=== PATIENT | female | born 1935 ===

== ENCOUNTER 2016-07-28 05:42 | Day surgery (SDC) | payer MEDICARE ==
[2016-05-03 18:54] VITALS: PULSE 66
[2016-07-28 06:39] VITALS: BMI 25.8
[2016-07-28] MEDS ORDERED: Lidocaine Hydrochloride 10 ML INJ ONE (07:58)
[2016-07-28] MEDS ORDERED: Propofol 10 mg/ml Inj (20 ML) ONE ×2 (07:58)
--- NOTE | 2016-07-28 08:15 | CP.SDSHP ---
Same Day Surgery H & P - History Proposed Procedure: endoscopy Pre-Op Diagnosis: epig pain, anemia. wt loss - Previous Medical/Surgical History Cardiac: Arrhythmia Misc: Anemia - Allergies Allergies: Allergies meperidine HCl [From Demerol] Allergy (Severe, Verified 04/28/16 21:21) ANAPHYLAXIS Penicillins Allergy (Intermediate, Verified 04/28/16 21:21) SWELLING - Physical Exam Vital Signs: Vital Signs 07/28/16 06:58 Temperature 97.5 F L Pulse Rate 62 Respiratory 19 Rate Blood Pressure 144/54 L O2 Sat by Pulse 97 Oximetry Mental Status: Alert & Oriented x3 Neuro: WNL Heart: WNL Lungs: WNL GI: WNL - {Optional Preform as Required} Abdomen: WNL - Impression Impression: epig pain, anemia Pt. Evaluated Today:Candidate for Anesthesia & Procedure: Yes - Date & Time Date: 07/28/16 Time: 08:15 Short Stay Discharge - Short Stay Discharge Admitting Diagnosis/Reason for Visit: ABDOMINAL PAIN Disposition: HOME/ ROUTINE
[2016-07-28 08:36] VITALS: TEMP 98.1; O2SAT 100
[2016-07-28 09:28] VITALS: BP 140/60; PULSE 55; RESP 14
== END 2016-07-28 09:35 | disposition home or self-care (01) ==
LOC: C.ENDO 05:42
PROVIDERS: ATTEND Internal Medicine Gastroenterology
DX: K31.7 Polyp of stomach and duodenum (principal); D64.9 Anemia, unspecified; K20.9 Esophagitis, unspecified; K44.9 Diaphragmatic hernia without obstruction or gangrene
CPT/HCPCS: 43270; J2704

== ENCOUNTER 2016-09-03 20:34 | Emergency (ER) | payer MEDICARE ==
[2016-09-03 20:35] VITALS: PULSE 66; BMI 25.8
[2016-09-03] MEDS ORDERED: Albuterol-Ipratrop 3 mg / 0.5 (3 ml) UD ONE (21:17)
[2016-09-03 21:22] VITALS: RESP 22
[2016-09-03] MEDS ORDERED: Albuterol-Ipratrop 3 mg / 0.5 (3 ml) UD INH STA (21:26)
[2016-09-03 22:02] LABS: BASO # 0.2 K/uL (0.0-0.2); BASO % 1.1 % (0.0-2.0); EOS # 1.9 K/uL (0.0-0.7); EOS % 9.3 % (0.0-4.0); HEMATOCRIT 35.8 % (34.0-47.0); LYMPH # 0.3 K/uL (1.0-4.3); LYMPH % 1.3 % (20.0-40.0); MEAN CORPUSCULAR HEMOGLOBIN 29.1 pg (27.0-31.0); MEAN CORPUSCULAR HGB CONC 32.1 g/dL (33.0-37.0); MEAN PLATELET VOLUME 9.7 fL (7.2-11.7); MONO # 0.6 K/uL (0.0-0.8); MONO % 3.1 % (0.0-10.0); PLATELET COUNT 160 K/uL (130-400); RED CELL DISTRIBUTION WIDTH 15.2 % (11.5-14.5)
[2016-09-03 22:05] LABS: MEAN CELL VOLUME 90.7 fL (81.0-99.0)
[2016-09-03 22:12] LABS: CHLORIDE 94 mmol/L (98-107)
[2016-09-03 22:13] LABS: POTASSIUM 4.2 mmol/L (3.6-5.2); SODIUM 132 mmol/L (132-148)
[2016-09-03 22:15] LABS: ALB/GLOB RATIO 1.2 (1.0-2.1); ALKALINE PHOSPHATASE 82 U/L (38-126); AST/SGOT 18 U/L (14-36); BILIRUBIN,TOTAL 1.1 mg/dL (0.2-1.3); BLOOD UREA NITROGEN 24 mg/dL (7-17); CARBON DIOXIDE 26 mmol/L (22-30); GFR AFRICAN-AMERICAN > 60; GLUCOSE,RANDOM 136 mg/dL (65-105); TOTAL PROTEIN 7.4 g/dL (6.3-8.3)
[2016-09-03 22:16] LABS: ALT/SGPT 20 U/L (9-52); CALCIUM 8.5 mg/dl (8.6-10.4)
[2016-09-03 22:35] LABS: EOSINOPHIL 12 % (0-4); NEUTROPHIL 84 % (50-75); TOTAL CELLS COUNTED 100
[2016-09-03 22:36] LABS: LARGE PLATELETS PRESENT
[2016-09-03 22:57] LABS: RBC URINE 8 /hpf (0-3); RENAL EPITHELIAL < 1 /hpf (0-3); URINE BACTERIA RARE (<OCC); URINE BILIRUBIN NEGATIVE (NEGATIVE); URINE BLOOD 1+ (NEGATIVE); URINE COLOR Yellow (YELLOW); URINE GLUCOSE (UA) NORMAL (Normal); URINE KETONE NEGATIVE (NEGATIVE); URINE LEUKOCYTE ESTERASE TRACE Leu/uL (Negative); URINE PROTEIN NEGATIVE (NEGATIVE); URINE UROBILINOGEN NORMAL mg/dL (0.2-1.0); WBC URINE 4 /hpf (0-5)
[2016-09-03 23:08] LABS: VENOUS BLOOD GAS BASE EXCESS 4.2 mmol/L (0.0-2.0); VENOUS BLOOD GAS PCO2 40 mmHg (40-60); VENOUS BLOOD PH 7.46 (7.32-7.43)
[2016-09-03 23:24] VITALS: BP 106/56; PULSE 71; TEMP 97.7
--- NOTE | 2016-09-03 23:24 | C.PDOC ---
History Of Present Illness Patient is an 80 year old female who presents to the ER with a complaint of trouble breathing as per son. Patient had trouble breathing yesterday that resolved on its own; however, this afternoon patient had trouble breathing again and was sent by PCP to the ER. Patient is currently on macrobid for a UTI that was diagnosed by PCP. Son had culture results with him that showed E-coli sensitive to macrobid. Patient is complaint with medication and denies any symptoms of cough, chest pain, fever, chills, abdominal pain, nausea or vomiting. Time Seen by Provider: 09/03/16 21:13 Chief Complaint (Nursing): Shortness Of Breath History Per: Patient History/Exam Limitations: no limitations Onset/Duration Of Symptoms: Hrs Current Symptoms Are (Timing): Still Present Initiating Event: Other (Not known) Current Respiratory Medications: See Home Med List Associated Symptoms: denies: Fever, Chills, Chest Pain, Other (Cough, abdominal pain, nausea, vomiting) Reports Recently: Treated By A Physician Recent travel outside of the [place]: No Past Medical History Reviewed: Historical Data, Nursing Documentation, Vital Signs Vital Signs: Last Vital Signs Temp 97.7 F 09/03/16 23:23 Pulse 71 09/03/16 23:23 Resp 22 09/03/16 23:23 BP 106/56 L 09/03/16 23:23 Pulse Ox 98 09/03/16 23:26 - Medical History PMH: Asthma, Atrial Fibrillation, CHF, COPD, HTN, Mitral Valve Prolapse (MITRAL VALVE REPAIR), Sleep Apnea Surgical History: Appendectomy - [facility] Procedures DRAINAGE OF STOMACH WITH DRAINAGE DEVICE, VIA OPENING (04/28/16) RELEASE SMALL INTESTINE, OPEN APPROACH (03/11/15) Family History: States: Unknown Family Hx - Social History Hx Tobacco Use: No Hx Alcohol Use: No - Immunization History Hx Tetanus Toxoid Vaccination: No Hx Influenza Vaccination: Yes Hx Pneumococcal Vaccination: Yes Review Of Systems Constitutional: Negative for: Fever, Chills Cardiovascular: Negative for: Chest Pain Respiratory: Positive for: Shortness of Breath Gastrointestinal: Negative for: Nausea, Vomiting, Abdominal Pain Physical Exam - Physical Exam Appears: Non-toxic, No Acute Distress Skin: Normal Color, Warm, Dry Head: Atraumatic, Normacephalic Oral Mucosa: Moist Chest: Symmetrical, No Tenderness Cardiovascular: Rhythm Regular, No Murmur Respiratory: Decreased Breath Sounds, No Rales, Rhonchi (At bases), No Wheezing Gastrointestinal/Abdominal: Soft, No Tenderness Extremity: Pedal Edema (1+) Neurological/Psych: Oriented x3, Normal Speech, Normal Cognition ED Course And Treatment - Laboratory Results Result Diagrams: 09/03/16 21:57 09/03/16 21:57 O2 Sat by Pulse Oximetry: 98 - Radiology CXR: Interpreted by Me, Viewed By Me CXR Interpretation: Yes: Other (CHF) Medical Decision Making Medical Decision Making: Impression: 80 year old female with SOB. Plan: * EKG * CXR * urine culture * Duoneb * Lasix 1 duoneb was given with minimal improvement. Lasix was administered with moderate improvement. Patient had a white count of 20,000 and a mildly elevated BMP. Discussed with Dr. Cruz, patients PCP, who requested lactate; if results are ok then patient can be discharged home with lasix and instructions to follow up with him at the office on Monday. Disposition Counseled Patient/Family Regarding: Diagnosis, Need For Followup - Disposition Referrals: Bambi Cruz MD [Staff Provider] - Disposition: HOME/ ROUTINE Disposition Time: 23:21 Condition: GOOD Additional Instructions: Increase lasix to twice a day Follow up with dr Cruz 2- 3 days Return to the ED for any new or worsening symptoms Instructions: Heart Failure (ED) Print Language: SAO TOMEAN - Clinical Impression Clinical Impression: Dyspnea, CHF (congestive heart failure) - Scribe Statement The provider has reviewed the documentation as recorded by the Scribe Louis Maldonado All medical record entries made by the Scribe were at my direction and personally dictated by me. I have reviewed the chart and agree that the record accurately reflects my personal performance of the history, physical exam, medical decision making, and the department course for this patient. I have also personally directed, reviewed, and agree with the discharge instructions and disposition.
[2016-09-03 23:25] VITALS: O2SAT 98
--- NOTE | 2016-09-04 08:27 | RAD ---
PROCEDURE: CHEST RADIOGRAPH, 1 VIEW HISTORY: Shortness of breath COMPARISON: 05/31/2016 FINDINGS: LUNGS: Moderate to severe venous congestion. Prominent consolidative changes at the mid to lower lung zones with associated small to moderate bilateral pleural effusions. Scattered nodularity in both lungs. Biapical pleural thickening with upper lobe granulomatous changes. PLEURA: As above. CARDIOVASCULAR: Cardiomegaly. Calcification at the aortic knob. OSSEOUS STRUCTURES: Degenerative changes in the spine and shoulders. VISUALIZED UPPER ABDOMEN: Normal. OTHER FINDINGS: None. IMPRESSION: Moderate to severe venous congestion. Prominent consolidative changes at the mid to lower lung zones with associated small to moderate bilateral pleural effusions. Scattered nodularity in both lungs. Biapical pleural thickening with upper lobe granulomatous changes. Cardiomegaly. Calcification at the aortic knob.
== END 2016-09-03 23:35 | disposition home or self-care (01) ==
LOC: C.ER 20:34
DX: R06.00 Dyspnea, unspecified (principal); I11.0 Hypertensive heart disease with heart failure; I50.9 Heart failure, unspecified; J44.9 Chronic obstructive pulmonary disease, unspecified; J45.909 Unspecified asthma, uncomplicated
CPT/HCPCS: 71010; 80053; 81001; 82803; 83880; 84484; 85025; 87086; 96374; 99284; J1940

== ENCOUNTER 2018-03-13 13:13 | Observation (INO) | payer MEDICARE ==
[2018-03-13 13:14] VITALS: BMI 25.8
--- NOTE | 2018-03-13 14:19 | C.PDOC ---
History Of Present Illness 82 y/o female with a PMHx of HTN, COPD, CHF, presents to the ED complaining of 3 days of shortness of breath, worsening since onset. SOB worsens with exertion. States she has been unable to sleep due to the dyspnea. Otherwise patient denies cough, phlegm, nausea, vomiting, or fever. She reports mild swelling and generalized weakness/fatigue. Reports increased stress in the last 2 months as her has been sick. PMD: Dr. Cruz Cardiology: Dr. Castaneda Time Seen by Provider: 03/13/18 13:26 Chief Complaint (Nursing): Respiratory Distress History Per: Patient History/Exam Limitations: no limitations Onset/Duration Of Symptoms: Days Current Symptoms Are (Timing): Worse Exacerbating Factor(s): Exertion Past Medical History Reviewed: Historical Data, Nursing Documentation, Vital Signs Vital Signs: Last Vital Signs Temp 97.4 F L 03/13/18 13:16 Pulse 69 03/13/18 13:16 Resp 18 03/13/18 13:16 BP 158/75 H 03/13/18 13:16 Pulse Ox 98 03/13/18 13:16 - Medical History PMH: Asthma, Atrial Fibrillation, CHF, COPD, HTN, Mitral Valve Prolapse (MITRAL VALVE REPAIR), Sleep Apnea Denies: Chronic Kidney Disease Surgical History: Appendectomy Other Surgeries: Mitral valve repair - [facility] Procedures DRAINAGE OF STOMACH WITH DRAINAGE DEVICE, VIA OPENING (04/28/16) RELEASE SMALL INTESTINE, OPEN APPROACH (03/11/15) Family History: States: Unknown Family Hx - Social History Hx Tobacco Use: No Hx Alcohol Use: No Hx Substance Use: No - Immunization History Hx Tetanus Toxoid Vaccination: No Hx Influenza Vaccination: Yes Hx Pneumococcal Vaccination: Yes Review Of Systems Except As Marked, All Systems Reviewed And Found Negative. Constitutional: Positive for: Weakness (and fatigue). Negative for: Fever, Chills Eyes: Negative for: Vision Change Cardiovascular: Negative for: Chest Pain Respiratory: Positive for: Shortness of Breath, SOB with Excertion. Negative for: Cough, Sputum Gastrointestinal: Negative for: Nausea, Vomiting, Abdominal Pain Neurological: Negative for: Headache, Dizziness Physical Exam - Physical Exam Appears: Non-toxic, In Acute Distress (Mild respiratory distress) Skin: Normal Color, Warm, Dry Head: Atraumatic, Normacephalic Eye(s): bilateral: Normal Inspection, PERRL, EOMI Nose: No Flaring Oral Mucosa: Moist Lips: Normal Appearing Neck: Normal ROM, Trachea Midline Lymphatic: No Adenopathy Chest: Symmetrical Cardiovascular: Rhythm Regular, No Murmur Respiratory: No Accessory Muscle Use, Rales (at the bilateral bases), No Wheezing Gastrointestinal/Abdominal: Soft, No Tenderness, No Distention Back: No CVA Tenderness, No Vertebral Tenderness Extremity: Normal ROM, No Calf Tenderness, No Deformity, Swelling (Trace bilateral lower extremity edema) Pulses: Left Radial: Normal, Right Radial: Normal Neurological/Psych: Oriented x3, Other (Anxious affect) ED Course And Treatment - Laboratory Results Result Diagrams: 03/13/18 14:33 03/13/18 14:33 O2 Sat by Pulse Oximetry: 98 (NC) Pulse Ox Interpretation: Normal Medical Decision Making Medical Decision Making: Impression: Shortness of breath Differential diagnosis includes but is not limited to: pleural effusion, pneumonia, ACS, COPD, anemia Plan: --EKG --CMP --Troponin I --Pro-BNP --Magnesium --CBC --D dimer --PTT/PT --Chest x-ray --Placed on O2 via nasal cannula Labs demonstrate increase in pro-BNP. Otherwise no significant abnormalities. Discussed w/ PMD Dr. Cruz, trial of Lasix to be given to patient for relief of dyspnea. If improves, patient can be discharged home with follow up. Discussed with patient plan of care. 2200 On reeval pt continues to be dyspneic with exertion. Pt to be hospitalized for further evaluation Disposition - Disposition Disposition: HOSPITALIZED Disposition Time: 20:00 Condition: FAIR - POA Present On Arrival: None - Clinical Impression Clinical Impression: Congestive heart failure, Dyspnea - Scribe Statement The provider has reviewed the documentation as recorded by the Jessie Osborne Provider Attestation: All medical record entries made by the Jessie were at my direction and personally dictated by me. I have reviewed the chart and agree that the record accurately reflects my personal performance of the history, physical exam, medical decision making, and the department course for this patient. I have also personally directed, reviewed, and agree with the discharge instructions and disposition.
[2018-03-13 14:38] LABS: BASO % 0.3 % (0.0-2.0); EOS # 0.7 K/uL (0.0-0.7); EOS % 8.2 % (0.0-4.0); HEMOGLOBIN 11.8 g/dL (11.0-16.0); LYMPH # 0.6 K/uL (1.0-4.3); LYMPH % 6.8 % (20.0-40.0); MEAN CELL VOLUME 90.7 fL (81.0-99.0); MEAN CORPUSCULAR HEMOGLOBIN 30.1 pg (27.0-31.0); MEAN CORPUSCULAR HGB CONC 33.2 g/dL (33.0-37.0); MEAN PLATELET VOLUME 9.9 fL (7.2-11.7); MONO # 0.6 K/uL (0.0-0.8); MONO % 7.1 % (0.0-10.0); NEUT # 6.3 K/uL (1.8-7.0); NEUT % 77.6 % (50.0-75.0); PLATELET COUNT 154 K/uL (130-400); RBC 3.92 Mil/uL (3.80-5.20); RED CELL DISTRIBUTION WIDTH 16.1 % (11.5-14.5); WHITE BLOOD COUNT 8.1 K/uL (4.8-10.8)
[2018-03-13 15:03] LABS: ALB/GLOB RATIO 1.3 (1.0-2.1); ALBUMIN 4.3 g/dL (3.5-5.0)
[2018-03-13 15:13] LABS: INR 1.3; PARTIAL THROMBOPLASTIN TIME 34 SECONDS (21-34); PROTHROMBIN TIME 14.4 SECONDS (9.7-12.2)
[2018-03-13 15:15] LABS: TROPONIN I 0.016 ng/mL (0.00-0.120)
[2018-03-13 15:22] LABS: D DIMER < 200 ng/mlDDU (0-243)
[2018-03-13] MEDS ORDERED: Nitroglycerin 2% Ointment Foilpak UD TOP STA (15:23)
[2018-03-13 15:29] LABS: BASOPHIL 1 % (0-2); EOSINOPHIL 5 % (0-4); LYMPHOCYTE 8 % (20-40); MONOCYTE 8 % (0-10); NEUTROPHIL 78 % (50-75); PLATELET ESTIMATE NORMAL (NORMAL); TOTAL CELLS COUNTED 100
[2018-03-13 15:30] LABS: ANISOCYTOSIS SLIGHT; HYPOCHROMIC SLIGHT; POIKILOCYTOSIS SLIGHT
[2018-03-13] MEDS ORDERED: Nitroglycerin 2% Ointment Foilpak UD TOP ONE (15:40)
--- NOTE | 2018-03-13 16:58 | RAD ---
HISTORY: SOB COMPARISON: Chest x-ray performed 08/30/17 TECHNIQUE: Chest PA and lateral FINDINGS: LUNGS: Small left pleural effusion and/or consolidation. Biapical pleural thickening. No definite pneumothorax. CARDIOVASCULAR: Cardiomegaly. Ectatic aorta. Dense atherosclerotic calcifications. OSSEOUS STRUCTURES: Degenerative changes. VISUALIZED UPPER ABDOMEN: Unremarkable. OTHER FINDINGS: None. IMPRESSION: Cardiomegaly. Small left pleural effusion and/or consolidation. Biapical pleural thickening.
[2018-03-13 18:23] VITALS: RESP 20
[2018-03-13] MEDS ORDERED: Albuterol-Ipratrop 3 mg / 0.5 (3 ml) UD IH PRN ×2 (19:03→19:15)
--- NOTE | 2018-03-13 19:14 | CP.PCM.HP ---
History of Present Illness - History of Present Illness History of Present Illness: Chief complaint: Increasing shortness of breath, fatigue, unable to lie down History present illness: 82-year-old female with history of hypertension, atrial fibrillation, mitral valve repair, status post mitral valve prolapse repair, postoperative pleural effusion and the pulmonary fibrosis, history of sleep apnea using CPAP, history of congestive heart failure, on anticoagulation. Patient came to the office a few weeks ago at that time she started having some weight gain, diuretics was increased. But the patient started having increasing symptoms of shortness of breath. For 4 days she have worsening shortness of breath even at rest. She was not able to do given few steps to go to the bathroom because of increasing shortness of breath. She was not able to lie flat. She is using oxygen as well as BiPAP, after 20 minutes she has to get up from the bed because she is feeling choking sensation with sleeping. Patient denies any fever chills or any other systemic symptoms. No chest pain noted. Patient is also very anxious and sometimes concerned about palpitation, chest tightness. Past medical history: Hypertension, atrial fibrillation, mitral valve repair, congestive heart failure, ablation Surgical history includes small bowel resection surgery, mitral valve repair. Allergies allergic to Demerol and had allergic to Coumadin. Family history noncontributory Social history lifelong nonsmoker, nonalcoholic, she used to work in the chemical factory in the past no history of gas are seen exposure Review of system: Patient is currently complaining of increasing shortness of breath. Unable to lie flat. Exertional dyspnea noted. Recently getting worse with even at rest the shortness of breath noted. No chest pain. Leg swelling noted. Weight gain present. Increasingly anxious. In spite of the oxygen no improvement recently noted On examination: Vital signs reviewed Chest bilateral good air entry. Regular heart sound noted. Nontender abdomen. The patient has some mild expiratory wheezing noted. Pedal edema bilaterally noted. She has a significant weight gain recently Patient's labs reviewed Elevated proBNP Noted. Cardiac enzymes negative Chest x-ray mild vascular congestion noted. Otherwise nonspecific Assessment/condition: 82-year-old female with history of hypertension atrial fibrillation mitral valve repair, congestive heart failure, pleural effusion History of congestive heart failure. Atrial flutter fibrillation. On anticoagulant. Patient came to the emergency room with acute exacerbation of systolic decompensated heart failure likely. We will get echocardiogram. Cardiology evaluation. Patient will continue to receive intravenous diuretics. Daily weight monitoring. Oxygen supplementation. BiPAP. DVT GI prophylaxis and will follow the patient I spoke to the patient's daughter in detail. We will get a cardiology evaluation and will follow the patient Present on Admission - Present on Admission Any Indicators Present on Admission: No History of DVT/PE: No History of Uncontrolled Diabetes: No Urinary Catheter: No Decubitus Ulcer Present: No Past Patient History - Infectious Disease Hx of Infectious Diseases: None - Past Medical History & Family History Past Medical History?: Yes - Past Social History Smoking Status: Never Smoked - CARDIAC Hx Atrial Fibrillation: Yes Hx Congestive Heart Failure: Yes Hx Hypertension: Yes Hx Mitral Valve Prolapse: Yes (MITRAL VALVE REPAIR) - PULMONARY Hx Asthma: Yes Hx Chronic Obstructive Pulmonary Disease (COPD): Yes Hx Sleep Apnea: Yes - NEUROLOGICAL Hx Neurological Disorder: Yes Hx Vertigo: Yes - HEENT Hx HEENT Problems: Yes Hx Cataracts: Yes - RENAL Hx Chronic Kidney Disease: No - ENDOCRINE/METABOLIC Hx Endocrine Disorders: No - HEMATOLOGICAL/ONCOLOGICAL Hx Blood Disorders: No - INTEGUMENTARY Hx Dermatological Problems: No - MUSCULOSKELETAL/RHEUMATOLOGICAL Hx Musculoskeletal Disorders: No - GASTROINTESTINAL Hx Gastrointestinal Disorders: No Other/Comment: H/O INTESTINAL OBSTRUX X 3 - GENITOURINARY/GYNECOLOGICAL Hx Genitourinary Disorders: Yes Hx Incontinence: Yes - PSYCHIATRIC Hx Substance Use: No - SURGICAL HISTORY Hx Appendectomy: Yes - ANESTHESIA Hx Anesthesia: Yes Hx Anesthesia Reactions: No Hx Malignant Hyperthermia: No Meds Allergies/Adverse Reactions: Allergies Allergy/AdvReac Type Severity Reaction Status Date / Time meperidine HCl [From Demerol] Allergy Severe ANAPHYLAXIS Verified 04/28/16 21:21 Penicillins Allergy Intermediate SWELLING Verified 04/28/16 21:21 Results - Vital Signs Recent Vital Signs: Last Vital Signs Temp 97.2 F L 03/13/18 17:45 Pulse 68 03/13/18 17:45 Resp 20 03/13/18 17:45 BP 159/79 H 03/13/18 17:45 Pulse Ox 99 03/13/18 17:45 - Labs Result Diagrams: 03/13/18 14:33 03/13/18 14:33 Labs: Laboratory Results - last 24 hr 03/13/18 03/13/18 03/13/18 14:33 14:33 14:45 WBC 8.1 D RBC 3.92 Hgb 11.8 Hct 35.6 MCV 90.7 MCH 30.1 MCHC 33.2 RDW 16.1 H Plt Count 154 MPV 9.9 Neut % (Auto) 77.6 H Lymph % (Auto) 6.8 L [place] % (Auto) 7.1 Eos % (Auto) 8.2 H Baso % (Auto) 0.3 Neut # (Auto) 6.3 Lymph # (Auto) 0.6 L [place] # (Auto) 0.6 Eos # (Auto) 0.7 Baso # (Auto) 0.0 Neutrophils % (Manual) 78 H Lymphocytes % (Manual) 8 L Monocytes % (Manual) 8 Eosinophils % (Manual) 5 H Basophils % (Manual) 1 Platelet Estimate Normal Hypochromasia (manual) Slight Poikilocytosis (manual Slight Anisocytosis (manual) Slight PT INR APTT D-Dimer, Quantitative Sodium 139 Potassium 4.0 Chloride 99 Carbon Dioxide 28 Anion Gap 16 BUN 28 H Creatinine 1.2 Est GFR ( Amer) 52 Est GFR (Non-Af Amer) 43 Random Glucose 107 H Calcium 9.0 Magnesium 2.1 Total Bilirubin 1.3 AST 42 H ALT 36 Alkaline Phosphatase 96 Troponin I 0.0160 NT-Pro-B Natriuret Pep 2890 H Total Protein 7.5 Albumin 4.3 Globulin 3.3 Albumin/Globulin Ratio 1.3 Blood Type O NEGATIVE Antibody Screen Negative 03/13/18 14:47 WBC RBC Hgb Hct MCV MCH MCHC RDW Plt Count MPV Neut % (Auto) Lymph % (Auto) [place] % (Auto) Eos % (Auto) Baso % (Auto) Neut # (Auto) Lymph # (Auto) [place] # (Auto) Eos # (Auto) Baso # (Auto) Neutrophils % (Manual) Lymphocytes % (Manual) Monocytes % (Manual) Eosinophils % (Manual) Basophils % (Manual) Platelet Estimate Hypochromasia (manual) Poikilocytosis (manual Anisocytosis (manual) PT 14.4 H INR 1.3 APTT 34 D-Dimer, Quantitative < 200 Sodium Potassium Chloride Carbon Dioxide Anion Gap BUN Creatinine Est GFR ( Amer) Est GFR (Non-Af Amer) Random Glucose Calcium Magnesium Total Bilirubin AST ALT Alkaline Phosphatase Troponin I NT-Pro-B Natriuret Pep Total Protein Albumin Globulin Albumin/Globulin Ratio Blood Type Antibody Screen
[2018-03-14 06:48] LABS: BASO # 0.1 K/uL (0.0-0.2); EOS # 1.3 K/uL (0.0-0.7); EOS % 13.7 % (0.0-4.0); HEMOGLOBIN 10.8 g/dL (11.0-16.0); LYMPH # 0.6 K/uL (1.0-4.3); LYMPH % 6.9 % (20.0-40.0); MEAN CELL VOLUME 90.1 fL (81.0-99.0); MEAN CORPUSCULAR HEMOGLOBIN 29.8 pg (27.0-31.0); MEAN CORPUSCULAR HGB CONC 33.1 g/dL (33.0-37.0); MEAN PLATELET VOLUME 9.5 fL (7.2-11.7); MONO # 0.7 K/uL (0.0-0.8); MONO % 7.8 % (0.0-10.0); NEUT # 6.6 K/uL (1.8-7.0); NEUT % 70.6 % (50.0-75.0); PLATELET COUNT 142 K/uL (130-400); RBC 3.63 Mil/uL (3.80-5.20); RED CELL DISTRIBUTION WIDTH 15.8 % (11.5-14.5); WHITE BLOOD COUNT 9.4 K/uL (4.8-10.8)
[2018-03-14 07:00] LABS: ALB/GLOB RATIO 1.3 (1.0-2.1); ALBUMIN 3.6 g/dL (3.5-5.0); CALCIUM 8.6 mg/dl (8.6-10.4)
[2018-03-14 07:08] LABS: CK-MB 2.2 ng/mL (0.0-3.38); TROPONIN I 0.036 ng/mL (0.00-0.120)
[2018-03-14 08:34] LABS: ANISOCYTOSIS SLIGHT; BASOPHIL 1 % (0-2); EOSINOPHIL 14 % (0-4); HYPOCHROMIC SLIGHT; LYMPHOCYTE 4 % (20-40); MONOCYTE 8 % (0-10); NEUTROPHIL 73 % (50-75); PLATELET ESTIMATE NORMAL (NORMAL); POIKILOCYTOSIS SLIGHT; TOTAL CELLS COUNTED 100
[2018-03-14 08:35] LABS: OVALOCYTES SLIGHT
[2018-03-14] MEDS: Potassium Chloride 20 mEq/15 ml LIQ UD PO SCH (09:31)
[2018-03-14] MEDS: Metoprolol Succinate 25 mg XL Tab PO SCH (09:31)
--- NOTE | 2018-03-14 12:21 | CARD ---
APPROVED REPORT Date of service: 03/13/2018 EKG Measurement Heart [id number] ID [id number] <Conclusion> Normal sinus rhythm Left axis deviation Pulmonary disease pattern Nonspecific ST abnormality Abnormal ECG
[2018-03-14 15:57] VITALS: O2SAT 100
[2018-03-14] MEDS ORDERED: Digoxin 125 mcg (0.125 mg) Tab PO SCH (18:00)
[2018-03-14 18:25] VITALS: PULSE 69
--- NOTE | 2018-03-14 21:20 | CP.PCM.PN ---
Subjective - Date & Time of Evaluation Date of Evaluation: 03/14/18 Time of Evaluation: 21:18 - Subjective Subjective: Patient is now sitting up, she is also standing up and able to walk comfortably. Exertional dyspnea still noted. Patient has a JVD elevated noted. palpitation noted. Oxygen saturation is otherwise normal. Without oxygen room air oxygen saturation is 95%. patient denies any chest pain now. She denies any nausea vomiting. She is using the BiPAP 10/5 45% FiO2, she is feeling much better. On examination: Vital signs stable. Chest good air entry Regular heart sounds Systolic murmur noted. Abdomen soft. No pedal edema Echocardiogram done, results are pending. Labs reviewed Elevated CPK level minimally noted. Patient is currently receiving intravenous Lasix. Assessment: 82-year-old female with a history of multiple medical problems including mitral valve repair. A. fib. Pulmonary hypertension. Now suffering from advanced cor pulmonale. Pulmonary hypertension. Obstructive sleep apnea. Associated with worsening decompensated diastolic heart failure. In my opinion patient will benefit with BiPAP at home. Oxygen to continue. We will get the cardiology information about the echocardiogram. We will discuss with environmental services floor tech and family and the possible discharge planning tomorrow Objective - Vital Signs/Intake and Output Vital Signs (last 24 hours): Temp Pulse Resp BP Pulse Ox 98.1 F 62 20 121/65 100 03/14/18 15:55 03/14/18 15:55 03/14/18 15:55 03/14/18 15:55 03/14/18 15:55 Intake and Output: 03/14/18 03/15/18 18:59 06:59 Intake Total 300 Balance 300 - Medications Medications: Current Medications Albuterol/Ipratropium (Duoneb 3 Mg/0.5 Mg (3 Ml) Ud) 3 ml IH RQ6 PRN PRN Reason: Cough Last Admin: 03/14/18 13:15 Dose: 3 ml Alprazolam (Xanax) 0.5 mg PO HS PRN PRN Reason: insomnia Last Admin: 03/13/18 22:11 Dose: 0.5 mg Apixaban (Eliquis) 5 mg PO Q12 [facility] Last Admin: 03/14/18 09:31 Dose: 5 mg Digoxin (Digoxin) 0.125 mg PO DAILY@1800 [facility] Last Admin: 03/14/18 18:24 Dose: 0.125 mg Furosemide (Lasix) 20 mg PO DAILY [facility] Metoprolol Succinate (Toprol Xl) 25 mg PO DAILY [facility] Last Admin: 03/14/18 09:31 Dose: 25 mg Montelukast Sodium (Singulair) 10 mg PO HS [facility] Last Admin: 03/13/18 21:31 Dose: 10 mg Potassium Chloride (Potassium Chloride Oral Soln) 20 meq PO DAILY [facility] Last Admin: 03/14/18 09:31 Dose: 20 meq - Labs Labs: 03/14/18 06:35 03/14/18 06:35 PT 14.4 SECONDS (9.7-12.2) H 03/13/18 14:47 INR 1.3 03/13/18 14:47 APTT 34 SECONDS (21-34) 03/13/18 14:47
--- NOTE | 2018-03-14 22:10 | CP.PCM.CON ---
History of Present Illness - History of Present Illness History of Present Illness: CC: Dyspnea 82 y/o female with a PMHx of HTN, COPD, CHF, presents to the ED complaining of 3 days of shortness of breath, worsening since onset. SOB worsens with exertion. States she has been unable to sleep due to the dyspnea. Otherwise patient denies cough, phlegm, nausea, vomiting, or fever. She reports mild swelling and generalized weakness/fatigue. Reports increased stress in the last 2 months as her has been sick. PMD: Dr. Cruz Chief Complaint (Nursing): Respiratory Distress History Per: Patient History/Exam Limitations: no limitations Onset/Duration Of Symptoms: Days Current Symptoms Are (Timing): Worse Exacerbating Factor(s): Exertion Past Medical History Reviewed: Historical Data, Nursing Documentation, Vital Signs Vital Signs: Last Vital Signs Temp 97.4 F L 03/13/18 13:16 Pulse 69 03/13/18 13:16 Resp 18 03/13/18 13:16 BP 158/75 H 03/13/18 13:16 Pulse Ox 98 03/13/18 13:16 - Medical History PMH: Asthma, Atrial Fibrillation, CHF, COPD, HTN, Mitral Valve Prolapse (MITRAL VALVE REPAIR), Sleep Apnea Denies: Chronic Kidney Disease Surgical History: Appendectomy Other Surgeries: Mitral valve repair - [facility] Procedures DRAINAGE OF STOMACH WITH DRAINAGE DEVICE, VIA OPENING (04/28/16) RELEASE SMALL INTESTINE, OPEN APPROACH (03/11/15) Family History: States: Unknown Family Hx - Social History Hx Tobacco Use: No Hx Alcohol Use: No Hx Substance Use: No - Immunization History Hx Tetanus Toxoid Vaccination: No Hx Influenza Vaccination: Yes Hx Pneumococcal Vaccination: Yes Review Of Systems Except As Marked, All Systems Reviewed And Found Negative. Constitutional: Positive for: Weakness (and fatigue). Negative for: Fever, Chills Eyes: Negative for: Vision Change Cardiovascular: Negative for: Chest Pain Respiratory: Positive for: Shortness of Breath, SOB with Excertion. Negative for: Cough, Sputum Gastrointestinal: Negative for: Nausea, Vomiting, Abdominal Pain Neurological: Negative for: Headache, Dizziness Physical Exam - Physical Exam Appears: Non-toxic, In Acute Distress (Mild respiratory distress) Skin: Normal Color, Warm, Dry Head: Atraumatic, Normacephalic Eye(s): bilateral: Normal Inspection, PERRL, EOMI Nose: No Flaring Oral Mucosa: Moist Lips: Normal Appearing Neck: Normal ROM, Trachea Midline Lymphatic: No Adenopathy Chest: Symmetrical Cardiovascular: Rhythm Regular, No Murmur Respiratory: No Accessory Muscle Use, Rales (at the bilateral bases), No Wheezing Gastrointestinal/Abdominal: Soft, No Tenderness, No Distention Back: No CVA Tenderness, No Vertebral Tenderness Extremity: Normal ROM, No Calf Tenderness, No Deformity, Swelling (Trace bilateral lower extremity edema) Pulses: Left Radial: Normal, Right Radial: Normal Neurological/Psych: Oriented x3, Other (Anxious affect) Medical Decision Making Medical Decision Making: Impression: Shortness of breath Severe Pulmonary HTN Hx MV repair O2/BiPAP and Lasix as needed Likely benefit from Pulm HTN clinic Past Patient History - Infectious Disease Hx of Infectious Diseases: None - Past Medical History & Family History Past Medical History?: Yes - Past Social History Smoking Status: Never Smoked - CARDIAC Hx Congestive Heart Failure: Yes Hx Hypertension: Yes - PULMONARY Hx Chronic Obstructive Pulmonary Disease (COPD): Yes - NEUROLOGICAL Hx Neurological Disorder: Yes Hx Vertigo: Yes - HEENT Hx HEENT Problems: Yes Hx Cataracts: Yes - RENAL Hx Chronic Kidney Disease: No - ENDOCRINE/METABOLIC Hx Endocrine Disorders: No - HEMATOLOGICAL/ONCOLOGICAL Hx Blood Disorders: No - INTEGUMENTARY Hx Dermatological Problems: No - MUSCULOSKELETAL/RHEUMATOLOGICAL Hx Musculoskeletal Disorders: No - GASTROINTESTINAL Hx Gastrointestinal Disorders: No Other/Comment: H/O INTESTINAL OBSTRUX X 3 - GENITOURINARY/GYNECOLOGICAL Hx Genitourinary Disorders: Yes Hx Incontinence: Yes - PSYCHIATRIC Hx Substance Use: No - SURGICAL HISTORY Hx Appendectomy: Yes - ANESTHESIA Hx Anesthesia: Yes Hx Anesthesia Reactions: No Hx Malignant Hyperthermia: No Meds Allergies/Adverse Reactions: Allergies Allergy/AdvReac Type Severity Reaction Status Date / Time meperidine HCl [From Demerol] Allergy Severe ANAPHYLAXIS Verified 04/28/16 21:21 Penicillins Allergy Intermediate SWELLING Verified 04/28/16 21:21 - Medications Medications: Current Medications Albuterol/Ipratropium (Duoneb 3 Mg/0.5 Mg (3 Ml) Ud) 3 ml IH RQ6 PRN PRN Reason: Cough Last Admin: 03/14/18 13:15 Dose: 3 ml Alprazolam (Xanax) 0.5 mg PO HS PRN PRN Reason: insomnia Last Admin: 03/14/18 21:21 Dose: 0.5 mg Apixaban (Eliquis) 5 mg PO Q12 [facility] Last Admin: 03/14/18 21:21 Dose: 5 mg Digoxin (Digoxin) 0.125 mg PO DAILY@1800 [facility] Last Admin: 03/14/18 18:24 Dose: 0.125 mg Furosemide (Lasix) 20 mg PO DAILY [facility] Metoprolol Succinate (Toprol Xl) 25 mg PO DAILY [facility] Last Admin: 03/14/18 09:31 Dose: 25 mg Montelukast Sodium (Singulair) 10 mg PO HS [facility] Last Admin: 03/14/18 21:21 Dose: 10 mg Potassium Chloride (Potassium Chloride Oral Soln) 20 meq PO DAILY [facility] Last Admin: 03/14/18 09:31 Dose: 20 meq Results - Vital Signs Recent Vital Signs: Last Vital Signs Temp 98.1 F 03/14/18 15:55 Pulse 62 03/14/18 15:55 Resp 20 03/14/18 15:55 BP 121/65 03/14/18 15:55 Pulse Ox 100 03/14/18 15:55 - Labs Result Diagrams: 03/14/18 06:35 03/14/18 06:35 Labs: Laboratory Results - last 24 hr 03/14/18 03/14/18 06:35 06:35 WBC 9.4 RBC 3.63 L Hgb 10.8 L Hct 32.7 L MCV 90.1 MCH 29.8 MCHC 33.1 RDW 15.8 H Plt Count 142 MPV 9.5 Neut % (Auto) 70.6 Lymph % (Auto) 6.9 L [place] % (Auto) 7.8 Eos % (Auto) 13.7 H Baso % (Auto) 1.0 Neut # (Auto) 6.6 Lymph # (Auto) 0.6 L [place] # (Auto) 0.7 Eos # (Auto) 1.3 H Baso # (Auto) 0.1 Neutrophils % (Manual) 73 Lymphocytes % (Manual) 4 L Monocytes % (Manual) 8 Eosinophils % (Manual) 14 H Basophils % (Manual) 1 Platelet Estimate Normal Hypochromasia (manual) Slight Poikilocytosis (manual Slight Anisocytosis (manual) Slight Ovalocytes Slight Sodium 137 Potassium 3.6 Chloride 98 Carbon Dioxide 31 H Anion Gap 11 BUN 29 H Creatinine 1.2 Est GFR ( Amer) 52 Est GFR (Non-Af Amer) 43 Random Glucose 100 Calcium 8.6 Phosphorus 4.2 Magnesium 2.1 Total Bilirubin 1.4 H AST 37 H ALT 35 Alkaline Phosphatase 81 Total Creatine Kinase 453 H CK-MB (Mass) 2.20 Troponin I 0.0360 Total Protein 6.4 Albumin 3.6 Globulin 2.8 Albumin/Globulin Ratio 1.3
[2018-03-15 08:21] VITALS: TEMP 98.6
[2018-03-15 10:05] VITALS: PULSE 66
[2018-03-15] MEDS: Metoprolol Succinate 25 mg XL Tab PO SCH (10:21)
[2018-03-15 10:24] VITALS: BP 122/57
[2018-03-15] MEDS: Potassium Chloride 20 mEq/15 ml LIQ UD PO SCH (10:25)
--- NOTE | 2018-03-15 15:27 | CP.PCM.PN ---
Subjective - Date & Time of Evaluation Date of Evaluation: 03/15/18 Time of Evaluation: 10:50 - Subjective Subjective: Patient seen today , states sob improved , denies any chest pain, dizziness , N/V , oob to BR without o2 and minimal dyspnea noted on exertion vss and labs reviewed -stable Objective - Vital Signs/Intake and Output Vital Signs (last 24 hours): Temp Pulse Resp BP Pulse Ox 98.6 F 66 20 122/57 L 100 03/15/18 07:00 03/15/18 08:10 03/15/18 07:00 03/15/18 10:21 03/15/18 07:00 - Medications Medications: Current Medications Albuterol/Ipratropium (Duoneb 3 Mg/0.5 Mg (3 Ml) Ud) 3 ml IH RQ6 PRN PRN Reason: Cough Last Admin: 03/14/18 13:15 Dose: 3 ml Alprazolam (Xanax) 0.5 mg PO HS PRN PRN Reason: insomnia Last Admin: 03/14/18 21:21 Dose: 0.5 mg Apixaban (Eliquis) 5 mg PO Q12 [facility] Last Admin: 03/15/18 10:23 Dose: 5 mg Digoxin (Digoxin) 0.125 mg PO DAILY@1800 [facility] Last Admin: 03/14/18 18:24 Dose: 0.125 mg Furosemide (Lasix) 20 mg PO DAILY [facility] Last Admin: 03/15/18 10:21 Dose: 20 mg Metoprolol Succinate (Toprol Xl) 25 mg PO DAILY [facility] Last Admin: 03/15/18 10:21 Dose: 25 mg Montelukast Sodium (Singulair) 10 mg PO HS [facility] Last Admin: 03/14/18 21:21 Dose: 10 mg Potassium Chloride (Potassium Chloride Oral Soln) 20 meq PO DAILY [facility] Last Admin: 03/15/18 10:25 Dose: 20 meq - Labs Labs: 03/14/18 06:35 03/14/18 06:35 PT 14.4 SECONDS (9.7-12.2) H 03/13/18 14:47 INR 1.3 03/13/18 14:47 APTT 34 SECONDS (21-34) 03/13/18 14:47 - Constitutional Appears: Well, No Acute Distress Assessment and Plan - Assessment and Plan (Free Text) Assessment: A/P 82 y/o female with a PMHx of HTN, COPD, CHF, admitted with worsening of shortness of breath, Patient received Lasix IV CT SCAN done official result pending D/w Dr. Cruz , cleared for discharge home today and f/u with Dr. Cruz office in 1 week discharge plan discussed with patient and son at bed side
--- NOTE | 2018-03-15 15:40 | PCM.HF ---
Heart Failure Core Measure - Heart Failure Ejection Fraction: 40 % or Greater DEMARCO Inhibitor Prescribed: No Contraindication/Reason for not providing: ef>45 Beta-Dawn Prescribed: Metoprolol Succinate Angiotensin II Receptor Dawn Prescribed: No Contraindication/Reason for not providing: ef>45 AnticoagulationTherapy for Atrial Fibrillation/Atrialflutter: Yes Aldosterone Antagonist Prescribed: No Contraindication/Reason for not providing: ef>45 Hydralazine Nitrate Prescribed: No Contraindication/Reason for not providing: ef>45 Implantable Cardioverter Defibrillator Therapy: No Contraindication/Reason for not providing: ef>45 Cardiac Resynchronization Therapy Prescribed: No Contraindication/Reason for not providing: ef>45 - Follow up Will be discharged to: Home Follow Up Date (must be within 7 days from discharge): 03/19/18 Follow Up Time: 16:00
--- NOTE | 2018-03-15 15:53 | CT ---
Date of service: 03/15/2018 CT chest without IV contrast Indication: pulmonary fibrosis Technique: Contiguous axial images were obtained through the chest without intravenous contrast enhancement. Sagittal and coronal reconstructions were generated and reviewed. This CT exam was performed using 1 or more of the following dose reduction techniques: Automated exposure control, adjustment of the MAA and/or kV according to patient size, and/or use of iterative reconstruction technique. Radiation dose (DLP): 403.5 MGy-cm. Comparison: Chest x-ray performed 03/13/18, CT chest/abdomen without contrast performed 03/25/13 Findings: Visualized portions of the inferior thyroid gland with at least 2 sub cm hypodense nodules at the right lower pole at least 1 of which contains associated coarse calcification. The mediastinal and hilar vascular structures appear within normal limits. The heart appears within normal limits of size. Coronary artery calcifications. Dense mitral annulus calcification. Ascending aortic aneurysm measures approximately 4.1 cm in AP dimension. Dense atherosclerotic calcifications of the aorta. Mediastinal adenopathy measuring up to 9 mm in short axis. Small right pleural effusion. No pneumothorax. Right middle lobe calcified granuloma. Punctate right lung base calcification. 5 mm right middle lobe nodule/scar appears stable since prior study. Limited visualization of the noncontrast upper abdomen: Numerous hypodense hepatic masses consistent with cyst measuring up to 2.2 cm at the dome. Additional too small to characterize hepatic hypodensities. Small hiatal hernia/distal esophageal wall thickening. Osseous demineralization. Multilevel degenerative changes. Impression: Ascending aortic aneurysm measures approximately 4.1 cm in AP dimension. Small right pleural effusion. Right basilar atelectasis. Stable appearing 5 mm right middle lobe nodule/scar. Limited visualization of the noncontrast upper abdomen: Numerous hypodense hepatic masses consistent with cysts measuring up to 2.2 cm at the dome. Additional too small to characterize hepatic hypodensities. Visualized portions of the inferior thyroid gland with at least 2 sub cm hypodense nodules at the right lower pole at least 1 of which contains associated coarse calcification. Additional findings as above.
--- NOTE | 2018-03-15 19:28 | CP.PCM.DIS ---
Provider - Provider Date of Admission: 03/13/18 16:32 Attending physician: Bambi Cruz MD Consults: 03/13/18 16:34 Cardiology Consult Stat Comment: Consulting Provider: Bipin Castaneda Consulting Physician: Bipin Castaneda Reason for Consult: CHF exacerbation Time Spent in preparation of Discharge (in minutes): 45 Hospital Course - Lab Results Lab Results: Most Recent Lab Values WBC 9.4 K/uL (4.8-10.8) 03/14/18 06:35 RBC 3.63 Mil/uL (3.80-5.20) L 03/14/18 06:35 Hgb 10.8 g/dL (11.0-16.0) L 03/14/18 06:35 Hct 32.7 % (34.0-47.0) L 03/14/18 06:35 MCV 90.1 fL (81.0-99.0) 03/14/18 06:35 MCH 29.8 pg (27.0-31.0) 03/14/18 06:35 MCHC 33.1 g/dL (33.0-37.0) 03/14/18 06:35 RDW 15.8 % (11.5-14.5) H 03/14/18 06:35 Plt Count 142 K/uL (130-400) 03/14/18 06:35 MPV 9.5 fL (7.2-11.7) 03/14/18 06:35 Neut % (Auto) 70.6 % (50.0-75.0) 03/14/18 06:35 Lymph % (Auto) 6.9 % (20.0-40.0) L 03/14/18 06:35 [place] % (Auto) 7.8 % (0.0-10.0) 03/14/18 06:35 Eos % (Auto) 13.7 % (0.0-4.0) H 03/14/18 06:35 Baso % (Auto) 1.0 % (0.0-2.0) 03/14/18 06:35 Neut # (Auto) 6.6 K/uL (1.8-7.0) 03/14/18 06:35 Lymph # (Auto) 0.6 K/uL (1.0-4.3) L 03/14/18 06:35 [place] # (Auto) 0.7 K/uL (0.0-0.8) 03/14/18 06:35 Eos # (Auto) 1.3 K/uL (0.0-0.7) H 03/14/18 06:35 Baso # (Auto) 0.1 K/uL (0.0-0.2) 03/14/18 06:35 Neutrophils % (Manual) 73 % (50-75) 03/14/18 06:35 Lymphocytes % (Manual) 4 % (20-40) L 03/14/18 06:35 Monocytes % (Manual) 8 % (0-10) 03/14/18 06:35 Eosinophils % (Manual) 14 % (0-4) H 03/14/18 06:35 Basophils % (Manual) 1 % (0-2) 03/14/18 06:35 Platelet Estimate Normal (NORMAL) 03/14/18 06:35 Hypochromasia (manual) Slight 03/14/18 06:35 Poikilocytosis (manual Slight 03/14/18 06:35 Anisocytosis (manual) Slight 03/14/18 06:35 Ovalocytes Slight 03/14/18 06:35 PT 14.4 SECONDS (9.7-12.2) H 03/13/18 14:47 INR 1.3 03/13/18 14:47 APTT 34 SECONDS (21-34) 03/13/18 14:47 D-Dimer, Quantitative < 200 ng/mlDDU (0-243) 03/13/18 14:47 Sodium 137 mmol/L (132-148) 03/14/18 06:35 Potassium 3.6 mmol/L (3.6-5.2) 03/14/18 06:35 Chloride 98 mmol/L (98-107) 03/14/18 06:35 Carbon Dioxide 31 mmol/L (22-30) H 03/14/18 06:35 Anion Gap 11 (10-20) 03/14/18 06:35 BUN 29 mg/dL (7-17) H 03/14/18 06:35 Creatinine 1.2 mg/dL (0.7-1.2) 03/14/18 06:35 Est GFR ( Amer) 52 03/14/18 06:35 Est GFR (Non-Af Amer) 43 03/14/18 06:35 Random Glucose 100 mg/dL (65-105) 03/14/18 06:35 Calcium 8.6 mg/dl (8.6-10.4) 03/14/18 06:35 Phosphorus 4.2 mg/dL (2.5-4.5) 03/14/18 06:35 Magnesium 2.1 mg/dL (1.6-2.3) 03/14/18 06:35 Total Bilirubin 1.4 mg/dL (0.2-1.3) H 03/14/18 06:35 AST 37 U/L (14-36) H 03/14/18 06:35 ALT 35 U/L (9-52) 03/14/18 06:35 Alkaline Phosphatase 81 U/L (38-126) 03/14/18 06:35 Total Creatine Kinase 453 U/L (30-135) H 03/14/18 06:35 CK-MB (Mass) 2.20 ng/mL (0.0-3.38) 03/14/18 06:35 Troponin I 0.0360 ng/mL (0.00-0.120) 03/14/18 06:35 NT-Pro-B Natriuret Pep 2890 pg/mL (0-900) H 03/13/18 14:33 Total Protein 6.4 g/dL (6.3-8.3) 03/14/18 06:35 Albumin 3.6 g/dL (3.5-5.0) 03/14/18 06:35 Globulin 2.8 gm/dL (2.2-3.9) 03/14/18 06:35 Albumin/Globulin Ratio 1.3 (1.0-2.1) 03/14/18 06:35 Blood Type O NEGATIVE 03/13/18 14:45 Antibody Screen Negative 03/13/18 14:45 - Hospital Course Hospital Course: Chief complaint: Increasing shortness of breath, fatigue, unable to lie down History present illness: 82-year-old female with history of hypertension, atrial fibrillation, mitral valve repair, status post mitral valve prolapse repair, postoperative pleural effusion and the pulmonary fibrosis, history of sleep apnea using CPAP, history of congestive heart failure, on anticoagulation. Patient came to the office a few weeks ago at that time she started having some weight gain, diuretics was increased. But the patient started having increasing symptoms of shortness of breath. For 4 days she have worsening shortness of breath even at rest. She was not able to do given few steps to go to the bathroom because of increasing shortness of breath. She was not able to lie flat. She is using oxygen as well as BiPAP, after 20 minutes she has to get up from the bed because she is feeling choking sensation with sleeping. Patient denies any fever chills or any other systemic symptoms. No chest pain noted. Patient is also very anxious and sometimes concerned about palpitation, chest tightness. Past medical history: Hypertension, atrial fibrillation, mitral valve repair, congestive heart failure, ablation Surgical history includes small bowel resection surgery, mitral valve repair. Allergies allergic to Demerol and had allergic to Coumadin. Family history noncontributory Social history lifelong nonsmoker, nonalcoholic, she used to work in the chemical factory in the past no history of gas are seen exposure Review of system: Patient is currently complaining of increasing shortness of breath. Unable to lie flat. Exertional dyspnea noted. Recently getting worse with even at rest the shortness of breath noted. No chest pain. Leg swelling noted. Weight gain present. Increasingly anxious. In spite of the oxygen no improvement recently noted On examination: Vital signs reviewed Chest bilateral good air entry. Regular heart sound noted. Nontender abdomen. The patient has some mild expiratory wheezing noted. Pedal edema bilaterally noted. She has a significant weight gain recently Patient's labs reviewed Elevated proBNP Noted. Cardiac enzymes negative Chest x-ray mild vascular congestion noted. Otherwise nonspecific Assessment/condition: 82-year-old female with history of hypertension atrial fibrillation mitral valve repair, congestive heart failure, pleural effusion History of congestive heart failure. Atrial flutter fibrillation. On anticoagulant. Patient came to the emergency room with acute exacerbation of systolic decompensated heart failure likely. We will get echocardiogram. Cardiology evaluation. Patient will continue to receive intravenous diuretics. Daily weight monitoring. Oxygen supplementation. BiPAP. DVT GI prophylaxis and will follow the patient I spoke to the patient's daughter in detail. We will get a cardiology evaluation and will follow the patient Course in the hospital: Patient initially admitted to telemetry with the diagnosis of decompensated systolic heart failure. Patient was given Lasix, placed on BiPAP. Patient started showing significant improvement in the symptoms. But she was having significant JVD elevation. Patient underwent significant enlargement of the right atrium and right ventricle with some compression over the left ventricular region. Severe pulmonary hypertension associated with the severe tricuspid regurgitation. I spoke to the patient's family in details about the overall condition. Assessment: Patient is a 82-year-old female admitted to the hospital with possible decompensated heart failure. Most likely right-sided heart failure associate with a severe pulmonary hypertension and possible desaturation. In my opinion patient will benefit with BiPAP in the house Also patient will need to continue the oxygen. I recommended to follow-up with the heart failure clinic. Possible pulmonary hypertension clinic. Her primary treatment should include continuous oxygen treatment BiPAP as needed to reduce the afterload and preload Patient may also benefit taking medications for primary pulmonary hypertension, I suggested to follow-up as an outpatient at [facility]. I discussed with the cardiology patient will follow up with cardiology and will follow the patient Patient's medications reviewed She will continue the medications. Currently she is also on anticoagulation. We will follow the patient Discharge Plan - Follow Up Plan Condition: FAIR Disposition: HOME/ ROUTINE Instructions: Heart Healthy Diet, Heart Failure, Adult (DC), Shortness of Breath (Dyspnea) (DC) Additional Instructions: Please follow up with Dr. Cruz office in 1 week Please continue CPAP at home ,New setting H20 10 resume all home medications Referrals: Bambi Cruz MD [Staff Provider] -
--- NOTE | 2018-03-15 20:09 | CARD ---
APPROVED REPORT Date of service: 03/14/2018 EXAM: Two-dimensional and M-mode echocardiogram with Doppler and color Doppler. INDICATION Syncope Congestive Heart Failure 2D DIMENSIONS IVSd1.1 (0.7-1.1cm)LVDd4.1 (3.9-5.9cm) PWd0.8 (0.7-1.1cm)LVDs1.9 (2.5-4.0cm) FS (%) 52.8 %LVEF (%)84.2 (>50%) IVC0.00 cm M-Mode DIMENSIONS RVDd3.96 (2.1-3.2cm)Left Atrium (MM)5.47 (2.5-4.0cm) IVSd0.77 (0.7-1.1cm)Aortic Root3.22 (2.2-3.7cm) LVDd4.30 (4.0-5.6cm)Aortic Cusp Exc.2.18 (1.5-2.0cm) PWd0.80 (0.7-1.1cm)FS (%) 47 % LVDs2.26 (2.0-3.8cm)TAPSE16.23 cm LVEF (%)79 (>50%) Aortic Valve AI P 1/2 [id number] Mitral Valve MV E Toweazvq428.0cm/sMV A Reoqnlch53.2cm/sMV [id number] E/A ratio3.1MVA (PHT)1.30cm2 TDI Lateral E' Peak V10.42cm/sMedial E' Peak V5.25cm/sE/Lateral E'15.1 E/Medial E'29.9 Tricuspid Valve TR Peak Tazbejxe326ed/sTR Peak Gr.[id number] LEFT VENTRICLE The left ventricle is normal size. There is normal left ventricular wall thickness. The left ventricular function is normal. The left ventricular ejection fraction is within the normal range. There is a flattened septum consistent with right ventricle volume overload. The left ventricular diastolic function is normal. No left ventricle thrombus noted on this study. There is no ventricular septal defect visualized. There is no left ventricular aneurysm. There is no mass noted in the left ventricle. RIGHT VENTRICLE The right ventricle is mildly to moderately dilated. There is normal right ventricular wall thickness. The right ventricular systolic function is normal. ATRIA The left atrium size is normal. The right atrium is moderately dilated. The interatrial septum is intact with no evidence for an atrial septal defect. AORTIC VALVE The aortic valve is normal in structure and function. There is mild to moderate aortic regurgitation. There is no aortic valvular stenosis. There is no aortic valvular vegetation. MITRAL VALVE The mitral valve is normal in structure and function. Mitral annular calcification is moderate. There is no evidence of mitral valve prolapse. There is no mitral valve stenosis. There is no mitral valve regurgitation noted. TRICUSPID VALVE The tricuspid valve is normal in structure and function. There is moderate to severe tricuspid regurgitation. Right ventricular systolic pressure is estimated at 50-60 mmHg. There is moderate-severe pulmonary hypertension. There is no tricuspid valve prolapse or vegetation. There is no tricuspid valve stenosis. PULMONIC VALVE The pulmonary valve is normal in structure and function. There is moderate pulmonic valvular regurgitation. PA EDP is 20mm of HG There is no pulmonic valvular stenosis. GREAT VESSELS The aortic root is normal in size. The ascending aorta is normal in size. The pulmonary artery is normal. The IVC is dilated. Dilated IVC with poor inspiration collapse is consistent with elevated right atrial pressure. PERICARDIAL EFFUSION The pericardium appears normal. There is no pleural effusion. <Conclusion> The left ventricular function is normal. The left ventricular ejection fraction is within the normal range. The left ventricular diastolic function is normal. The right ventricle is mildly to moderately dilated. The right atrium is moderately dilated. There is mild to moderate aortic regurgitation. There is moderate to severe tricuspid regurgitation. Right ventricular systolic pressure is estimated at 50-60 mmHg. There is moderate-severe pulmonary hypertension. There is moderate pulmonic valvular regurgitation. PA EDP is 20mm of HG The IVC is dilated. Dilated IVC with poor inspiration collapse is consistent with elevated right atrial pressure.
== END 2018-03-15 16:30 | disposition home or self-care (01) ==
LOC: C.ER 13:13 → C.6T 16:32
PROVIDERS: ADMIT Internal Medicine; ATTEND Internal Medicine
DX: I11.0 Hypertensive heart disease with heart failure (principal); I50.33 Acute on chronic diastolic (congestive) heart failure; I27.81 Cor pulmonale (chronic); I48.91 Unspecified atrial fibrillation; I34.1 Nonrheumatic mitral (valve) prolapse; I27.29 Other secondary pulmonary hypertension; G47.33 Obstructive sleep apnea (adult) (pediatric); I48.92 Unspecified atrial flutter; J44.9 Chronic obstructive pulmonary disease, unspecified; J84.10 Pulmonary fibrosis, unspecified; Z79.01 Long term (current) use of anticoagulants; Z90.49 Acquired absence of other specified parts of digestive tract; Z88.5 Allergy status to narcotic agent
CPT/HCPCS: 36415; 71046; 71250; 80053; 83735; 83880; 84100; 84484; 85025; 85378; 85610; 85730; 86850; 86900; 93005; 93306; 94660; 96374; 97116; 97162; 99285; G0378; G8978; G8979; J1940

== ENCOUNTER 2018-05-25 12:02 | Emergency (ER) | payer MEDICARE ==
[2018-05-25 12:03] VITALS: PULSE 69; BMI 25.8
--- NOTE | 2018-05-25 13:15 | C.PDOC ---
History Of Present Illness 82 year old female presents to the ED complaining of hematuria for the last 3 days. She also reports fatigue and SOB on exertion. Patient has a PMHx of pulmonary hypertension, for which she is taking Viagra and recently increased Eliquis dose. She contacted her PMD and was instructed to come to the ED for further evaluation. Otherwise she denies any chest pain, abdominal pain, fever, cough, or other complaints. Time Seen by Provider: 05/25/18 12:30 Chief Complaint (Nursing): Female Genitourinary History Per: Patient History/Exam Limitations: no limitations Onset/Duration Of Symptoms: Days (3) Current Symptoms Are (Timing): Still Present Past Medical History Reviewed: Historical Data, Nursing Documentation, Vital Signs Vital Signs: Last Vital Signs Temp 98.6 F 05/25/18 12:09 Pulse 73 05/25/18 12:09 Resp 20 05/25/18 12:09 BP 118/63 05/25/18 12:09 Pulse Ox 100 05/25/18 12:09 - Medical History PMH: Asthma, Atrial Fibrillation, CHF, COPD, HTN, Mitral Valve Prolapse (MITRAL VALVE REPAIR), Sleep Apnea Denies: Chronic Kidney Disease Other PMH: Pulmonary Hypertension Surgical History: Appendectomy - [facility] Procedures DRAINAGE OF STOMACH WITH DRAINAGE DEVICE, VIA OPENING (04/28/16) RELEASE SMALL INTESTINE, OPEN APPROACH (03/11/15) Family History: States: Unknown Family Hx - Social History Hx Tobacco Use: No Hx Alcohol Use: No Hx Substance Use: No - Immunization History Hx Tetanus Toxoid Vaccination: No Hx Influenza Vaccination: No Hx Pneumococcal Vaccination: Yes Review Of Systems Except As Marked, All Systems Reviewed And Found Negative. Constitutional: Positive for: Weakness (Fatigue). Negative for: Fever, Chills Eyes: Negative for: Vision Change Cardiovascular: Negative for: Chest Pain, Palpitations Respiratory: Positive for: SOB with Excertion. Negative for: Cough Gastrointestinal: Negative for: Abdominal Pain Genitourinary: Positive for: Hematuria Musculoskeletal: Positive for: Other (leg edema, chronic) Skin: Negative for: Rash Neurological: Negative for: Headache, Dizziness Physical Exam - Physical Exam Appears: Non-toxic, No Acute Distress Skin: Warm, Dry, No Rash Head: Atraumatic, Normacephalic Eye(s): bilateral: Normal Inspection Oral Mucosa: Moist Neck: Normal ROM Chest: Symmetrical Cardiovascular: Rhythm Regular, No Murmur Respiratory: Decreased Breath Sounds (at the bases), No Rales (No audible rales), No Wheezing Gastrointestinal/Abdominal: Soft, No Tenderness, No Distention Extremity: Normal ROM, Pedal Edema (mild bilaterally), No Deformity Pulses: Left Dorsalis Pedis: Normal, Right Dorsalis Pedis: Normal Neurological/Psych: Oriented x3, Normal Cranial Nerves, Normal Motor, Normal Sensation ED Course And Treatment - Laboratory Results Result Diagrams: 05/25/18 13:17 05/25/18 13:17 Lab Interpretation: No Changes Compared To Prior Results ECG: Interpreted By Me, Viewed By Me ECG Rhythm: Sinus Rhythm ECG Interpretation: No Acute Changes, Abnormal Rate From EC (PAC, LAD, nonspecific ST-T waves) O2 Sat by Pulse Oximetry: 100 (RA) Pulse Ox Interpretation: Normal - Other Rad Chest Xray X-Ray: Viewed By Me, Read By Radiologist Interpretation: Accession No. : [id number]. Patient Name / ID : HAZEL KIMBALL / [id number]. Exam Date : 05/25/2018 12:43:01 ( Approved ). Study Comment : Sex / Age : F / 82Y. Creator : Rosario Anthony MD. Dictator : Rosario Anthony MD. Concept Artist : [employer]ofinishing Laboratory Worker : Rosario Anthony MD. Approver2 : Report Date : 05/25/2018 13:54:21. My Comment : . Date of service: 05/25/2018. HISTORY: Shortness of breath. COMPARISON: CT chest without contrast from 03/15/2018. TECHNIQUE: Chest PA and lateral. FINDINGS: LINES AND TUBES: None. LUNG AND PLEURA: The lungs are well inflated. There is mild pulmonary venous congestion. Small right pleural effusion. HEART AND MEDIASTINUM: There is moderate cardiomegaly. A linear metallic device overlies the left infrahilar region. There are aortic atherosclerotic calcifications present. The hilar and mediastinal contours are within normal limits. SKELETAL STRUCTURES: The bony structures are within normal limits for the patient's age. VISUALIZED UPPER ABDOMEN: Normal. OTHER FINDINGS: None. IMPRESSION: No active pulmonary disease. Moderate cardiomegaly and mild pulmonary venous congestion. - CT Scan/US CT A&P Other Rad Studies (CT/US): Read By Radiologist, Radiology Report Reviewed CT/US Interpretation: IMPRESSION: 1. No CT evidence for nephrolithiasis, hydronephrosis or obstructive uropathy. Nonspecific perinephric fat stranding and mesenteric fat stranding. 2. The urinary bladder is partially decompressed. 3. Enlarged fibroid uterus with a large calcified posterior wall fibroid on the right. 4. Stable simple hepatic cysts. 5. Small sliding hiatal hernia. Small infraumbilical midline ventral hernia containing nonobstructed small bowel loops. Medical Decision Making Medical Decision Making: Impression: Hematuria, Dyspnea on exertion Initial Plan: - EKG - Blood work - Urinalysis - Chest x-ray Progress: Labs reviewed no acute change from prior visits. Normal H/H, INR, glucose. UA shows blood RBCs negative for nitrates. [address] Cruz to discuss case. Recommends CT abdomen. States if unremarkable to discharge and if any acute findings to call back and possible admit. CT reviewed and radiology report reviewed. Patient remained well in no distress. she denied any pain to abdomen extremities, states just feeling cold and tired. I discussed results with patient and son at bedside as well as provided copy of reports. They understand and feel comfortable with discharge. Instruct them to follow up with PCP. Disposition Counseled Patient/Family Regarding: Studies Performed, Diagnosis, Need For Followup - Disposition Referrals: Bambi Cruz MD [Staff Provider] - Disposition: HOME/ ROUTINE Disposition Time: 15:56 Condition: STABLE Additional Instructions: Please continue with your usual medications and follow up with your doctor in his office Return to the hospital if you develop any chest pain, shortness of breath or other concern Instructions: Blood in the Urine (Hematuria) in Adults Forms: [employer] (Urdu) - Clinical Impression Clinical Impression: Congestive heart failure, Hematuria - PA / REGISTERED DENTAL HYGIENIST / Resident Statement MD/DO has reviewed & agrees with the documentation as recorded. - Scribe Statement The provider has reviewed the documentation as recorded by the Jessie Osborne All medical record entries made by the Destineeibraciel were at my direction and personally dictated by me. I have reviewed the chart and agree that the record accurately reflects my personal performance of the history, physical exam, m edical decision making, and the department course for this patient. I have also personally directed, reviewed, and agree with the discharge instructions and disposition.
[2018-05-25 13:29] LABS: LYMPH # 0.3 K/uL (1.0-4.3); MONO # 0.8 K/uL (0.0-0.8)
[2018-05-25 13:36] LABS: BASO # 0.1 K/uL (0.0-0.2); HEMOGLOBIN 11.1 g/dL (11.0-16.0)
[2018-05-25 13:37] LABS: INR 1.8; PROTHROMBIN TIME 19.3 SECONDS (9.7-12.2)
[2018-05-25 13:38] LABS: SQUAMOUS EPITHIAL 5 /hpf (0-5); URINE BACTERIA MOD (<OCC); URINE BILIRUBIN NEGATIVE (NEGATIVE); URINE BLOOD 3+ (NEGATIVE); URINE CLARITY Hazy (Clear); URINE COLOR Amber (YELLOW); URINE GLUCOSE (UA) NORMAL (Normal); URINE LEUKOCYTE ESTERASE 2+ Leu/uL (Negative); URINE PROTEIN 2+ mg/dL (NEGATIVE); URINE UROBILINOGEN NORMAL mg/dL (0.2-1.0); WBC CLUMPS MANY /hpf
[2018-05-25 13:41] LABS: BASO % 1.3 % (0.0-2.0); EOS # 0.4 K/uL (0.0-0.7); LYMPH % 2.9 % (20.0-40.0); MEAN CORPUSCULAR HEMOGLOBIN 28.4 pg (27.0-31.0); MEAN CORPUSCULAR HGB CONC 31.9 g/dL (33.0-37.0); MEAN PLATELET VOLUME 9.7 fL (7.2-11.7); MONO % 7.6 % (0.0-10.0); NEUT # 8.3 K/uL (1.8-7.0); NEUT % 84.2 % (50.0-75.0); NRBC % 0.3 % (0.0-2.0); PLATELET COUNT 129 K/uL (130-400); RBC 3.92 Mil/uL (3.80-5.20); RED CELL DISTRIBUTION WIDTH 17.3 % (11.5-14.5); WHITE BLOOD COUNT 9.9 K/uL (4.8-10.8)
[2018-05-25 13:44] LABS: ALB/GLOB RATIO 1.3 (1.0-2.1); ALBUMIN 4.1 g/dL (3.5-5.0); CALCIUM 8.9 mg/dl (8.6-10.4)
--- NOTE | 2018-05-25 13:58 | RAD ---
Date of service: 05/25/2018 HISTORY: Shortness of breath COMPARISON: CT chest without contrast from 03/15/2018 TECHNIQUE: Chest PA and lateral FINDINGS: LINES AND TUBES: None. LUNG AND PLEURA: The lungs are well inflated. There is mild pulmonary venous congestion. Small right pleural effusion HEART AND MEDIASTINUM: There is moderate cardiomegaly. A linear metallic device overlies the left infrahilar region. There are aortic atherosclerotic calcifications present. The hilar and mediastinal contours are within normal limits. SKELETAL STRUCTURES: The bony structures are within normal limits for the patient's age. VISUALIZED UPPER ABDOMEN: Normal. OTHER FINDINGS: None. IMPRESSION: No active pulmonary disease. Moderate cardiomegaly and mild pulmonary venous congestion.
[2018-05-25 13:59] LABS: BANDS 2 % (0-2); EOSINOPHIL 4 % (0-4); LYMPHOCYTE 2 % (20-40); MONOCYTE 7 % (0-10); NEUTROPHIL 85 % (50-75); PLATELET ESTIMATE SLIGHTLY DECREASED (NORMAL); TOTAL CELLS COUNTED 100
[2018-05-25 14:00] LABS: ANISOCYTOSIS SLIGHT
[2018-05-25 14:01] LABS: OVALOCYTES SLIGHT
--- NOTE | 2018-05-25 15:37 | CT ---
Date of service: PROCEDURE: CT Abdomen and Pelvis without intravenous contrast HISTORY: Hematuria COMPARISON: 05/02/2016. TECHNIQUE: CT scan of the abdomen and pelvis was performed without administration of intravenous contrast. Oral contrast was not administered. Coronal and sagittal reformatted images were obtained. Radiation dose: Total exam DLP = 343.02 mGy-cm. This CT exam was performed using one or more of the following dose reduction techniques: Automated exposure control, adjustment of the mA and/or kV according to patient size, and/or use of iterative reconstruction technique. FINDINGS: LOWER THORAX: There is subsegmental atelectasis in the lateral right middle lobe and right lower lobe. The visualized left lung is clear. There is mild cardiomegaly. LIVER: Normal in size. There are stable simple cysts in the liver, the largest in the right hepatic lobe measures 2.5 x 2.3 cm. No intrahepatic biliary ductal dilatation. GALLBLADDER AND BILE DUCTS: Well distended. No calcified gallstones. No common bile duct dilatation. PANCREAS: Normal in size. No gross lesion or ductal dilatation. SPLEEN: Normal in size. ADRENALS: Normal in size. No discrete nodule. KIDNEYS AND URETERS: Both kidneys are normal in size. No hydronephrosis or nephrolithiasis. There is nonspecific perinephric fat stranding. This VASCULATURE: Normal in caliber. No aortic aneurysm. There are aortic atherosclerotic calcifications present. BOWEL: Evaluation of the bowel is limited in the absence of oral contrast. The small bowel loops are normal in caliber. There is moderate amount of stool scattered throughout the colon. No bowel dilatation or obstruction APPENDIX: Normal appendix. PERITONEUM: No free fluid. No free air. There is nonspecific mesenteric fat stranding. LYMPH NODES: No enlarged lymph nodes. BLADDER: Partially decompressed. REPRODUCTIVE: There is redemonstration of an enlarged fibroid uterus with calcified fibroids, the largest in calcified posterior wall fibroid on the right. BONES: No acute fracture. Diffuse bone demineralization and advanced multilevel degenerative disc disease. OTHER FINDINGS: There is a small sliding hiatal hernia. There is an infrarenal midline ventral hernia containing nonobstructed small bowel loops. There is severe diffuse anasarca IMPRESSION: 1. No CT evidence for nephrolithiasis, hydronephrosis or obstructive uropathy. Nonspecific perinephric fat stranding and mesenteric fat stranding. 2. The urinary bladder is partially decompressed. 3. Enlarged fibroid uterus with a large calcified posterior wall fibroid on the right. 4. Stable simple hepatic cysts. 5. Small sliding hiatal hernia. Small infraumbilical midline ventral hernia containing nonobstructed small bowel loops.
[2018-05-25 16:26] VITALS: BP 135/76; PULSE 75; RESP 18; TEMP 98
[2018-05-25 17:15] VITALS: O2SAT 100
--- NOTE | 2018-05-28 12:47 | CARD ---
APPROVED REPORT Date of service: 05/25/2018 EKG Measurement Heart [id number] <Conclusion> Sinus rhythm with premature atrial complexes Left axis deviation Pulmonary disease pattern Nonspecific ST and T wave abnormality Abnormal ECG
== END 2018-05-25 16:27 | disposition home or self-care (01) ==
LOC: C.ER 12:02
DX: I50.9 Heart failure, unspecified (principal); R31.9 Hematuria, unspecified; I48.91 Unspecified atrial fibrillation; J44.9 Chronic obstructive pulmonary disease, unspecified; I10 Essential (primary) hypertension

== ENCOUNTER 2018-05-28 10:36 | Inpatient (IN) | payer MEDICARE ==
[2018-05-28 10:36] VITALS: BMI 25.8
--- NOTE | 2018-05-28 11:41 | C.PDOC ---
History Of Present Illness 82 year old female, whose past medical history includes anxiety, pulmonary arterial hypertension, and CHF, presents to the ED after being sent by her PMD for evaluation of hematuria which began around 5 days ago. Patient was evaluated in the ED 3 days [address] and underwent [address] and bloodwork which were unremarkable. Her PMD, Dr. Cruz, changed her prescription of Eliquis from 5mg BID to half tablet BID. Patient states her bleeding continued, and she was advised by Dr. Cruz to discontinue Eliquis completely. She stopped taking Eliquis three days ago, but her bleeding continues, prompting this ED visit. Of note, patient states she started taking Sildenafil ten days ago. She denies fever, chills, and vaginal bleeding at this time. Time Seen by Provider: 05/28/18 10:58 Chief Complaint (Nursing): Female Genitourinary History Per: Patient History/Exam Limitations: no limitations Onset/Duration Of Symptoms: Days (5) Current Symptoms Are (Timing): Still Present Past Medical History Reviewed: Historical Data, Nursing Documentation, Vital Signs Vital Signs: Last Vital Signs Temp 98.4 F 05/28/18 10:51 Pulse 71 05/28/18 10:51 Resp 17 05/28/18 10:51 BP 189/65 H 05/28/18 10:51 Pulse Ox 97 05/28/18 10:51 - Medical History PMH: Asthma, Atrial Fibrillation, CHF, COPD, HTN, Mitral Valve Prolapse (MITRAL VALVE REPAIR), Sleep Apnea Denies: Chronic Kidney Disease Surgical History: Appendectomy - [facility] Procedures DRAINAGE OF STOMACH WITH DRAINAGE DEVICE, VIA OPENING (04/28/16) RELEASE SMALL INTESTINE, OPEN APPROACH (03/11/15) Family History: States: Unknown Family Hx - Social History Hx Tobacco Use: No Hx Alcohol Use: No Hx Substance Use: No - Immunization History Hx Tetanus Toxoid Vaccination: No Hx Influenza Vaccination: No Hx Pneumococcal Vaccination: Yes Review Of Systems Constitutional: Negative for: Fever, Chills Gastrointestinal: Negative for: Abdominal Pain Genitourinary: Positive for: Hematuria. Negative for: Vaginal Discharge, Vaginal Bleeding Physical Exam - Physical Exam Appears: Non-toxic, No Acute Distress Skin: Normal Color, Warm, Dry, Ecchymosis (to left lateral hand and left forearm ) Head: Atraumatic, Normacephalic Eye(s): bilateral: Normal Inspection Oral Mucosa: Moist Neck: Supple Chest: Symmetrical, No Deformity, No Tenderness Cardiovascular: Rhythm Regular, No Murmur Respiratory: No Rales, No Rhonchi, Wheezing (inspiratory, bilaterally ) Gastrointestinal/Abdominal: Soft, No Tenderness, No Guarding, No Rebound Extremity: Normal ROM, Capillary Refill (less than 2 seconds ), Other (pitting edema bilaterally, left>right) Pulses: Left Dorsalis Pedis: Normal, Right Dorsalis Pedis: Normal Neurological/Psych: Oriented x3, Normal Speech, Normal Cognition ED Course And Treatment - Laboratory Results Result Diagrams: 05/28/18 11:52 05/28/18 11:52 O2 Sat by Pulse Oximetry: 97 Medical Decision Making Medical Decision Making: Assessment: hematuria Plan: * bloodwork * urinalysis * CXR * reassess and disposition Progress: Bloodwork, urinalysis and CXR ordered and reviewed. Disposition Discussed With : Bambi Cruz Doctor Will See Patient In The: Hospital Counseled Patient/Family Regarding: Studies Performed, Diagnosis - Disposition Disposition: HOSPITALIZED Disposition Time: 12:36 Condition: FAIR Forms: [employer] (Bolivian) - Clinical Impression Clinical Impression: CHF (congestive heart failure), Hematuria - Scribe Statement The provider has reviewed the documentation as recorded by the Scribe (Hui Gallego) Provider Attestation: All medical record entries made by the Scribe were at my direction and personally dictated by me. I have reviewed the chart and agree that the record accurately reflects my personal performance of the history, physical exam, medical decision making, and the department course for this patient. I have also personally directed, reviewed, and agree with the discharge instructions and disposition.
[2018-05-28 12:08] LABS: INR 1.4; PROTHROMBIN TIME 15.8 SECONDS (9.7-12.2)
[2018-05-28 12:09] LABS: BASO # 0.1 K/uL (0.0-0.2); BASO % 0.8 % (0.0-2.0); EOS # 0.3 K/uL (0.0-0.7); EOS % 4.4 % (0.0-4.0); HEMOGLOBIN 10.5 g/dL (11.0-16.0); LYMPH # 0.4 K/uL (1.0-4.3); LYMPH % 4.7 % (20.0-40.0); MEAN CELL VOLUME 88.5 fL (81.0-99.0); MEAN CORPUSCULAR HEMOGLOBIN 28.8 pg (27.0-31.0); MEAN CORPUSCULAR HGB CONC 32.6 g/dL (33.0-37.0); MEAN PLATELET VOLUME 9.8 fL (7.2-11.7); MONO # 0.8 K/uL (0.0-0.8); MONO % 9.8 % (0.0-10.0); NEUT # 6.3 K/uL (1.8-7.0); NEUT % 80.3 % (50.0-75.0); NRBC % 0.1 % (0.0-2.0); RBC 3.64 Mil/uL (3.80-5.20); RED CELL DISTRIBUTION WIDTH 17.2 % (11.5-14.5); WHITE BLOOD COUNT 7.8 K/uL (4.8-10.8)
[2018-05-28 12:14] LABS: PLATELET COUNT 102 K/uL (130-400)
--- NOTE | 2018-05-28 12:14 | RAD ---
HISTORY: sob COMPARISON: Chest x-ray performed 05/25/18 TECHNIQUE: Chest, one view. FINDINGS: LUNGS: Mild to moderate pulmonary venous congestion. Small right greater than left pleural effusions. Biapical pleural thickening. No definite pneumothorax. Please note that chest x-ray has limited sensitivity for the detection of pulmonary masses. CARDIOVASCULAR: Cardiomegaly. Dense atherosclerotic calcifications of the aorta. OSSEOUS STRUCTURES: Degenerative changes. Osseous demineralization. Acromioclavicular arthropathy. High-riding humeral heads may be seen in the setting of chronic rotator cuff injury. VISUALIZED UPPER ABDOMEN: Unremarkable. OTHER FINDINGS: None. IMPRESSION: Mild to moderate pulmonary venous congestion. Small right greater than left pleural effusions. Biapical pleural thickening. Cardiomegaly. Dense atherosclerotic calcifications of the aorta.
[2018-05-28 12:20] LABS: ALB/GLOB RATIO 1.3 (1.0-2.1); ALBUMIN 3.8 g/dL (3.5-5.0); CALCIUM 8.7 mg/dl (8.6-10.4)
[2018-05-28 12:28] LABS: TROPONIN I 0.025 ng/mL (0.00-0.120)
[2018-05-28 12:40] LABS: SQUAMOUS EPITHIAL 3 /hpf (0-5); URINE BACTERIA MANY (<OCC); URINE BILIRUBIN NEGATIVE (NEGATIVE); URINE BLOOD 3+ (NEGATIVE); URINE CLARITY Hazy (Clear); URINE COLOR Red (YELLOW); URINE GLUCOSE (UA) NORMAL (Normal); URINE LEUKOCYTE ESTERASE 1+ Leu/uL (Negative); URINE PROTEIN 2+ mg/dL (NEGATIVE); URINE UROBILINOGEN NORMAL mg/dL (0.2-1.0); WBC CLUMPS RARE /hpf
[2018-05-28 12:56] LABS: BANDS 1 % (0-2); EOSINOPHIL 4 % (0-4); LYMPHOCYTE 4 % (20-40); MONOCYTE 10 % (0-10); NEUTROPHIL 81 % (50-75); PLATELET ESTIMATE SLIGHTLY DECREASED (NORMAL); TOTAL CELLS COUNTED 100
[2018-05-28 12:57] LABS: ANISOCYTOSIS SLIGHT; LARGE PLATELETS PRESENT; OVALOCYTES SLIGHT
--- NOTE | 2018-05-28 13:28 | CP.PCM.HP ---
History of Present Illness - History of Present Illness History of Present Illness: Chief complaint: Patient is not feeling well, blood in the urine. History present illness: 82-year-old female with history of hypertension, atrial fibrillation, mitral valve repair, status post mitral valve prolapse repair, postoperative pleural effusion and the pulmonary fibrosis, history of sleep apnea using CPAP, history of congestive heart failure, on anticoagulation. Patient was seen recently started having worsening shortness of breath. Severe pulmonary hypertension was noted I discussed with the carpenters supervisor and sildenafil citrate was started on the patient a week ago. But after starting the medication she started noticing discoloration of the urine. Patient started having some burning sensation of the urine associated with blood in the urine. Patient is taking Eliquis 5 mg twice daily, which I advised the family to stop it for a few days. And monitor the urine analysis. Patient came to the ER 3 days ago at that time patient continues to have a symptoms of blood in the urine At that time patient had a urinary analysis, and also CAT scan which was negative. Patient did not stay at the time she went home. She felt okay yesterday, but this morning she started having again blood with the sediments in the urine and the patient is concerned about that. She was also not feeling well, weakness tiredness easy fatigability noted. She denies any fever she denies any chills but poor appetite poor intake noted. Patient denies any chest pain now. She has increasingly anxiety, not able to sleep well, and restlessness noted at times. Past medical history: Hypertension, atrial fibrillation, mitral valve repair, congestive heart failure, ablation Surgical history includes small bowel resection surgery, mitral valve repair. Allergies allergic to Demerol and had allergic to Coumadin. Family history noncontributory Social history lifelong nonsmoker, nonalcoholic, she used to work in the chemical factory in the past no history of gas or fumes exposure Review of system: Patient recently having increasing weight gain. Poor appetite noted. She is not sleeping well. She has no headache at this time. Denies any vomiting, but nausea noted. Complaining of abdominal discomfort and pain noted especially in the suprapubic area. Blood in the urine noted for at least 3 days now. In spite of stopping the Eliquis patient still continues to have the bleeding. On examination: Vital signs reviewed Chest bilateral good air entry. Regular heart sound noted. Diffuse abdominal tenderness noted The patient has some mild expiratory wheezing noted. Pedal edema bilaterally noted. She has a significant weight gain recently Patient's labs reviewed Chest x-ray mild CHF pattern noted. CBC and CMP is nonspecific. Elevated WBC, elevated RBCs noted in the urine. Vital signs otherwise stable. Patient had a CT scan of the abdomen and pelvis 3 days ago which was negative. But at that time there was no urine culture was done. Previous echocardiogram showing evidence of normal LV function, severe pulmonary hypertension. Recently started on sildenafil citrate, after that she is feeling somewhat better with the lungs, breathing better Assessment/condition: 82-year-old female with history of hypertension atrial fibrillation mitral valve repair, congestive heart failure, pleural effusion History of congestive heart failure. Atrial flutter fibrillation. Admitted to the hospital with acute hematuria, underlying urinary tract infection possible. We will start the patient on antibiotic ciprofloxacin 200 mg twice daily. urological evaluation. Sonogram of the abdomen ordered today. We will hold off anticoagulation, I explained to the family about the risk of holding the anticoagulation suggest stroke. We will continue the diuretics. BiPAP at night. Closely monitor the patient. Admitted to the telemetry at this time. Patient may need cystoscopy to evaluate the hematuria if needed, will discuss with the urologist. And will follow the patient Cardiology evaluation may be needed Present on Admission - Present on Admission Any Indicators Present on Admission: No History of DVT/PE: No History of Uncontrolled Diabetes: No Urinary Catheter: No Decubitus Ulcer Present: No Past Patient History - Infectious Disease Hx of Infectious Diseases: None - Past Medical History & Family History Past Medical History?: Yes - Past Social History Smoking Status: Never Smoked - CARDIAC Hx Atrial Fibrillation: Yes Hx Congestive Heart Failure: Yes Hx Hypertension: Yes Hx Mitral Valve Prolapse: Yes (MITRAL VALVE REPAIR) - PULMONARY Hx Asthma: Yes Hx Chronic Obstructive Pulmonary Disease (COPD): Yes Hx Sleep Apnea: Yes - NEUROLOGICAL Hx Neurological Disorder: Yes Hx Vertigo: Yes - HEENT Hx HEENT Problems: Yes Hx Cataracts: Yes - RENAL Hx Chronic Kidney Disease: No - ENDOCRINE/METABOLIC Hx Endocrine Disorders: No - HEMATOLOGICAL/ONCOLOGICAL Hx Blood Disorders: No - INTEGUMENTARY Hx Dermatological Problems: No - MUSCULOSKELETAL/RHEUMATOLOGICAL Hx Musculoskeletal Disorders: No - GASTROINTESTINAL Hx Gastrointestinal Disorders: No Other/Comment: H/O INTESTINAL OBSTRUX X 3 - GENITOURINARY/GYNECOLOGICAL Hx Genitourinary Disorders: Yes Hx Incontinence: Yes - PSYCHIATRIC Hx Substance Use: No - SURGICAL HISTORY Hx Appendectomy: Yes - ANESTHESIA Hx Anesthesia: Yes Hx Anesthesia Reactions: No Hx Malignant Hyperthermia: No Meds Allergies/Adverse Reactions: Allergies Allergy/AdvReac Type Severity Reaction Status Date / Time meperidine HCl [From Demerol] Allergy Severe ANAPHYLAXIS Verified 05/28/18 10:55 Penicillins Allergy Intermediate SWELLING Verified 05/28/18 10:55 Results - Vital Signs Recent Vital Signs: Last Vital Signs Temp 98.6 F 05/28/18 13:19 Pulse 64 05/28/18 13:19 Resp 18 05/28/18 13:19 BP 126/67 05/28/18 13:19 Pulse Ox 100 05/28/18 13:19 - Labs Result Diagrams: 05/28/18 11:52 05/28/18 11:52 Labs: Laboratory Results - last 24 hr 05/28/18 05/28/18 05/28/18 11:52 11:52 11:52 WBC 7.8 RBC 3.64 L Hgb 10.5 L Hct 32.3 L MCV 88.5 MCH 28.8 MCHC 32.6 L RDW 17.2 H Plt Count 102 L D MPV 9.8 Neut % (Auto) 80.3 H Lymph % (Auto) 4.7 L [place] % (Auto) 9.8 Eos % (Auto) 4.4 H Baso % (Auto) 0.8 Neut # (Auto) 6.3 Lymph # (Auto) 0.4 L [place] # (Auto) 0.8 Eos # (Auto) 0.3 Baso # (Auto) 0.1 Neutrophils % (Manual) 81 H Band Neutrophils % 1 Lymphocytes % (Manual) 4 L Monocytes % (Manual) 10 Eosinophils % (Manual) 4 Platelet Estimate Slightly decreased L Large Platelets Present Anisocytosis (manual) Slight Ovalocytes Slight PT 15.8 H INR 1.4 APTT 33 D Sodium 132 Potassium 3.7 Chloride 95 L Carbon Dioxide 27 Anion Gap 14 BUN 32 H Creatinine 1.1 Est GFR ( Amer) 58 Est GFR (Non-Af Amer) 48 Random Glucose 104 Calcium 8.7 Total Bilirubin 2.0 H AST 33 ALT 21 Alkaline Phosphatase 120 Troponin I 0.0250 NT-Pro-B Natriuret Pep 4430 H Total Protein 6.8 Albumin 3.8 Globulin 3.0 Albumin/Globulin Ratio 1.3 Urine Color Urine Clarity Urine pH Ur Specific [place] Urine Protein Urine Glucose (UA) Urine Ketones Urine Blood Urine Nitrate Urine Bilirubin Urine Urobilinogen Ur Leukocyte Esterase Urine WBC (Auto) Urine RBC (Auto) Urine WBC Clumps (Auto) Ur Squamous Epith Cells Urine Bacteria Digoxin 05/28/18 05/28/18 11:52 12:00 WBC RBC Hgb Hct MCV MCH MCHC RDW Plt Count MPV Neut % (Auto) Lymph % (Auto) [place] % (Auto) Eos % (Auto) Baso % (Auto) Neut # (Auto) Lymph # (Auto) [place] # (Auto) Eos # (Auto) Baso # (Auto) Neutrophils % (Manual) Band Neutrophils % Lymphocytes % (Manual) Monocytes % (Manual) Eosinophils % (Manual) Platelet Estimate Large Platelets Anisocytosis (manual) Ovalocytes PT INR APTT Sodium Potassium Chloride Carbon Dioxide Anion Gap BUN Creatinine Est GFR ( Amer) Est GFR (Non-Af Amer) Random Glucose Calcium Total Bilirubin AST ALT Alkaline Phosphatase Troponin I NT-Pro-B Natriuret Pep Total Protein Albumin Globulin Albumin/Globulin Ratio Urine Color Red Urine Clarity Hazy Urine pH 6.0 Ur Specific [place] 1.015 Urine Protein 2+ H Urine Glucose (UA) Normal Urine Ketones Negative Urine Blood 3+ H Urine Nitrate Negative Urine Bilirubin Negative Urine Urobilinogen Normal Ur Leukocyte Esterase 1+ H Urine WBC (Auto) 35 H Urine RBC (Auto) 4653 H Urine WBC Clumps (Auto) Rare H Ur Squamous Epith Cells 3 Urine Bacteria Many H Digoxin < 0.4 L
[2018-05-28] MEDS: Albuterol-Ipratrop 3 mg / 0.5 (3 ml) UD INH SCH ×2 (13:45→19:37)
--- NOTE | 2018-05-28 14:46 | US ---
HISTORY: hematuria COMPARISON: CT abdomen and pelvis without contrast performed 05/25/18 TECHNIQUE: Sonographic evaluation of the abdomen. FINDINGS: LIVER: Measures 17.3 cm in sagittal dimension. Echogenic liver may be seen in setting of hepatic parenchymal disease or fatty infiltration. 2.3 x 1.5 x 1.7 cm left hepatic lobe and 2.9 x 6.1 x 2.7 cm right hepatic lobe anechoic avascular masses consistent with cysts. The main portal vein appears patent with normal directional flow. No intrahepatic bile duct dilatation. Small perihepatic fluid. GALLBLADDER: No gallstones. No gallbladder wall thickening. Negative sonographic Narayan's sign as assessed by the shampoo technician. COMMON BILE DUCT: Measures 3 mm. PANCREAS: Not well visualized. RIGHT KIDNEY: Measures 10.7 x 5.4 x 5.1cm. Cortical thinning. No obstructing calculus or hydronephrosis identified. LEFT KIDNEY: Measures 12.5 x 5.7 x 6.2cm. Cortical thinning. No obstructing calculus or hydronephrosis identified. SPLEEN: Measures approximately 14.4 cm. AORTA: Limited views appear unremarkable. IVC: Limited views appear unremarkable. OTHER FINDINGS: Incidental note is made of right pleural effusion IMPRESSION: Echogenic liver may be seen in setting of hepatic parenchymal disease or fatty infiltration. Hepatic cysts. Bilateral renal cortical thinning. Small perihepatic fluid. Right pleural effusion.
[2018-05-28] MEDS: Saccharomyces Boulardi 250 mg Cap PO SCH ×2 (14:56→18:04)
[2018-05-28] MEDS: Ciprofloxacin 200mg/100ml D5W 100 ML IVPB SCH (14:59)
[2018-05-29] MEDS: Ciprofloxacin 200mg/100ml D5W 100 ML IVPB SCH ×2 (01:11→13:26)
[2018-05-29] MEDS: Albuterol-Ipratrop 3 mg / 0.5 (3 ml) UD INH SCH ×4 (01:43→19:50)
[2018-05-29 07:34] LABS: BASO % 0.5 % (0.0-2.0); EOS # 0.2 K/uL (0.0-0.7); HEMOGLOBIN 10.4 g/dL (11.0-16.0); LYMPH # 0.3 K/uL (1.0-4.3); LYMPH % 3.7 % (20.0-40.0); MEAN CELL VOLUME 88.6 fL (81.0-99.0); MEAN CORPUSCULAR HGB CONC 32.7 g/dL (33.0-37.0); MEAN PLATELET VOLUME 9.7 fL (7.2-11.7); MONO % 12.3 % (0.0-10.0); NEUT # 6.6 K/uL (1.8-7.0); NEUT % 80.5 % (50.0-75.0); PLATELET COUNT 106 K/uL (130-400); RBC 3.58 Mil/uL (3.80-5.20); RED CELL DISTRIBUTION WIDTH 17.5 % (11.5-14.5); WHITE BLOOD COUNT 8.2 K/uL (4.8-10.8)
[2018-05-29 07:58] LABS: ALB/GLOB RATIO 1.1 (1.0-2.1); ALBUMIN 3.7 g/dL (3.5-5.0); CALCIUM 8.7 mg/dl (8.6-10.4)
--- NOTE | 2018-05-29 08:00 | CP.PCM.PN ---
Subjective - Date & Time of Evaluation Date of Evaluation: 05/29/18 Time of Evaluation: 07:57 - Subjective Subjective: Patient last night unable to sleep well. She was feeling choking sensation. In spite of BiPAP she was not able to sleep well. She was very anxious me This morning she is sitting up, but she is having significant pulsation in the neck noted. No pedal edema present. Patient is also having mildly tachypneic at this time. On examination: Vital signs otherwise stable. Oxygen saturation is 96%. Chest good air entry minimal rales in the left lower lung noted. Nontender abdomen. No pedal edema Yesterday's labs reviewed Assessment and recommendation: 82-year-old female with a history of hypertension sleep apnea pulmonary hypertension mitral valve ring. Ablation for A. fib. On anticoagulation. Currently having worsening heart failure, mostly on the right side. I will start the patient back on sildenafil citrate 20 mg twice daily for now. Patient has a hematuria, still having bleeding. Anticoagulation is on hold at this time. Urological evaluation. May need a cystoscopic evaluation. Yesterday sonogram is negative. Urine culture pending. On Cipro we will continue the current treatment and will follow the patient. Objective - Vital Signs/Intake and Output Vital Signs (last 24 hours): Temp Pulse Resp BP Pulse Ox 98.4 F 67 18 126/75 98 05/29/18 07:43 05/29/18 07:43 05/29/18 07:43 05/29/18 07:43 05/29/18 07:43 Intake and Output: 05/29/18 05/29/18 06:59 18:59 Intake Total 300 Balance 300 - Medications Medications: Current Medications Albuterol/Ipratropium (Duoneb 3 Mg/0.5 Mg (3 Ml) Ud) 3 ml INH RQ6 [facility] Last Admin: 05/29/18 01:43 Dose: 3 ml Alprazolam (Xanax) 0.25 mg PO TID PRN PRN Reason: Anxiety Stop: 06/04/18 13:39 Last Admin: 05/29/18 01:12 Dose: 0.25 mg Digoxin (Digoxin) 0.125 mg PO DAILY [facility] Famotidine (Pepcid) 20 mg PO DAILY [facility] Furosemide (Lasix) 40 mg IVP DAILY [facility] Home Med (Sildenafil Citrate [Revatio]) 20 mg PO BID [facility] Ciprofloxacin (Cipro 200mg/100ml D5w) 100 mls @ 67 mls/hr IVPB Q12H [facility]; Protocol Last Admin: 05/29/18 01:11 Dose: 67 mls/hr Influenza Virus Vaccine (Flucelvax Quad 4067-9917 Syr) 60 mcg IM .ONCE ONE Stop: 06/01/18 14:01 Metoprolol Succinate (Toprol Xl) 25 mg PO DAILY [facility] Saccharomyces Boulardii (Florastor) 250 mg PO TID [facility] Last Admin: 05/28/18 18:04 Dose: 250 mg - Labs Labs: 05/29/18 07:19 05/28/18 11:52 PT 15.8 SECONDS (9.7-12.2) H 05/28/18 11:52 INR 1.4 05/28/18 11:52 APTT 33 SECONDS (21-34) D 05/28/18 11:52
[2018-05-29] MEDS: Metoprolol Succinate 25 mg XL Tab PO SCH (09:40)
[2018-05-29] MEDS: Digoxin 125 mcg (0.125 mg) Tab PO SCH (09:40)
[2018-05-29] MEDS: Saccharomyces Boulardi 250 mg Cap PO SCH ×3 (09:40→18:58)
[2018-05-29 10:15] LABS: TOTAL CELLS COUNTED 100
[2018-05-29 10:16] LABS: BANDS 1 % (0-2); EOSINOPHIL 4 % (0-4); LYMPHOCYTE 2 % (20-40); MONOCYTE 11 % (0-10); NEUTROPHIL 82 % (50-75); PLATELET ESTIMATE SLIGHTLY DECREASED (NORMAL)
[2018-05-29 10:20] LABS: ANISOCYTOSIS SLIGHT
[2018-05-29 11:45] LABS: ERYTHROCYTE SEDIMENTATION RATE 27 mm/hr (0-20)
[2018-05-29] MEDS: SILDENAFIL CITRATE 20 MG PO SCH ×2 (15:01→18:58)
[2018-05-29 22:48] LABS: SQUAMOUS EPITHIAL 8 /hpf (0-5); URINE BACTERIA FEW (<OCC); URINE BILIRUBIN NEGATIVE (NEGATIVE); URINE BLOOD 3+ (NEGATIVE); URINE CLARITY Hazy (Clear); URINE COLOR Red (YELLOW); URINE GLUCOSE (UA) NORMAL (Normal); URINE LEUKOCYTE ESTERASE 2+ Leu/uL (Negative); URINE PROTEIN 2+ mg/dL (NEGATIVE); URINE UROBILINOGEN NORMAL mg/dL (0.2-1.0)
--- NOTE | 2018-05-29 23:50 | CP.PCM.CON ---
History of Present Illness - History of Present Illness History of Present Illness: UROLOGY CONSULTATION Past Patient History - Infectious Disease Hx of Infectious Diseases: None - Past Medical History & Family History Past Medical History?: Yes - Past Social History Smoking Status: Never Smoked - CARDIAC Hx Cardiac Disorders: Yes Hx Atrial Fibrillation: Yes Hx Congestive Heart Failure: Yes Hx Hypertension: Yes Hx Mitral Valve Prolapse: Yes (MITRAL VALVE REPAIR) - PULMONARY Hx Respiratory Disorders: Yes Hx Asthma: Yes Hx Chronic Obstructive Pulmonary Disease (COPD): Yes Hx Sleep Apnea: Yes - NEUROLOGICAL Hx Neurological Disorder: Yes Hx Vertigo: Yes - HEENT Hx HEENT Problems: Yes Hx Cataracts: Yes - RENAL Hx Chronic Kidney Disease: No - ENDOCRINE/METABOLIC Hx Endocrine Disorders: No - HEMATOLOGICAL/ONCOLOGICAL Hx Blood Disorders: No - INTEGUMENTARY Hx Dermatological Problems: No - MUSCULOSKELETAL/RHEUMATOLOGICAL Hx Musculoskeletal Disorders: No Hx Falls: No - GASTROINTESTINAL Hx Gastrointestinal Disorders: No Other/Comment: H/O INTESTINAL OBSTRUX X 3 - GENITOURINARY/GYNECOLOGICAL Hx Genitourinary Disorders: Yes Hx Incontinence: Yes - PSYCHIATRIC Hx Psychophysiologic Disorder: No Hx Substance Use: No - SURGICAL HISTORY Hx Surgeries: Yes Hx Appendectomy: Yes - ANESTHESIA Hx Anesthesia: Yes Hx Anesthesia Reactions: No Hx Malignant Hyperthermia: No Has any member of the family had a problem w/ anesthesia?: No Meds Allergies/Adverse Reactions: Allergies Allergy/AdvReac Type Severity Reaction Status Date / Time meperidine HCl [From Demerol] Allergy Severe ANAPHYLAXIS Verified 05/28/18 10:55 Penicillins Allergy Intermediate SWELLING Verified 05/28/18 10:55 - Medications Medications: Current Medications Albuterol/Ipratropium (Duoneb 3 Mg/0.5 Mg (3 Ml) Ud) 3 ml INH RQ6 [facility] Last Admin: 05/29/18 19:50 Dose: 3 ml Alprazolam (Xanax) 0.25 mg PO TID PRN PRN Reason: Anxiety Stop: 06/04/18 13:39 Last Admin: 05/29/18 19:02 Dose: 0.25 mg Digoxin (Digoxin) 0.125 mg PO DAILY [facility] Last Admin: 05/29/18 09:40 Dose: 0.125 mg Famotidine (Pepcid) 20 mg PO DAILY [facility] Last Admin: 05/29/18 09:41 Dose: 20 mg Furosemide (Lasix) 40 mg IVP DAILY [facility] Last Admin: 05/29/18 09:40 Dose: 40 mg Home Med (Patient's Own Medication) 1 tab PO BID [facility] Last Admin: 05/29/18 18:58 Dose: 1 tab Ciprofloxacin (Cipro 200mg/100ml D5w) 100 mls @ 67 mls/hr IVPB Q12H [facility]; Protocol Last Admin: 05/29/18 13:26 Dose: 67 mls/hr Influenza Virus Vaccine (Flucelvax Quad [id number] Syr) 60 mcg IM .ONCE ONE Stop: 06/01/18 14:01 Metoprolol Succinate (Toprol Xl) 25 mg PO DAILY [facility] Last Admin: 05/29/18 09:40 Dose: 25 mg Saccharomyces Boulardii (Florastor) 250 mg PO TID [facility] Last Admin: 05/29/18 18:58 Dose: 250 mg Results - Vital Signs Recent Vital Signs: Last Vital Signs Temp 97.8 F 05/29/18 15:00 Pulse 67 05/29/18 22:56 Resp 20 05/29/18 15:00 BP 126/73 05/29/18 15:00 Pulse Ox 97 05/29/18 22:08 - Labs Result Diagrams: 05/29/18 07:19 05/29/18 07:19 Labs: Laboratory Results - last 24 hr 05/29/18 05/29/18 05/29/18 07:19 07:19 07:19 WBC 8.2 RBC 3.58 L Hgb 10.4 L Hct 31.7 L MCV 88.6 MCH 29.0 MCHC 32.7 L RDW 17.5 H Plt Count 106 L MPV 9.7 Neut % (Auto) 80.5 H Lymph % (Auto) 3.7 L [place] % (Auto) 12.3 H Eos % (Auto) 3.0 Baso % (Auto) 0.5 Neut # (Auto) 6.6 Lymph # (Auto) 0.3 L [place] # (Auto) 1.0 H Eos # (Auto) 0.2 Baso # (Auto) 0.0 Neutrophils % (Manual) 82 H Band Neutrophils % 1 Lymphocytes % (Manual) 2 L Monocytes % (Manual) 11 H Eosinophils % (Manual) 4 Basophils % (Manual) TEST NOT PERFORMED Platelet Estimate Slightly decreased L Anisocytosis (manual) Slight ESR 27 H Sodium 133 Potassium 3.6 Chloride 97 L Carbon Dioxide 25 Anion Gap 14 BUN 30 H Creatinine 1.1 Est GFR ( Amer) 58 Est GFR (Non-Af Amer) 48 Random Glucose 123 H Calcium 8.7 Phosphorus 3.5 Magnesium 2.1 Total Bilirubin 2.4 H AST 31 ALT 26 Alkaline Phosphatase 122 C-Reactive Protein 65.00 H Total Protein 6.9 Albumin 3.7 Globulin 3.2 Albumin/Globulin Ratio 1.1 Procalcitonin 0.17 L Urine Color Urine Clarity Urine pH Ur Specific [place] Urine Protein Urine Glucose (UA) Urine Ketones Urine Blood Urine Nitrate Urine Bilirubin Urine Urobilinogen Ur Leukocyte Esterase Urine WBC (Auto) Urine RBC (Auto) Ur Squamous Epith Cells Urine Bacteria 05/29/18 22:30 WBC RBC Hgb Hct MCV MCH MCHC RDW Plt Count MPV Neut % (Auto) Lymph % (Auto) [place] % (Auto) Eos % (Auto) Baso % (Auto) Neut # (Auto) Lymph # (Auto) [place] # (Auto) Eos # (Auto) Baso # (Auto) Neutrophils % (Manual) Band Neutrophils % Lymphocytes % (Manual) Monocytes % (Manual) Eosinophils % (Manual) Basophils % (Manual) Platelet Estimate Anisocytosis (manual) ESR Sodium Potassium Chloride Carbon Dioxide Anion Gap BUN Creatinine Est GFR ( Amer) Est GFR (Non-Af Amer) Random Glucose Calcium Phosphorus Magnesium Total Bilirubin AST ALT Alkaline Phosphatase C-Reactive Protein Total Protein Albumin Globulin Albumin/Globulin Ratio Procalcitonin Urine Color Red Urine Clarity Hazy Urine pH 6.0 Ur Specific [place] 1.014 Urine Protein 2+ H Urine Glucose (UA) Normal Urine Ketones Negative Urine Blood 3+ H Urine Nitrate Negative Urine Bilirubin Negative Urine Urobilinogen Normal Ur Leukocyte Esterase 2+ H Urine WBC (Auto) 337 H Urine RBC (Auto) 3636 H Ur Squamous Epith Cells 8 H Urine Bacteria Few H Assessment & Plan - Assessment and Plan (Free Text) Assessment: IMP: HEMATURIA - DDX: NEOPLASIA, INFECTION, UROLITHIASIS ABDOMINAL PAIN ARRHYTHMIA MITRAL VALVE DISEASE ANEMIA COAGULOPATHY, THERAPEUTIC FULL NOTE T/F - Date & Time Date: 05/29/18 Time: 10:40
[2018-05-30] MEDS: Albuterol-Ipratrop 3 mg / 0.5 (3 ml) UD INH SCH ×4 (01:45→19:32)
[2018-05-30] MEDS: Ciprofloxacin 200mg/100ml D5W 100 ML IVPB SCH ×2 (04:52→14:02)
--- NOTE | 2018-05-30 08:04 | CP.PCM.PN ---
Subjective - Date & Time of Evaluation Date of Evaluation: 05/30/18 Time of Evaluation: 08:04 - Subjective Subjective: Patient last night is somewhat slept better. But today she is feeling extremely tired. Slightly anxious also. There was some improvement in the urine blood noted. But this morning again she had a blood. Patient is having no nausea. She is eating well otherwise. On examination: Vital signs are stable. Oxygen saturation is good evening room air Chest good air entry Heart sounds are regular Abdomen soft. Edema in the legs negative. Mild ecchymosis in the arms noted, patient also has a cramps on and off. Patient was seen by urologist. I also recommended to get a consultation from cardiology and a psychiatrist. Assessment: Patient is a 82-year-old female with a history of hypertension, pulmonary hypertension, mitral ring. Patient also had a history of atrial flutter fibrillation ablation. We will continue the intravenous Lasix. Currently off anticoagulation. If she is feeling slightly better, will start anticoagulation today at least for prophylaxis for DVT. We will continue the current treatment. She is also on antibiotic for urinary tract infection, will repeat the urine culture again. Objective - Vital Signs/Intake and Output Vital Signs (last 24 hours): Temp Pulse Resp BP Pulse Ox 98.0 F 73 14 136/67 97 05/30/18 06:51 05/30/18 07:24 05/30/18 06:51 05/30/18 06:51 05/30/18 06:51 Intake and Output: 05/30/18 05/30/18 06:59 18:59 Intake Total 500 Balance 500 - Medications Medications: Current Medications Albuterol/Ipratropium (Duoneb 3 Mg/0.5 Mg (3 Ml) Ud) 3 ml INH RQ6 [facility] Last Admin: 05/30/18 01:45 Dose: 3 ml Alprazolam (Xanax) 0.25 mg PO TID PRN PRN Reason: Anxiety Stop: 06/04/18 13:39 Last Admin: 05/29/18 19:02 Dose: 0.25 mg Digoxin (Digoxin) 0.125 mg PO DAILY [facility] Last Admin: 05/29/18 09:40 Dose: 0.125 mg Famotidine (Pepcid) 20 mg PO DAILY [facility] Last Admin: 05/29/18 09:41 Dose: 20 mg Furosemide (Lasix) 40 mg IVP DAILY [facility] Last Admin: 05/29/18 09:40 Dose: 40 mg Home Med (Patient's Own Medication) 1 tab PO BID [facility] Last Admin: 05/29/18 18:58 Dose: 1 tab Ciprofloxacin (Cipro 200mg/100ml D5w) 100 mls @ 67 mls/hr IVPB Q12H [facility]; Protocol Last Admin: 05/30/18 04:52 Dose: 67 mls/hr Influenza Virus Vaccine (Flucelvax Quad [id number] Syr) 60 mcg IM .ONCE ONE Stop: 06/01/18 14:01 Metoprolol Succinate (Toprol Xl) 25 mg PO DAILY [facility] Last Admin: 05/29/18 09:40 Dose: 25 mg Saccharomyces Boulardii (Florastor) 250 mg PO TID [facility] Last Admin: 05/29/18 18:58 Dose: 250 mg - Labs Labs: 05/29/18 07:19 05/29/18 07:19 PT 15.8 SECONDS (9.7-12.2) H 05/28/18 11:52 INR 1.4 05/28/18 11:52 APTT 33 SECONDS (21-34) D 05/28/18 11:52
[2018-05-30] MEDS: Digoxin 125 mcg (0.125 mg) Tab PO SCH (09:35)
[2018-05-30] MEDS: Metoprolol Succinate 25 mg XL Tab PO SCH (09:35)
[2018-05-30] MEDS: SILDENAFIL CITRATE 20 MG PO SCH ×2 (09:36→17:31)
[2018-05-30] MEDS: Saccharomyces Boulardi 250 mg Cap PO SCH ×3 (09:36→17:31)
[2018-05-30 09:54] LABS: SQUAMOUS EPITHIAL 9 /hpf (0-5); URINE BACTERIA MANY (<OCC); URINE BILIRUBIN NEGATIVE (NEGATIVE); URINE BLOOD 3+ (NEGATIVE); URINE CLARITY Hazy (Clear); URINE COLOR Red (YELLOW); URINE GLUCOSE (UA) NORMAL (Normal); URINE LEUKOCYTE ESTERASE 2+ Leu/uL (Negative); URINE PROTEIN 2+ mg/dL (NEGATIVE); WBC CLUMPS RARE /hpf
[2018-05-30 18:31] LABS: FOLATE > 20.0 ng/mL
--- NOTE | 2018-05-30 22:24 | CP.PCM.CON ---
History of Present Illness - History of Present Illness History of Present Illness: CC: Dyspnea on exertion 82 year old female, whose past medical history includes anxiety, pulmonary arterial hypertension, and CHF, presents to the ED after being sent by her PMD for evaluation of hematuria which began around 5 days ago. Patient was evaluated in the ED [address] days [address] and bloodwork which were unremarkable. Her PMD, Dr. Cruz, changed her prescription of Eliquis from 5mg BID to half tablet BID. Patient states her bleeding continued, and she was advised by Dr. Cruz to discontinue Eliquis completely. She stopped taking Eliquis three days ago, but her bleeding continues, prompting this ED visit. Of note, patient states she started taking Sildenafil ten days ago. She denies fever, chills, and vaginal bleeding at this time. Chief Complaint (Nursing): Female Genitourinary History Per: Patient History/Exam Limitations: no limitations Onset/Duration Of Symptoms: Days (5) Current Symptoms Are (Timing): Still Present Past Medical History Reviewed: Historical Data, Nursing Documentation, Vital Signs Vital Signs: Last Vital Signs Temp 98.4 F 05/28/18 10:51 Pulse 71 05/28/18 10:51 Resp 17 05/28/18 10:51 BP 189/65 H 05/28/18 10:51 Pulse Ox 97 05/28/18 10:51 - Medical History PMH: Asthma, Atrial Fibrillation, CHF, COPD, HTN, Mitral Valve Prolapse (MITRAL VALVE REPAIR), Sleep Apnea Denies: Chronic Kidney Disease Surgical History: Appendectomy - [facility] Procedures DRAINAGE OF STOMACH WITH DRAINAGE DEVICE, VIA OPENING (04/28/16) RELEASE SMALL INTESTINE, OPEN APPROACH (03/11/15) Family History: States: Unknown Family Hx - Social History Hx Tobacco Use: No Hx Alcohol Use: No Hx Substance Use: No - Immunization History Hx Tetanus Toxoid Vaccination: No Hx Influenza Vaccination: No Hx Pneumococcal Vaccination: Yes Review Of Systems Constitutional: Negative for: Fever, Chills Gastrointestinal: Negative for: Abdominal Pain Genitourinary: Positive for: Hematuria. Negative for: Vaginal Discharge, Vaginal Bleeding Physical Exam - Physical Exam Appears: Non-toxic, No Acute Distress Skin: Normal Color, Warm, Dry, Ecchymosis (to left lateral hand and left forearm ) Head: Atraumatic, Normacephalic Eye(s): bilateral: Normal Inspection Oral Mucosa: Moist Neck: Supple Chest: Symmetrical, No Deformity, No Tenderness Cardiovascular: Rhythm Regular, No Murmur Respiratory: No Rales, No Rhonchi, Wheezing (inspiratory, bilaterally ) Gastrointestinal/Abdominal: Soft, No Tenderness, No Guarding, No Rebound Extremity: Normal ROM, Capillary Refill (less than 2 seconds ), Other (pitting edema bilaterally, left>right) Pulses: Left Dorsalis Pedis: Normal, Right Dorsalis Pedis: Normal Neurological/Psych: Oriented x3, Normal Speech, Normal Cognition Past Patient History - Infectious Disease Hx of Infectious Diseases: None - Past Medical History & Family History Past Medical History?: Yes - Past Social History Smoking Status: Never Smoked - CARDIAC Hx Cardiac Disorders: Yes Hx Congestive Heart Failure: Yes Hx Hypertension: Yes - PULMONARY Hx Chronic Obstructive Pulmonary Disease (COPD): Yes - NEUROLOGICAL Hx Neurological Disorder: Yes Hx Vertigo: Yes - HEENT Hx HEENT Problems: Yes Hx Cataracts: Yes - RENAL Hx Chronic Kidney Disease: No - ENDOCRINE/METABOLIC Hx Endocrine Disorders: No - HEMATOLOGICAL/ONCOLOGICAL Hx Blood Disorders: No - INTEGUMENTARY Hx Dermatological Problems: No - MUSCULOSKELETAL/RHEUMATOLOGICAL Hx Musculoskeletal Disorders: No Hx Falls: No - GASTROINTESTINAL Hx Gastrointestinal Disorders: No Other/Comment: H/O INTESTINAL OBSTRUX X 3 - GENITOURINARY/GYNECOLOGICAL Hx Genitourinary Disorders: Yes Hx Incontinence: Yes - PSYCHIATRIC Hx Psychophysiologic Disorder: No Hx Substance Use: No - SURGICAL HISTORY Hx Surgeries: Yes Hx Appendectomy: Yes - ANESTHESIA Hx Anesthesia: Yes Hx Anesthesia Reactions: No Hx Malignant Hyperthermia: No Has any member of the family had a problem w/ anesthesia?: No Meds Allergies/Adverse Reactions: Allergies Allergy/AdvReac Type Severity Reaction Status Date / Time meperidine HCl [From Demerol] Allergy Severe ANAPHYLAXIS Verified 05/28/18 10:55 Penicillins Allergy Intermediate SWELLING Verified 05/28/18 10:55 - Medications Medications: Current Medications Albuterol/Ipratropium (Duoneb 3 Mg/0.5 Mg (3 Ml) Ud) 3 ml INH RQ6 [facility] Last Admin: 05/30/18 19:32 Dose: 3 ml Alprazolam (Xanax) 0.25 mg PO BID PRN PRN Reason: Anxiety Stop: 06/06/18 19:16 Digoxin (Digoxin) 0.125 mg PO DAILY [facility] Last Admin: 05/30/18 09:35 Dose: 0.125 mg Famotidine (Pepcid) 20 mg PO DAILY [facility] Last Admin: 05/30/18 09:35 Dose: 20 mg Furosemide (Lasix) 40 mg IVP DAILY [facility] Last Admin: 05/30/18 09:35 Dose: 40 mg Home Med (Patient's Own Medication) 1 tab PO BID [facility] Last Admin: 05/30/18 17:31 Dose: 1 tab Ciprofloxacin (Cipro 200mg/100ml D5w) 100 mls @ 67 mls/hr IVPB Q12H [facility]; Protocol Last Admin: 05/30/18 14:02 Dose: 67 mls/hr Influenza Virus Vaccine (Flucelvax Quad [id number] Syr) 60 mcg IM .ONCE ONE Stop: 06/01/18 14:01 Metoprolol Succinate (Toprol Xl) 25 mg PO DAILY [facility] Last Admin: 05/30/18 09:35 Dose: 25 mg Saccharomyces Boulardii (Florastor) 250 mg PO TID [facility] Last Admin: 05/30/18 17:31 Dose: 250 mg Temazepam (Restoril) 15 mg PO HS PRN PRN Reason: Insomnia Last Admin: 05/30/18 21:22 Dose: 15 mg Results - Vital Signs Recent Vital Signs: Last Vital Signs Temp 97.6 F 05/30/18 15:00 Pulse 66 05/30/18 22:00 Resp 18 05/30/18 15:00 BP 109/67 05/30/18 15:00 Pulse Ox 92 L 05/30/18 16:08 - Labs Result Diagrams: 05/29/18 07:19 05/29/18 07:19 Labs: Laboratory Results - last 24 hr 05/29/18 05/30/18 05/30/18 22:30 09:34 17:03 Vitamin B12 > 1000 H Folate > 20.0 TSH 3rd Generation 3.53 Urine Color Red Red Urine Clarity Hazy Hazy Urine pH 6.0 6.0 Ur Specific [place] 1.014 1.015 Urine Protein 2+ H 2+ H Urine Glucose (UA) Normal Normal Urine Ketones Negative Negative Urine Blood 3+ H 3+ H Urine Nitrate Negative Negative Urine Bilirubin Negative Negative Urine Urobilinogen Normal 2.0 H Ur Leukocyte Esterase 2+ H 2+ H Urine WBC (Auto) 337 H 601 H Urine RBC (Auto) 3636 H 3467 H Urine WBC Clumps (Auto) Rare H Ur Squamous Epith Cells 8 H 9 H Urine Bacteria Few H Many H Assessment & Plan - Assessment and Plan (Free Text) Assessment: Impression: Shortness of breath Severe Pulmonary HTN Hx MV repair O2/BiPAP and Lasix as needed Likely benefit from Pulm HTN clinic
--- NOTE | 2018-05-31 00:23 | PCM.URO ---
Urology Progress Note - General General: Tolerating Diet - Subjective Abdominal Pain: Yes (suprapubic) Flank Pain: No Nausea: No Vomiting: No Voiding Well: No Dysuria: Yes Hematuria: Yes [place]: Yes Dsypnea: Yes Chest Pain: No Fever & Chills: No - Objective Lab Studies: Reviewed Lab Results Last 24 Hours: Laboratory Results - last 24 hr 05/30/18 05/30/18 09:34 17:03 Vitamin B12 > 1000 H Folate > 20.0 TSH 3rd Generation 3.53 Urine Color Red Urine Clarity Hazy Urine pH 6.0 Ur Specific [place] 1.015 Urine Protein 2+ H Urine Glucose (UA) Normal Urine Ketones Negative Urine Blood 3+ H Urine Nitrate Negative Urine Bilirubin Negative Urine Urobilinogen 2.0 H Ur Leukocyte Esterase 2+ H Urine WBC (Auto) 601 H Urine RBC (Auto) 3467 H Urine WBC Clumps (Auto) Rare H Ur Squamous Epith Cells 9 H Urine Bacteria Many H Intake & Output: Intake & Output 05/30/18 05/30/18 05/31/18 06:59 18:59 06:59 Intake Total 500 450 Balance 500 450 Intake: Oral 500 450 Other: Voiding Method Bedside Commode # Voids Urine, Voided 1 2 # Bowel Movements 0 0 Vital Signs: Vital Signs - 24 hr 05/30/18 05/30/18 05/30/18 01:06 05:12 06:51 Temperature 97.7 F 98.0 F Pulse Rate 77 77 88 Respiratory 14 14 Rate Blood Pressure 123/65 136/67 O2 Sat by Pulse 98 97 Oximetry 05/30/18 05/30/18 05/30/18 07:24 08:00 09:22 Temperature 97.4 F L Pulse Rate 73 68 68 Respiratory 18 Rate Blood Pressure 124/53 L O2 Sat by Pulse 96 Oximetry 05/30/18 05/30/18 05/30/18 09:34 09:35 13:29 Temperature Pulse Rate 74 68 Respiratory Rate Blood Pressure 148/75 148/75 O2 Sat by Pulse Oximetry 05/30/18 05/30/18 05/30/18 15:00 16:08 22:00 Temperature 97.6 F Pulse Rate 63 66 66 Respiratory 18 Rate Blood Pressure 109/67 O2 Sat by Pulse 100 92 L Oximetry - Physical Exam Abdominal Exam: Soft, Non-Tender, Non-Distended Back: No CVA Tenderness - Plan Additional Information: IMP: hematuria. UTI. Eliquis has been held. Hx of mitral valve repair. still w sx of abd pain. rec/p: continue current treatment - on cipro. Poss need for cystoscopy. YS - Date & Time of Note Date: 05/30/18 Time: 08:50
[2018-05-31] MEDS: Ciprofloxacin 200mg/100ml D5W 100 ML IVPB SCH (01:21)
[2018-05-31] MEDS: Albuterol-Ipratrop 3 mg / 0.5 (3 ml) UD INH SCH ×4 (01:52→19:25)
--- NOTE | 2018-05-31 04:01 | CON ---
DATE: 05/30/2018 CHIEF COMPLAINT/REASON FOR CONSULTATION: The patient was referred by Dr. Cruz for evaluation for depression and anxiety. HISTORY OF PRESENT ILLNESS: This is the case of an 83-year-old female of [place] descent. The patient was admitted today for CHF and hematuria. The patient is referred for co-management. The patient has history of taking Xanax. She states she used to take Xanax regularly at home which she was prescribed 0.25 mg three times a day p.r.n. which she is not taking. The patient was admitted, has history of multiple medical problems, hypertension, atrial fibrillation, mitral valve repair as well as effusion, pulmonary fibrosis, pulmonary hypertension, sleep apnea, congestive heart failure. The patient was noted complaining of hematuria in the urine. She was taking Eliquis, which was stopped for few days. The patient reports that she feels very anxious secondary to medical problems. She states she is sleeping well, but gets anxious and restless. She has been taking Xanax for many years. Today, she states she does not feel depressed, but she states that she liked to take the Xanax at night regularly to help her with anxiety. She states she was only taking 1 mg of Xanax at home. PAST MEDICAL HISTORY: History of anxiety, on Xanax for many years. History of hypertension, atrial fibrillation, mitral valve repair, congestive heart failure. ALLERGIES: THE PATIENT IS ALLERGIC TO DEMEROL AND COUMADIN. DRUG AND ALCOHOL HISTORY: Denies any. PSYCHO/SOCIAL HISTORY: Born and raised in [place]. She lives with her . CURRENT MEDICATIONS: The patient is on Xanax 0.25 mg t.i.d. p.r.n. The patient is on Cipro, digoxin, Lasix, and also famotidine. PHYSICAL EXAMINATION: VITAL SIGNS: Temperature is 97.4, pulse 68, blood pressure 148/75, respirations 18, and oxygen saturation is 96% LABORATORY DATA: Review of her labs shows patient's BUN is 13, creatinine 1.1. UA shows +2 for protein, +3 for blood, presence of bacteria, urine rbc is 34 to 67, urine wbc 6.1. REVIEW OF SYSTEMS: GENERAL: The patient is alert, verbal, conversing in Czech. She says she feels nervous from time to time. The patient is worried about the medical problems. SKIN: The patient is noted to have multiple hematomas in her upper extremities which is bothering her. HEENT: No headache. No dizziness. NECK: Supple. RESPIRATORY: No dyspnea. CARDIOVASCULAR: No chest pain. GASTROINTESTINAL: The patient notes her appetite is variable. No nausea, no vomiting. EXTREMITIES: The patient is moving her extremities. MUSCULOSKELETAL: Feels weak. NEUROLOGIC: Alert and oriented x3. MENTAL STATUS EXAMINATION: An elderly female of [place] descent, oriented x3, speech spontaneous. Affect is reactive. Mood is anxious. Though process coherent. Thought content, patient is worried about her medical problems. She says she has at times trouble sleeping at night. No psychosis. No suicidal or homicidal ideation. Attention and memory seem to be fair. Insight and judgement fair. Impulse control is fair. IMPRESSION: Anxiety disorder, not otherwise specified. Mood disorder secondary to medical problems. PLAN AND RECOMMENDATION: The patient was seen. Meds reviewed. We will discontinue Xanax p.r.n. and just put Xanax 0.25 mg at bedtime for her anxiety. The patient does not use anti-depression at this time. Continue treatment plan as outlined. Mani Ruvalcaba MD
[2018-05-31 07:20] LABS: BASO # 0.1 K/uL (0.0-0.2); BASO % 0.7 % (0.0-2.0); EOS % 11.1 % (0.0-4.0); HEMOGLOBIN 10.7 g/dL (11.0-16.0); LYMPH # 0.4 K/uL (1.0-4.3); LYMPH % 5.1 % (20.0-40.0); MEAN CELL VOLUME 88.2 fL (81.0-99.0); MEAN CORPUSCULAR HEMOGLOBIN 29.1 pg (27.0-31.0); MEAN PLATELET VOLUME 10.2 fL (7.2-11.7); MONO # 0.8 K/uL (0.0-0.8); MONO % 9.8 % (0.0-10.0); NEUT # 6.3 K/uL (1.8-7.0); NEUT % 73.3 % (50.0-75.0); PLATELET COUNT 114 K/uL (130-400); RBC 3.67 Mil/uL (3.80-5.20); RED CELL DISTRIBUTION WIDTH 17.5 % (11.5-14.5); WHITE BLOOD COUNT 8.6 K/uL (4.8-10.8)
[2018-05-31 07:54] LABS: ALB/GLOB RATIO 1.2 (1.0-2.1); ALBUMIN 3.7 g/dL (3.5-5.0); CALCIUM 8.7 mg/dl (8.6-10.4)
[2018-05-31 09:04] LABS: EOSINOPHIL 14 % (0-4); LYMPHOCYTE 4 % (20-40); MONOCYTE 9 % (0-10); NEUTROPHIL 73 % (50-75); TOTAL CELLS COUNTED 100
[2018-05-31 09:05] LABS: ANISOCYTOSIS SLIGHT; HYPOCHROMIC SLIGHT; PLATELET ESTIMATE SLIGHTLY DECREASED (NORMAL); POLYCHROMIC SLIGHT
[2018-05-31] MEDS: Metoprolol Succinate 25 mg XL Tab PO SCH (09:12)
[2018-05-31] MEDS: Digoxin 125 mcg (0.125 mg) Tab PO SCH (09:12)
[2018-05-31] MEDS: SILDENAFIL CITRATE 20 MG PO SCH ×2 (09:13→18:22)
[2018-05-31] MEDS: Saccharomyces Boulardi 250 mg Cap PO SCH ×3 (09:13→18:22)
--- NOTE | 2018-05-31 11:19 | CP.PCM.CON ---
History of Present Illness - History of Present Illness History of Present Illness: INFECTIOUS DISEASE CONSULT; HPI; 82-year-old Cymro-speaking female with history of pulmonary arterial hypertension, COPD, CHF, atrial fibrillation, mitral valve prolapse with mitral valve repair in 2011, sleep apnea who is admitted via the emergency room on 05/28/18 with hematuria. History obtained mainly from the son who was at the bedside and the daughter on the phone. Patient was on eliques for anticoagulation for atrial fibrillation when she started having bleeding and continued to bleed. Patient was here 3 days ago in the ER but patient was sent home after a request was discontinued to be watched and observed at home. Patient's bleeding continued, prompting repeat visit to the ER and hospitalization. As per son, patient also was on Viagra which she started 10 days ago for pulmonary arterial hypertension. In the hospital. Patient was found to have a UTI with hematuria and was placed on Cipro IV BECAUSE OF PYURIA/AND HEMATURIA Infectious disease consultation requested by PMD as patient urine culture which shows gram-negative rods, not sensitive to Cipro. Previous culture obtained shows Escherichia coli and beta-hemolytic strep 4 days ago. Patient is reported to be allergic to PENICILLIN,AND MEPERIDINE HYDROCHLORIDE. PER SON,HER MOTHER THINKS SHE IS NOT ALLERGIC TO PENICILLIN,FOR SHE ONLY HAD UPPER LIP SWELLING,BUT NO RASH. PER FAMILY, PATIENT HAD NO FEVER, CHILLS OR LOSS OF APPETITE. PMH: Asthma, Atrial Fibrillation, CHF, COPD, HTN, Mitral Valve Prolapse (MITRAL VALVE REPAIR), Sleep Apnea Denies: Chronic Kidney Disease Surgical History: Appendectomy - [facility] Procedures DRAINAGE OF STOMACH WITH DRAINAGE DEVICE, VIA OPENING (04/28/16) RELEASE SMALL INTESTINE, OPEN APPROACH (03/11/15) Family History: States: Unknown Family Hx - Social History Hx Tobacco Use: No Hx Alcohol Use: No Hx Substance Use: No - Immunization History Hx Tetanus Toxoid Vaccination: No Hx Influenza Vaccination: No Hx Pneumococcal Vaccination: Yes ALLERGY; PCN, MEPERIDINE HYDROCHLORIDE. Review of Systems - Constitutional Constitutional: Weakness. absent: Chills, Fever - EENT Eyes: absent: Change in Vision Nose/Mouth/Throat: absent: Sore Throat - Cardiovascular Cardiovascular: Dyspnea, Irregular Heart Rhythm, Leg Edema. absent: Chest Pain - Respiratory Respiratory: absent: Cough - Gastrointestinal Gastrointestinal: absent: Abdominal Pain, Diarrhea, Loose Stools, Nausea, Vomiting - Genitourinary Genitourinary: Hematuria, Pyuria, Urinary Frequency. absent: Hx Renal/Bladder Calculi - Neurological Neurological: absent: Headaches - Psychiatric Psychiatric: Anxiety - Hematologic/Lymphatic Hematologic: As Per HPI. absent: Easy Bruising Past Patient History - Infectious Disease Hx of Infectious Diseases: None - Past Medical History & Family History Past Medical History?: Yes - Past Social History Smoking Status: Never Smoked - CARDIAC Hx Cardiac Disorders: Yes Hx Congestive Heart Failure: Yes Hx Hypertension: Yes - PULMONARY Hx Chronic Obstructive Pulmonary Disease (COPD): Yes - NEUROLOGICAL Hx Neurological Disorder: Yes Hx Vertigo: Yes - HEENT Hx HEENT Problems: Yes Hx Cataracts: Yes - RENAL Hx Chronic Kidney Disease: No - ENDOCRINE/METABOLIC Hx Endocrine Disorders: No - HEMATOLOGICAL/ONCOLOGICAL Hx Blood Disorders: No - INTEGUMENTARY Hx Dermatological Problems: No - MUSCULOSKELETAL/RHEUMATOLOGICAL Hx Musculoskeletal Disorders: No Hx Falls: No - GASTROINTESTINAL Hx Gastrointestinal Disorders: No Other/Comment: H/O INTESTINAL OBSTRUX X 3 - GENITOURINARY/GYNECOLOGICAL Hx Genitourinary Disorders: Yes Hx Incontinence: Yes - PSYCHIATRIC Hx Psychophysiologic Disorder: No Hx Substance Use: No - SURGICAL HISTORY Hx Surgeries: Yes Hx Appendectomy: Yes - ANESTHESIA Hx Anesthesia: Yes Hx Anesthesia Reactions: No Hx Malignant Hyperthermia: No Has any member of the family had a problem w/ anesthesia?: No Meds Allergies/Adverse Reactions: Allergies Allergy/AdvReac Type Severity Reaction Status Date / Time meperidine HCl [From Demerol] Allergy Severe ANAPHYLAXIS Verified 05/28/18 10:55 Penicillins Allergy Intermediate SWELLING Verified 05/28/18 10:55 - Medications Medications: Current Medications Albuterol/Ipratropium (Duoneb 3 Mg/0.5 Mg (3 Ml) Ud) 3 ml INH RQ6 [facility] Last Admin: 05/31/18 01:52 Dose: Not Given Alprazolam (Xanax) 0.25 mg PO BID PRN PRN Reason: Anxiety Stop: 06/06/18 19:16 Digoxin (Digoxin) 0.125 mg PO DAILY [facility] Last Admin: 05/31/18 09:12 Dose: 0.125 mg Famotidine (Pepcid) 20 mg PO DAILY [facility] Last Admin: 05/31/18 09:13 Dose: 20 mg Furosemide (Lasix) 40 mg IVP DAILY [facility] Last Admin: 05/31/18 09:13 Dose: 40 mg Home Med (Patient's Own Medication) 1 tab PO BID [facility] Last Admin: 05/31/18 09:13 Dose: 1 tab Ciprofloxacin (Cipro 200mg/100ml D5w) 100 mls @ 67 mls/hr IVPB Q12H [facility]; Protocol Last Admin: 05/31/18 01:21 Dose: 67 mls/hr Influenza Virus Vaccine (Flucelvax Quad [id number] Syr) 60 mcg IM .ONCE ONE Stop: 06/01/18 14:01 Metoprolol Succinate (Toprol Xl) 25 mg PO DAILY [facility] Last Admin: 05/31/18 09:12 Dose: 25 mg Saccharomyces Boulardii (Florastor) 250 mg PO TID [facility] Last Admin: 05/31/18 09:13 Dose: 250 mg Temazepam (Restoril) 15 mg PO HS PRN PRN Reason: Insomnia Last Admin: 05/30/18 21:22 Dose: 15 mg Physical Exam - Constitutional Appears: No Acute Distress - Head Exam Head Exam: NORMAL INSPECTION - Eye Exam Eye Exam: EOMI, PERRL - ENT Exam ENT Exam: Normal Oropharynx - Neck Exam Neck exam: Positive for: Normal Inspection - Respiratory Exam Respiratory Exam: Clear to Auscultation Bilateral, Rales (BASILAR RALES), NORMAL BREATHING PATTERN - Cardiovascular Exam Cardiovascular Exam: Irregular Rhythm, +S1, +S2 - GI/Abdominal Exam GI & Abdominal Exam: Normal Bowel Sounds, Soft. absent: Tenderness - Extremities Exam Extremities exam: Positive for: pedal edema (2+), pedal pulses present - Neurological Exam Neurological exam: Alert, CN II-XII Intact, Oriented x3, Reflexes Normal - Psychiatric Exam Psychiatric exam: Normal Mood - Skin Skin Exam: Normal Color, Warm Results - Vital Signs Recent Vital Signs: Last Vital Signs Temp 97.9 F 05/31/18 07:00 Pulse 72 05/31/18 08:03 Resp 20 05/31/18 07:00 BP 147/82 05/31/18 09:13 Pulse Ox 95 05/31/18 07:00 - Labs Result Diagrams: 05/31/18 07:04 05/31/18 07:04 Labs: Laboratory Results - last 24 hr 05/30/18 05/31/18 05/31/18 17:03 07:04 07:04 WBC 8.6 RBC 3.67 L Hgb 10.7 L Hct 32.4 L MCV 88.2 MCH 29.1 MCHC 33.0 RDW 17.5 H Plt Count 114 L MPV 10.2 Neut % (Auto) 73.3 Lymph % (Auto) 5.1 L [place] % (Auto) 9.8 Eos % (Auto) 11.1 H Baso % (Auto) 0.7 Neut # (Auto) 6.3 Lymph # (Auto) 0.4 L [place] # (Auto) 0.8 Eos # (Auto) 1.0 H Baso # (Auto) 0.1 Neutrophils % (Manual) 73 Lymphocytes % (Manual) 4 L Monocytes % (Manual) 9 Eosinophils % (Manual) 14 H Platelet Estimate Slightly decreased L Polychromasia Slight Hypochromasia (manual) Slight Anisocytosis (manual) Slight Sodium 131 L Potassium 3.7 Chloride 96 L Carbon Dioxide 23 Anion Gap 16 BUN 36 H Creatinine 1.3 H Est GFR ( Amer) 47 Est GFR (Non-Af Amer) 39 Random Glucose 103 Calcium 8.7 Total Bilirubin 2.5 H AST 34 ALT 34 Alkaline Phosphatase 124 Total Protein 6.7 Albumin 3.7 Globulin 3.1 Albumin/Globulin Ratio 1.2 Vitamin B12 > 1000 H Folate > 20.0 TSH 3rd Generation 3.53 - Imaging and Cardiology Chest x-ray Status: Report reviewed by me ([id number] PVC.BILATERAL PLEURAL EFFUSIONS RT>LT. bIAPICAL PLEURAL THICKENING.) Assessment & Plan (1) UTI (urinary tract infection) with pyuria Status: Acute (2) Hematuria Status: Acute (3) CHF (congestive heart failure) Status: Acute (4) A-fib Status: Acute (5) H/O mitral valve repair Status: Acute (6) Pulmonary hypertension Status: Acute - Assessment and Plan (Free Text) Plan: PLAN; D/C IV CIPRO. URINE FOR EOSINOPHILS. ESR CRP. START iv VIBRAMYCIN 100 MG iv PIGGYBACK EVERY 12 HOURLY. 05/31/18 OBSERVED CLOSELY FOR ANY SIDE EFFECTS. WATCH H/H. WILL REPEAT CLEAN CATCH UA AND URINE CULTURE, ONCE HEMATURIA STOPS. fOLLOW-UP RENAL FUNCTIONS CLOSELY. MONITOR LIVER FUNCTION TESTS, PATIENT NOTED TO HAVE ISOLATED HYPERBILIR UBINEMIA, PROBABLY SECONDARY TO HEMOLYSIS. WILL FOLLOW ALONG WITH YOU AND MAKE FURTHER RECOMMENDATIONS NEEDED. ON BOARD NOTED. THANK YOU VERY MUCH FOR ALLOWING ME TO TAKE CARE OF YOUR PATIENT.
--- NOTE | 2018-05-31 16:43 | CARD ---
APPROVED REPORT Date of service: 05/31/2018 EXAM: Two-dimensional and M-mode echocardiogram with Doppler and color Doppler. INDICATION Pulmonary Hypertention Congestive Heart Failure SLEEP APNEA, MV REPAIRED RISK FACTORS Hypertension 2D DIMENSIONS IVC0.00 cm M-Mode DIMENSIONS TAPSE15.66 cm Aortic Valve AI P 1/2 [id number] Mitral Valve MV E Txbwezld393.1cm/sMV A Obhtpugm41.4cm/sE/A ratio2.9 TDI E/Lateral E'0.0E/Medial E'0.0 Tricuspid Valve TR Peak Esrwhdyv020bw/sTR Peak [id number] LEFT VENTRICLE The left ventricle is normal size. There is mild concentric left ventricular hypertrophy. The left ventricular function is normal. The left ventricular ejection fraction is within the normal range. There is a flattened septum RIGHT VENTRICLE The right ventricle is severely dilated and Mildly Hypokinetic There is normal right ventricular wall thickness. ATRIA The left atrium size is normal. The right atrium is severely dilated. The interatrial septum is intact with no evidence for an atrial septal defect. AORTIC VALVE The aortic valve is moderately thickened. There is mild to moderate aortic regurgitation. There is no aortic valvular stenosis. MITRAL VALVE There is no mitral valve stenosis. Mitral regurgitation is mild. Repaired Mitral leaflets are thickened and motion is restricted. TRICUSPID VALVE There is severe tricuspid regurgitation. There is moderate to severe pulmonary hypertension. PULMONIC VALVE There is moderate to severe pulmonic valvular regurgitation. GREAT VESSELS The aortic root is mildly enlarged. The IVC is plethoric. <Conclusion> There is mild concentric left ventricular hypertrophy. The left ventricular function is normal. The left ventricular ejection fraction is within the normal range. There is a flattened septum The right ventricle is severely dilated and Mildly Hypokinetic The right atrium is severely dilated. There is mild to moderate aortic regurgitation. Mitral regurgitation is mild. There is severe tricuspid regurgitation. There is moderate to severe pulmonary hypertension. There is moderate to severe pulmonic valvular regurgitation. Repaired Mitral leaflets are thickened and motion is restricted.
--- NOTE | 2018-05-31 18:59 | CP.PCM.PN ---
Subjective - Date & Time of Evaluation Date of Evaluation: 05/31/18 Time of Evaluation: 18:54 - Subjective Subjective: Patient now sitting up comfortably. The exertional dyspnea has significantly noted. Using the oxygen on and off. No chest pain. But shortness of breath and fatigue and weakness noted. Leg swelling is negative. Increasing urination noted with the IV Lasix with the IV Lasix On examination: Vital signs are stable otherwise. Chest good air entry Abdominal distention minimally 1+ pedal edema noted Patient's lab stability Repeat echocardiogram showing evidence of worsening pulmonary hypertension. In spite of the sildenafil citrate, there is no improvement. Urine is much clearer now. Repeat urinalysis and culture still positive for gram-negative bacteria now, persistent to ciprofloxacin. Infectious disease evaluation was called. Currently patient is on Vibramycin. I appreciate that I be consulted I also spoke to the medical office coordinator. I also spoke to the patient's and daughter in detail. Patient has a very advanced heart disease secondary to severe pulmonary hypertension Now having hematuria and a possible urinary tract infection. We will continue the current treatment. Antibiotic as per ID. We will resume the anticoagulation Eliquis 2.5 mg twice daily from tomorrow. We will follow the patient Objective - Vital Signs/Intake and Output Vital Signs (last 24 hours): Temp Pulse Resp BP Pulse Ox 97.4 F L 60 20 132/76 100 05/31/18 16:00 05/31/18 16:00 05/31/18 16:00 05/31/18 16:00 05/31/18 16:00 Intake and Output: 05/31/18 05/31/18 06:59 18:59 Intake Total 450 800 Balance 450 800 - Medications Medications: Current Medications Acetaminophen (Tylenol 325mg Tab) 650 mg PO BID PRN PRN Reason: Pain, moderate (4-7) Last Admin: 05/31/18 13:33 Dose: 650 mg Albuterol/Ipratropium (Duoneb 3 Mg/0.5 Mg (3 Ml) Ud) 3 ml INH RQ6 [facility] Last Admin: 05/31/18 13:18 Dose: Not Given Alprazolam (Xanax) 0.25 mg PO BID PRN PRN Reason: Anxiety Stop: 06/06/18 19:16 Digoxin (Digoxin) 0.125 mg PO DAILY [facility] Last Admin: 05/31/18 09:12 Dose: 0.125 mg Famotidine (Pepcid) 20 mg PO DAILY [facility] Last Admin: 05/31/18 09:13 Dose: 20 mg Furosemide (Lasix) 40 mg PO DAILY [facility] Home Med (Patient's Own Medication) 1 tab PO BID [facility] Last Admin: 05/31/18 18:22 Dose: 1 tab Doxycycline Hyclate 100 mg/ (Sodium Chloride) 100 mls @ 100 mls/hr IVPB Q12H [facility]; Protocol Last Admin: 05/31/18 13:33 Dose: 100 mls/hr Influenza Virus Vaccine (Flucelvax Quad [id number] Syr) 60 mcg IM .ONCE ONE Stop: 06/01/18 14:01 Metoprolol Succinate (Toprol Xl) 25 mg PO DAILY [facility] Last Admin: 05/31/18 09:12 Dose: 25 mg Saccharomyces Boulardii (Florastor) 250 mg PO TID [facility] Last Admin: 05/31/18 18:22 Dose: 250 mg Temazepam (Restoril) 15 mg PO HS PRN PRN Reason: Insomnia Last Admin: 05/30/18 21:22 Dose: 15 mg - Labs Labs: 05/31/18 07:04 05/31/18 07:04 PT 15.8 SECONDS (9.7-12.2) H 05/28/18 11:52 INR 1.4 05/28/18 11:52 APTT 33 SECONDS (21-34) D 05/28/18 11:52
--- NOTE | 2018-05-31 23:01 | PN ---
DATE: 05/31/2018 SUBJECTIVE: The patient is seen. The patient slept better last night. She was given Restoril and also Xanax. The patient is still anxious and somatic and worries about her medical problems. The patient states that she took temazepam last night but did not have any Xanax. REVIEW OF SYSTEMS: The patient is seen in her room sitting, alert and oriented x3, in no acute respiratory distress. PHYSICAL EXAMINATION: VITAL SIGNS: Temperature 97.4, pulse 60, blood pressure 132/76, respirations 20, oxygen saturation is 100%. GENERAL: The patient has a history of sleep apnea and was using BiPAP last night. SKIN: No diaphoresis. HEENT: No headache. No dizziness. NECK: Supple. RESPIRATORY: No dyspnea. CARDIOVASCULAR: No chest pain. GASTROINTESTINAL: Eating well. EXTREMITIES: Moving her extremities. MUSCULOSKELETAL: Weakness improving. NEUROLOGIC: Alert and oriented x2. GENITOURINARY: No urinary problems. MENTAL STATUS EXAMINATION: An elderly female of [place] descent, oriented x3, Macanese speaking. Affect is reactive. Mood is much calm, less somatic. Speech is spontaneous. Thought process is coherent. Thought content, the patient states she slept better last night. No psychosis. No suicidal or homicidal ideation. The patient wants to go home. Attention and memory seem to be fair. Insight and judgment fair. Impulse control is fair. IMPRESSION: Mood disorder and anxiety disorder, not otherwise specified. PLAN AND RECOMMENDATIONS: The patient is seen. Meds reviewed. May continue Restoril p.r.n. and Xanax p.r.n. Continue treatment plan as outlined. Mani Ruvalcaba MD
--- NOTE | 2018-06-01 01:29 | CP.PCM.PN ---
Subjective - Date & Time of Evaluation Date of Evaluation: 05/31/18 Time of Evaluation: 18:30 - Subjective Subjective: Patient seen and evaluated Improved breathing but not completely resolved Severe Pulm HTN Review Of Systems Constitutional: Negative for: Fever, Chills Gastrointestinal: Negative for: Abdominal Pain Genitourinary: Positive for: Hematuria. Negative for: Vaginal Discharge, Vaginal Bleeding Physical Exam - Physical Exam Appears: Non-toxic, No Acute Distress Skin: Normal Color, Warm, Dry, Ecchymosis (to left lateral hand and left forearm ) Head: Atraumatic, Normacephalic Eye(s): bilateral: Normal Inspection Oral Mucosa: Moist Neck: Supple Chest: Symmetrical, No Deformity, No Tenderness Cardiovascular: Rhythm Regular, No Murmur Respiratory: No Rales, No Rhonchi, Wheezing (inspiratory, bilaterally ) Gastrointestinal/Abdominal: Soft, No Tenderness, No Guarding, No Rebound Extremity: Normal ROM, Capillary Refill (less than 2 seconds ), Other (pitting edema bilaterally, left>right) Pulses: Left Dorsalis Pedis: Normal, Right Dorsalis Pedis: Normal Neurological/Psych: Oriented x3, Normal Speech, Normal Cognition Assessment & Plan - Assessment and Plan (Free Text) Assessment: Impression: Shortness of breath Severe Pulmonary HTN Hx MV repair O2/BiPAP and Lasix as needed Likely benefit from Pulm HTN clinic Objective - Vital Signs/Intake and Output Vital Signs (last 24 hours): Temp Pulse Resp BP Pulse Ox 97.9 F 63 20 132/73 100 06/01/18 00:00 06/01/18 00:00 06/01/18 00:00 06/01/18 00:00 06/01/18 00:00 Intake and Output: 05/31/18 06/01/18 18:59 06:59 Intake Total 800 Balance 800 - Medications Medications: Current Medications Acetaminophen (Tylenol 325mg Tab) 650 mg PO BID PRN PRN Reason: Pain, moderate (4-7) Last Admin: 05/31/18 13:33 Dose: 650 mg Albuterol/Ipratropium (Duoneb 3 Mg/0.5 Mg (3 Ml) Ud) 3 ml INH RQ6 [facility] Last Admin: 05/31/18 19:25 Dose: 3 ml Alprazolam (Xanax) 0.25 mg PO BID PRN PRN Reason: Anxiety Stop: 06/06/18 19:16 Last Admin: 05/31/18 22:04 Dose: 0.25 mg Apixaban (Eliquis) 2.5 mg PO Q12 [facility] Digoxin (Digoxin) 0.125 mg PO DAILY [facility] Last Admin: 05/31/18 09:12 Dose: 0.125 mg Famotidine (Pepcid) 20 mg PO DAILY [facility] Last Admin: 05/31/18 09:13 Dose: 20 mg Furosemide (Lasix) 40 mg PO DAILY [facility] Home Med (Patient's Own Medication) 1 tab PO BID [facility] Last Admin: 05/31/18 18:22 Dose: 1 tab Doxycycline Hyclate 100 mg/ (Sodium Chloride) 100 mls @ 100 mls/hr IVPB Q12H [facility]; Protocol Last Admin: 06/01/18 00:50 Dose: 100 mls/hr Influenza Virus Vaccine (Flucelvax Quad [id number] Syr) 60 mcg IM .ONCE ONE Stop: 06/01/18 14:01 Metoprolol Succinate (Toprol Xl) 25 mg PO DAILY [facility] Last Admin: 05/31/18 09:12 Dose: 25 mg Saccharomyces Boulardii (Florastor) 250 mg PO TID [facility] Last Admin: 05/31/18 18:22 Dose: 250 mg Temazepam (Restoril) 15 mg PO HS PRN PRN Reason: Insomnia Last Admin: 05/31/18 22:04 Dose: 15 mg - Labs Labs: 05/31/18 07:04 05/31/18 07:04 PT 15.8 SECONDS (9.7-12.2) H 05/28/18 11:52 INR 1.4 05/28/18 11:52 APTT 33 SECONDS (21-34) D 05/28/18 11:52
[2018-06-01] MEDS: Albuterol-Ipratrop 3 mg / 0.5 (3 ml) UD INH SCH ×4 (01:54→19:31)
--- NOTE | 2018-06-01 08:17 | CP.PCM.PN ---
Subjective - Date & Time of Evaluation Date of Evaluation: 06/01/18 Time of Evaluation: 08:14 - Subjective Subjective: Patient last night slept well with the BiPAP. This morning patient had a clear urine No chest pain, but easy fatigability under shortness of breath with minimal exertion noted. Patient is comfortable otherwise. Sitting up without any problems. On examination: Vital signs are noted. Nonspecific. Chest good air entry bilaterally. No rales or wheezing noted Regular heart sounds noted Abdomen soft minimal distention present extremities 1+ pedal edema Patient's repeat echocardiogram yesterday showing very severely elevated pulmonary arterial pressure associated with severe tricuspid regurgitation. Also there is an elevated back pressure in the IVC and there inferior vena cava noted Assessment and recommendation: 83-year-old female with a history of mitral valve repair, ablation, pulmonary hypertension, Recently admitted now with acute urinary tract infection Also associated hematuria Will resume the anticoagulation today and monitor the urine analysis. Patient is at high risk for recurrent UTI, and also hematuria. Overall prognosis is poor Severe pulmonary hypertension, currently on sildenafil citrate. Patient may be benefiting with the other agents which can be done as an outpatient. We will follow the patient Objective - Vital Signs/Intake and Output Vital Signs (last 24 hours): Temp Pulse Resp BP Pulse Ox 97.9 F 69 20 144/81 96 06/01/18 07:00 06/01/18 07:00 06/01/18 07:00 06/01/18 07:00 06/01/18 07:00 - Medications Medications: Current Medications Acetaminophen (Tylenol 325mg Tab) 650 mg PO BID PRN PRN Reason: Pain, moderate (4-7) Last Admin: 05/31/18 13:33 Dose: 650 mg Albuterol/Ipratropium (Duoneb 3 Mg/0.5 Mg (3 Ml) Ud) 3 ml INH RQ6 [facility] Last Admin: 06/01/18 01:54 Dose: 3 ml Alprazolam (Xanax) 0.25 mg PO BID PRN PRN Reason: Anxiety Stop: 06/06/18 19:16 Last Admin: 05/31/18 22:04 Dose: 0.25 mg Apixaban (Eliquis) 2.5 mg PO Q12 [facility] Digoxin (Digoxin) 0.125 mg PO DAILY [facility] Last Admin: 05/31/18 09:12 Dose: 0.125 mg Famotidine (Pepcid) 20 mg PO DAILY [facility] Last Admin: 05/31/18 09:13 Dose: 20 mg Furosemide (Lasix) 40 mg PO DAILY [facility] Home Med (Patient's Own Medication) 1 tab PO BID [facility] Last Admin: 05/31/18 18:22 Dose: 1 tab Doxycycline Hyclate 100 mg/ (Sodium Chloride) 100 mls @ 100 mls/hr IVPB Q12H [facility]; Protocol Last Admin: 06/01/18 00:50 Dose: 100 mls/hr Influenza Virus Vaccine (Flucelvax Quad [id number] Syr) 60 mcg IM .ONCE ONE Stop: 06/01/18 14:01 Metoprolol Succinate (Toprol Xl) 25 mg PO DAILY [facility] Last Admin: 05/31/18 09:12 Dose: 25 mg Saccharomyces Boulardii (Florastor) 250 mg PO TID [facility] Last Admin: 05/31/18 18:22 Dose: 250 mg Temazepam (Restoril) 15 mg PO HS PRN PRN Reason: Insomnia Last Admin: 05/31/18 22:04 Dose: 15 mg - Labs Labs: 05/31/18 07:04 05/31/18 07:04 PT 15.8 SECONDS (9.7-12.2) H 05/28/18 11:52 INR 1.4 05/28/18 11:52 APTT 33 SECONDS (21-34) D 05/28/18 11:52
[2018-06-01] MEDS: SILDENAFIL CITRATE 20 MG PO SCH ×2 (09:20→17:59)
[2018-06-01] MEDS: Digoxin 125 mcg (0.125 mg) Tab PO SCH (09:21)
[2018-06-01] MEDS: Saccharomyces Boulardi 250 mg Cap PO SCH ×3 (09:21→17:59)
[2018-06-01] MEDS: Metoprolol Succinate 25 mg XL Tab PO SCH (09:21)
[2018-06-01] MEDS ORDERED: Influenza Vaccine 60 mcg/0.5 mL SYR (4YR UP) IM ONE (14:00)
--- NOTE | 2018-06-01 17:30 | CON ---
DATE: 05/29/2018 UROLOGY CONSULTATION REQUESTED BY: Bambi Cruz MD CONSULTATION FILLED BY: Ashley Lomax MD REASON FOR CONSULTATION Hematuria. The patient is 82-year-old female with hematuria. The patient is in otherwise fair health. The patient has a history of hypertension. The patient has history of congestive heart failure. There is history of arrhythmia including atrial flutter/fibrillation. The patient has history of mitral valve disease. She has had previous mitral valve surgery. The patient also has history of pulmonary hypertension treated with sildenafil. The patient now presents with hematuria. The patient has had suprapubic pain. The patient has had dysuria as well. There have been no fever or rigors. The patient has had some increased . The patient has been treated with Cipro. The patient developed hematuria. She also noted increased urinary frequency associated with lower abdominal pain. No flank pain. No nausea or vomiting. There is no history of urolithiasis. Mrs. Mena has been treated with Eliquis as anticoagulation therapy. Past surgical history includes bowel resection. PHYSICAL EXAMINATION: GENERAL: Patient well-developed, well-nourished elderly female, appearing her stated age. The patient is awake and alert. ABDOMEN: Soft, nondistended. There is mild suprapubic tenderness. No mass or organomegaly. BACK: No CVA tenderness. LABORATORY DATA: Reviewed. Further details of the chart reviewed as well. IMPRESSION: Hematuria. Voiding symptoms. Suprapubic pain. Dysuria. Probable urinary tract infection. RECOMMENDATIONS AND PLAN: Continue antibiotic therapy. CT scan. Urine culture. Urine cytology. Further therapy to follow according to the patient's clinical course. Possible need for cystoscopy. Thank you for recommending the patient for urology consultation. Ashley Lomax MD cc: Bambi Cruz MD
--- NOTE | 2018-06-01 19:28 | PN ---
DATE: 06/01/2018 SUBJECTIVE: The patient is seen. The patient seems to be sleeping better, but the son reports that the patient gets periods of confusion and disorientation for a short time after waking up. The patient states she is sleeping much better. According to the son who gave lot of information, patient is always very anxious and gets into panic attack, especially at home if she hears bad news or anything and that she worries a lot about her . I discussed with her son as well as with her daughter that we will cut down the dose of Restoril to 7.5 at bedtime and then we will change the dose of the Xanax p.r.n. from 0.25 mg p.o. t.i.d. to 0.5 mg p.o. b.i.d. The patient has intermittent bouts of panic attacks triggered by some news. The patient according to the son has been having this anxiety attacks and we did check her oxygen saturation, it is within normal limits. She is currently on Xanax 0.25 mg t.i.d. p.r.n. and Restoril 15 mg at bedtime. I will change her medication. PHYSICAL EXAMINATION: GENERAL: This is an alert, oriented x3, seen with her son. The patient conversing mostly in Estonian. VITAL SIGNS: Temperature 97.9, pulse is 72, blood pressure 144/81, respirations 20, oxygen saturation is 96%. SKIN: No diaphoresis. HEENT: No headache. No dizziness. NECK: Supple. RESPIRATORY: Off and on shortness of breath. CARDIOVASCULAR: No palpitation. GASTROINTESTINAL: She is eating fairly well. According to the son, she is eating better. EXTREMITIES: The patient is ambulating well with physical therapy staff. MUSCULOSKELETAL: Weakness improving. NEUROLOGIC: Alert and oriented x3 when seen. MENTAL STATUS EXAMINATION: An elderly female, looks stated age, oriented x3, Estonian speaking. Mood is anxious. Affect is reactive. Speech is spontaneous. Thought process is coherent. Thought content, no overt psychosis. The patient has very high free floating anxiety. No suicidal ideation. Attention and memory seem to be fair. Insight and judgment fair. Impulse control is fair. IMPRESSION: Anxiety disorder, not otherwise specified. Mood disorder. PLAN AND RECOMMENDATIONS: The patient is seen. Meds reviewed. We will change the Xanax p.r.n. to 0.25 mg t.i.d. p.r.n. and then we will lower the dose of Restoril to 7.5 mg at bedtime. I have called the pharmacy. They do not have the 7.5 nonformulary. We will try to give a prescription for the family to buy and will use it as home meds. Mani Ruvalcaba MD
[2018-06-01] MEDS: TEMAZEPAM 7.5MG PO SCH (22:48)
[2018-06-01] MEDS ORDERED: Aztreonam 1 GM in Sodium Chloride 0.9% 100 ML IVPB ONE (23:00)
--- NOTE | 2018-06-01 23:05 | CP.PCM.PN ---
Subjective - Date & Time of Evaluation Date of Evaluation: 06/01/18 Time of Evaluation: 23:05 - Subjective Subjective: AFEBRILE, LESS SOB, SITTING UP. GENERALIZED EDEMA LESS DENIES FURTHER HEMATURIA. LABS ; REVIEWED URINE FOR EOSINOPHILS -VE REPEAT RANDOM URINE 05/31/17 +VE GNR Objective - Vital Signs/Intake and Output Vital Signs (last 24 hours): Temp Pulse Resp BP Pulse Ox 97.2 F L 65 20 103/67 100 06/01/18 15:00 06/01/18 22:26 06/01/18 15:00 06/01/18 15:00 06/01/18 15:00 - Medications Medications: Current Medications Acetaminophen (Tylenol 325mg Tab) 650 mg PO BID PRN PRN Reason: Pain, moderate (4-7) Last Admin: 05/31/18 13:33 Dose: 650 mg Albuterol/Ipratropium (Duoneb 3 Mg/0.5 Mg (3 Ml) Ud) 3 ml INH RQ6 [facility] Last Admin: 06/01/18 19:31 Dose: 3 ml Alprazolam (Xanax) 0.5 mg PO TID PRN PRN Reason: Anxiety Last Admin: 06/01/18 15:37 Dose: 0.5 mg Apixaban (Eliquis) 2.5 mg PO Q12 [facility] Last Admin: 06/01/18 22:36 Dose: 2.5 mg Digoxin (Digoxin) 0.125 mg PO DAILY [facility] Last Admin: 06/01/18 09:21 Dose: 0.125 mg Famotidine (Pepcid) 20 mg PO DAILY [facility] Last Admin: 06/01/18 09:21 Dose: 20 mg Furosemide (Lasix) 40 mg PO DAILY [facility] Last Admin: 06/01/18 09:21 Dose: 40 mg Home Med (Patient's Own Medication) 1 tab PO BID [facility] Last Admin: 06/01/18 17:59 Dose: 1 tab Home Med (Patient's Own Control Medication) 1 tab PO HS [facility] Last Admin: 06/01/18 22:48 Dose: 1 tab Doxycycline Hyclate 100 mg/ (Sodium Chloride) 100 mls @ 100 mls/hr IVPB Q12H [facility]; Protocol Last Admin: 06/01/18 13:59 Dose: 100 mls/hr Metoprolol Succinate (Toprol Xl) 25 mg PO DAILY [facility] Last Admin: 06/01/18 09:21 Dose: 25 mg Saccharomyces Boulardii (Florastor) 250 mg PO TID [facility] Last Admin: 06/01/18 17:59 Dose: 250 mg - Labs Labs: 05/31/18 07:04 05/31/18 07:04 PT 15.8 SECONDS (9.7-12.2) H 05/28/18 11:52 INR 1.4 05/28/18 11:52 APTT 33 SECONDS (21-34) D 05/28/18 11:52 - Constitutional Appears: No Acute Distress - Head Exam Head Exam: NORMAL INSPECTION - Eye Exam Eye Exam: EOMI, PERRL - ENT Exam ENT Exam: Normal Oropharynx - Neck Exam Neck Exam: Normal Inspection - Respiratory Exam Respiratory Exam: Rales (B/L BASILAR RALES), NORMAL BREATHING PATTERN - Cardiovascular Exam Cardiovascular Exam: REGULAR RHYTHM, +S1, +S2 - GI/Abdominal Exam GI & Abdominal Exam: Soft, Normal Bowel Sounds. absent: Tenderness - Back Exam Back Exam: absent: CVA tenderness (L), CVA tenderness (R) - Neurological Exam Neurological Exam: Awake, CN II-XII Intact, Oriented x3, Reflexes Normal - Psychiatric Exam Psychiatric exam: Normal Mood - Skin Skin Exam: Normal Color, Warm Assessment and Plan (1) UTI (urinary tract infection) with pyuria Status: Acute (2) Hematuria Status: Acute (3) CHF (congestive heart failure) Status: Acute (4) A-fib Status: Acute (5) H/O mitral valve repair Status: Acute (6) Pulmonary hypertension Status: Acute - Assessment and Plan (Free Text) Plan: START IV AZACTAM 1GM IVPB Q 12HRLY AFTER TEST DOSE AND WATCH CLOSELY FOR ANY REACTIONS DISCUSSED WITH PHARMACY. 06/01/18 CONTINUE IV VIBRAMYCIN 100 MG iv PIGGYBACK EVERY 12 HOURLY. 05/31/18 FOR NOW OBSERVED CLOSELY FOR ANY SIDE EFFECTS. WATCH H/H. WILL REPEAT CLEAN CATCH UA AND URINE CULTURE MONDAY. fOLLOW-UP RENAL FUNCTIONS CLOSELY. MONITOR LIVER FUNCTION TESTS, PATIENT NOTED TO HAVE ISOLATED HYPERBILIRUBINEMIA, PROBABLY SECONDARY TO HEMOLYSIS.
--- NOTE | 2018-06-01 23:32 | PCM.URO ---
Urology Progress Note - General General: No Complaints, Tolerating Diet - Subjective Abdominal Pain: Yes (mild) Flank Pain: No Vomiting: No Voiding Well: Yes Dysuria: Yes (mild) Hematuria: No (resolved) Urinary Urgency: No Frequency: No Good Stream: Yes Chest Pain: No Fever & Chills: No - Objective Vital Signs: Vital Signs - 24 hr 06/01/18 06/01/18 06/01/18 00:00 01:00 01:54 Temperature 97.9 F Pulse Rate 63 63 65 Respiratory 20 Rate Blood Pressure 132/73 O2 Sat by Pulse 100 Oximetry 06/01/18 06/01/18 06/01/18 07:00 08:00 09:21 Temperature 97.9 F Pulse Rate 69 72 Respiratory 20 Rate Blood Pressure 144/81 144/81 O2 Sat by Pulse 96 Oximetry 06/01/18 06/01/18 06/01/18 15:00 16:00 22:26 Temperature 97.2 F L Pulse Rate 61 61 65 Respiratory 20 Rate Blood Pressure 103/67 O2 Sat by Pulse 100 Oximetry - Physical Exam Abdominal Exam: Soft, Non-Tender, Non-Distended Bowel Sounds: Normal Back: No CVA Tenderness - Plan Additional Information: IMP: improved clinically. resolved hematuria. E Coli UTI. Pulmonary hypertension. Mitral valve disease. Rec/p: antibiotic rx as per ID. consider cystoscopy re previous hematuria. Discussed w ot. YS - Date & Time of Note Date: 06/01/18 Time: 10:50
[2018-06-02] MEDS: Albuterol-Ipratrop 3 mg / 0.5 (3 ml) UD INH SCH ×4 (03:36→19:50)
[2018-06-02] MEDS: Digoxin 125 mcg (0.125 mg) Tab PO SCH (09:41)
[2018-06-02] MEDS: Saccharomyces Boulardi 250 mg Cap PO SCH ×3 (09:41→18:21)
[2018-06-02] MEDS: Metoprolol Succinate 25 mg XL Tab PO SCH (09:41)
[2018-06-02] MEDS: SILDENAFIL CITRATE 20 MG PO SCH ×2 (09:42→18:21)
--- NOTE | 2018-06-02 10:00 | CP.PCM.PN ---
Subjective - Date & Time of Evaluation Date of Evaluation: 06/01/18 Time of Evaluation: 19:05 - Subjective Subjective: Patient seen and evaluated Improved breathing but not completely resolved Hematuria resolved Review Of Systems Constitutional: Negative for: Fever, Chills Gastrointestinal: Negative for: Abdominal Pain Genitourinary: Positive for: Hematuria. Negative for: Vaginal Discharge, Vaginal Bleeding Physical Exam - Physical Exam Appears: Non-toxic, No Acute Distress Skin: Normal Color, Warm, Dry, Ecchymosis (to left lateral hand and left forearm ) Head: Atraumatic, Normacephalic Eye(s): bilateral: Normal Inspection Oral Mucosa: Moist Neck: Supple Chest: Symmetrical, No Deformity, No Tenderness Cardiovascular: Rhythm Regular, No Murmur Respiratory: No Rales, No Rhonchi, Wheezing (inspiratory, bilaterally ) Gastrointestinal/Abdominal: Soft, No Tenderness, No Guarding, No Rebound Extremity: Normal ROM, Capillary Refill (less than 2 seconds ), Other (pitting edema bilaterally, left>right) Pulses: Left Dorsalis Pedis: Normal, Right Dorsalis Pedis: Normal Neurological/Psych: Oriented x3, Normal Speech, Normal Cognition Assessment & Plan - Assessment and Plan (Free Text) Assessment: Impression: Shortness of breath Severe Pulmonary HTN Hx MV repair O2/BiPAP and Lasix as needed Likely benefit from Pulm HTN clinic Objective - Vital Signs/Intake and Output Vital Signs (last 24 hours): Temp Pulse Resp BP Pulse Ox 97.9 F 65 20 122/80 94 L 06/02/18 08:00 06/02/18 08:06 06/02/18 08:00 06/02/18 09:42 06/02/18 08:00 Intake and Output: 06/02/18 06/02/18 06:59 18:59 Intake Total 200 Balance 200 - Medications Medications: Current Medications Acetaminophen (Tylenol 325mg Tab) 650 mg PO BID PRN PRN Reason: Pain, moderate (4-7) Last Admin: 05/31/18 13:33 Dose: 650 mg Albuterol/Ipratropium (Duoneb 3 Mg/0.5 Mg (3 Ml) Ud) 3 ml INH RQ6 [facility] Last Admin: 06/02/18 03:36 Dose: 3 ml Alprazolam (Xanax) 0.5 mg PO TID PRN PRN Reason: Anxiety Last Admin: 06/02/18 09:41 Dose: 0.5 mg Apixaban (Eliquis) 2.5 mg PO Q12 [facility] Last Admin: 06/02/18 09:42 Dose: 2.5 mg Digoxin (Digoxin) 0.125 mg PO DAILY [facility] Last Admin: 06/02/18 09:41 Dose: 0.125 mg Famotidine (Pepcid) 20 mg PO DAILY [facility] Last Admin: 06/02/18 09:42 Dose: 20 mg Furosemide (Lasix) 40 mg PO DAILY [facility] Last Admin: 06/02/18 09:42 Dose: 40 mg Home Med (Patient's Own Medication) 1 tab PO BID [facility] Last Admin: 06/02/18 09:42 Dose: 1 tab Home Med (Patient's Own Control Medication) 1 tab PO HS [facility] Last Admin: 06/01/18 22:48 Dose: 1 tab Doxycycline Hyclate 100 mg/ (Sodium Chloride) 100 mls @ 100 mls/hr IVPB Q12H [facility]; Protocol Last Admin: 06/02/18 00:23 Dose: 100 mls/hr Aztreonam 1 gm/ Sodium (Chloride) 100 mls @ 100 mls/hr IVPB Q12H [facility]; Protocol Aztreonam 1 gm/ Sodium (Chloride) 100 mls @ 2 mls/hr IVPB ONCE ONE Stop: 06/04/18 00:59 Last Admin: 06/02/18 00:23 Dose: 2 mls/hr Metoprolol Succinate (Toprol Xl) 25 mg PO DAILY [facility] Last Admin: 06/02/18 09:41 Dose: 25 mg Saccharomyces Boulardii (Florastor) 250 mg PO TID [facility] Last Admin: 06/02/18 09:41 Dose: 250 mg - Labs Labs: 05/31/18 07:04 05/31/18 07:04 PT 15.8 SECONDS (9.7-12.2) H 05/28/18 11:52 INR 1.4 05/28/18 11:52 APTT 33 SECONDS (21-34) D 05/28/18 11:52
[2018-06-02] MEDS: Aztreonam 1 GM in Sodium Chloride 0.9% 100 ML IVPB SCH ×2 (13:24→23:48)
[2018-06-02 19:21] LABS: BASO # 0.1 K/uL (0.0-0.2); BASO % 1.5 % (0.0-2.0); EOS % 12.5 % (0.0-4.0); HEMOGLOBIN 10.5 g/dL (11.0-16.0); LYMPH # 0.6 K/uL (1.0-4.3); LYMPH % 7.7 % (20.0-40.0); MEAN CORPUSCULAR HEMOGLOBIN 28.2 pg (27.0-31.0); MEAN CORPUSCULAR HGB CONC 32.1 g/dL (33.0-37.0); MEAN PLATELET VOLUME 9.6 fL (7.2-11.7); MONO # 0.7 K/uL (0.0-0.8); MONO % 8.2 % (0.0-10.0); NEUT # 5.8 K/uL (1.8-7.0); NEUT % 70.1 % (50.0-75.0); PLATELET COUNT 167 K/uL (130-400); RBC 3.71 Mil/uL (3.80-5.20); RED CELL DISTRIBUTION WIDTH 17.3 % (11.5-14.5); WHITE BLOOD COUNT 8.3 K/uL (4.8-10.8)
[2018-06-02 19:40] LABS: ALB/GLOB RATIO 1.2 (1.0-2.1); ALBUMIN 3.7 g/dL (3.5-5.0); CALCIUM 8.6 mg/dl (8.6-10.4)
[2018-06-02 19:45] LABS: ANISOCYTOSIS MODERATE; BANDS 1 % (0-2); BASOPHIL 1 % (0-2); EOSINOPHIL 8 % (0-4); LYMPHOCYTE 7 % (20-40); MONOCYTE 10 % (0-10); NEUTROPHIL 73 % (50-75); PLATELET ESTIMATE NORMAL (NORMAL); TOTAL CELLS COUNTED 100
[2018-06-02 19:46] LABS: HYPOCHROMIC SLIGHT; OVALOCYTES SLIGHT; POIKILOCYTOSIS SLIGHT; POLYCHROMIC SLIGHT
[2018-06-02 19:47] LABS: LARGE PLATELETS PRESENT
--- NOTE | 2018-06-02 21:03 | PN ---
DATE: 06/02/2018 SUBJECTIVE: The patient is seen. The patient's Restoril dose was reduced to 7.5, and the patient did not sleep well. She was very anxious and restless with multiple complaints. The nurse told this doctor that she would give an early Xanax, and she responded better to that. We will probably discontinue the Restoril 7.5 and just give Xanax 0.5 mg at bedtime and then Xanax changed to p.r.n. to 0.5 mg b.i.d. instead of t.i.d. The patient has multiple somatic complaints when seen. REVIEW OF SYSTEMS: Seen in her room, feeling still very anxious and somatic. PHYSICAL EXAMINATION: VITAL SIGNS: Temperature is 97.9, heart rate 66, blood pressure 122/80, respirations 20, and oxygen saturation is 94%. GENERAL: She stated that the medicine did not help her sleep very well last night with the reduced dose of Restoril. SKIN: No diaphoresis. HEENT: No headache, no dizziness. NECK: Supple. RESPIRATORY: No dyspnea. CARDIOVASCULAR: No chest pain when seen. GASTROINTESTINAL: No nausea, no vomiting. EXTREMITIES: The patient is moving her extremities. MUSCULOSKELETAL: Feels weak. NEUROLOGIC: Alert and oriented x 2. GENITOURINARY: No urinary problems. MENTAL STATUS EXAMINATION: An elderly female, who looks stated age, oriented x 3, anxious, somatic, states that she did not sleep well last night. Thought process coherent. Thought content, no psychosis, no suicidal ideation. The patient is very anxious at baseline. No psychosis. No suicidal or homicidal ideation. Attention and memory seem to be limited. Insight and judgment impaired. Impulse control is fair. IMPRESSION: Mood disorder, generalized anxiety disorder. PLAN AND RECOMMENDATION: The patient is seen, meds reviewed. We will discontinue the Restoril 7.5 mg at bedtime. We will put her on Xanax 0.5 mg at bedtime and discontinue the Xanax p.r.n. which was 0.5 t.i.d. and make it 0.5 p.o. b.i.d. p.r.n. with Xanax 0.5 at bedtime as standing. Mani Ruvalcaba MD [facility] # [id number]
[2018-06-02] MEDS: TEMAZEPAM 7.5MG PO SCH (21:35)
[2018-06-02] MEDS ORDERED: TEMAZEPAM 7.5MG PO SCH (22:00)
[2018-06-02 22:37] LABS: SQUAMOUS EPITHIAL 4 /hpf (0-5); URINE BILIRUBIN NEGATIVE (NEGATIVE); URINE BLOOD 3+ (NEGATIVE); URINE CLARITY Hazy (Clear); URINE COLOR Red (YELLOW); URINE GLUCOSE (UA) NORMAL (Normal); URINE LEUKOCYTE ESTERASE NEG Leu/uL (Negative); URINE PROTEIN 1+ mg/dL (NEGATIVE); URINE UROBILINOGEN NORMAL mg/dL (0.2-1.0)
--- NOTE | 2018-06-02 23:45 | CP.PCM.PN ---
Subjective - Date & Time of Evaluation Date of Evaluation: 06/02/18 Time of Evaluation: 23:45 - Subjective Subjective: AFEBRILE, HEMATURIA RESOLVED. LESS SOB , APPETITE GOOD . LABS; REPEAT URINE CULTURE +VE GNR. PLAN; TOLERATED IV AZACTAM TEST DOSE LAST NIGHT . 06/02/18 NOW ON IV AZACTAM 1GM IVPB [id number]. DC IV VIBRAMYCIN Objective - Vital Signs/Intake and Output Vital Signs (last 24 hours): Temp Pulse Resp BP Pulse Ox 97.9 F 66 18 125/65 100 06/02/18 15:00 06/02/18 15:03 06/02/18 15:00 06/02/18 15:00 06/02/18 15:00 Intake and Output: 06/02/18 06/03/18 18:59 07:59 Intake Total 750 Balance 750 - Medications Medications: Current Medications Acetaminophen (Tylenol 325mg Tab) 650 mg PO BID PRN PRN Reason: Pain, moderate (4-7) Last Admin: 05/31/18 13:33 Dose: 650 mg Albuterol/Ipratropium (Duoneb 3 Mg/0.5 Mg (3 Ml) Ud) 3 ml INH RQ6 [facility] Last Admin: 06/02/18 19:50 Dose: 3 ml Alprazolam (Xanax) 0.5 mg PO BID PRN PRN Reason: Anxiety Apixaban (Eliquis) 2.5 mg PO Q12 [facility] Last Admin: 06/02/18 21:35 Dose: 2.5 mg Digoxin (Digoxin) 0.125 mg PO DAILY [facility] Last Admin: 06/02/18 09:41 Dose: 0.125 mg Docusate Sodium (Colace) 100 mg PO TID [facility] Last Admin: 06/02/18 19:32 Dose: 100 mg Famotidine (Pepcid) 20 mg PO DAILY [facility] Last Admin: 06/02/18 09:42 Dose: 20 mg Furosemide (Lasix) 40 mg PO DAILY [facility] Last Admin: 06/02/18 09:42 Dose: 40 mg Home Med (Patient's Own Medication) 1 tab PO BID [facility] Last Admin: 06/02/18 18:21 Dose: 1 tab Home Med (Patient's Own Control Medication) 1 tab PO HS [facility] Last Admin: 06/02/18 21:35 Dose: 1 tab Aztreonam 1 gm/ Sodium (Chloride) 100 mls @ 100 mls/hr IVPB Q12H [facility]; Protocol Last Admin: 06/02/18 13:24 Dose: 100 mls/hr Aztreonam 1 gm/ Sodium (Chloride) 100 mls @ 2 mls/hr IVPB ONCE ONE Stop: 06/04/18 00:59 Last Admin: 06/02/18 00:23 Dose: 2 mls/hr Metoprolol Succinate (Toprol Xl) 25 mg PO DAILY [facility] Last Admin: 06/02/18 09:41 Dose: 25 mg Saccharomyces Boulardii (Florastor) 250 mg PO TID [facility] Last Admin: 06/02/18 18:21 Dose: 250 mg - Labs Labs: 06/02/18 19:17 06/02/18 19:17 PT 15.8 SECONDS (9.7-12.2) H 05/28/18 11:52 INR 1.4 05/28/18 11:52 APTT 33 SECONDS (21-34) D 05/28/18 11:52 - Constitutional Appears: No Acute Distress - Head Exam Head Exam: NORMAL INSPECTION - Eye Exam Eye Exam: EOMI, PERRL - ENT Exam ENT Exam: Normal Oropharynx - Neck Exam Neck Exam: Normal Inspection - Respiratory Exam Respiratory Exam: Rales (b/l basilar rales) - Cardiovascular Exam Cardiovascular Exam: REGULAR RHYTHM, +S1, +S2 - GI/Abdominal Exam GI & Abdominal Exam: Soft, Normal Bowel Sounds. absent: Tenderness - Extremities Exam Extremities Exam: Normal Capillary Refill, Pedal Edema. absent: Calf Tenderness - Neurological Exam Neurological Exam: Awake, CN II-XII Intact, Oriented x3, Reflexes Normal - Psychiatric Exam Psychiatric exam: Normal Mood - Skin Skin Exam: Normal Color, Warm Assessment and Plan (1) UTI (urinary tract infection) with pyuria Status: Acute (2) Hematuria Status: Acute (3) CHF (congestive heart failure) Status: Acute (4) A-fib Status: Acute (5) H/O mitral valve repair Status: Acute (6) Pulmonary hypertension Status: Acute - Assessment and Plan (Free Text) Plan: CONTINUE IV AZACTAM 1GM IVPB Q 12HRLY AND WATCH CLOSELY FOR ANY REACTIONS. 06/01/18 DC IV VIBRAMYCIN 100 MG iv PIGGYBACK EVERY 12 HOURLY. 05/31/18 -06/02/18 WILL REPEAT CLEAN CATCH UA AND URINE CULTURE MONDAY. fOLLOW-UP RENAL FUNCTIONS CLOSELY.
[2018-06-03] MEDS: Albuterol-Ipratrop 3 mg / 0.5 (3 ml) UD INH SCH ×4 (01:12→19:24)
[2018-06-03] MEDS: Saccharomyces Boulardi 250 mg Cap PO SCH ×3 (09:56→18:09)
[2018-06-03] MEDS: Digoxin 125 mcg (0.125 mg) Tab PO SCH (09:56)
[2018-06-03] MEDS: Metoprolol Succinate 25 mg XL Tab PO SCH (09:56)
[2018-06-03] MEDS: SILDENAFIL CITRATE 20 MG PO SCH ×2 (09:57→18:09)
--- NOTE | 2018-06-03 11:57 | CP.PCM.PN ---
Subjective - Date & Time of Evaluation Date of Evaluation: 06/02/18 Time of Evaluation: 16:20 - Subjective Subjective: Patient seen and evaluated Improved breathing but not completely resolved Hematuria resolved Review Of Systems Constitutional: Negative for: Fever, Chills Gastrointestinal: Negative for: Abdominal Pain Genitourinary: Positive for: Hematuria. Negative for: Vaginal Discharge, Vaginal Bleeding Physical Exam - Physical Exam Appears: Non-toxic, No Acute Distress Skin: Normal Color, Warm, Dry, Ecchymosis (to left lateral hand and left forearm ) Head: Atraumatic, Normacephalic Eye(s): bilateral: Normal Inspection Oral Mucosa: Moist Neck: Supple Chest: Symmetrical, No Deformity, No Tenderness Cardiovascular: Rhythm Regular, No Murmur Respiratory: No Rales, No Rhonchi, Wheezing (inspiratory, bilaterally ) Gastrointestinal/Abdominal: Soft, No Tenderness, No Guarding, No Rebound Extremity: Normal ROM, Capillary Refill (less than 2 seconds ), Other (pitting edema bilaterally, left>right) Pulses: Left Dorsalis Pedis: Normal, Right Dorsalis Pedis: Normal Neurological/Psych: Oriented x3, Normal Speech, Normal Cognition Assessment & Plan - Assessment and Plan (Free Text) Assessment: Impression: Shortness of breath Severe Pulmonary HTN Hx MV repair O2/BiPAP and Lasix as needed Likely benefit from Pulm HTN clinic Objective - Vital Signs/Intake and Output Vital Signs (last 24 hours): Temp Pulse Resp BP Pulse Ox 97.8 F 62 20 118/66 98 06/03/18 07:00 06/03/18 08:55 06/03/18 07:00 06/03/18 09:57 06/03/18 07:00 Intake and Output: 06/03/18 06/03/18 06:59 18:59 Intake Total Balance - Medications Medications: Current Medications Acetaminophen (Tylenol 325mg Tab) 650 mg PO BID PRN PRN Reason: Pain, moderate (4-7) Last Admin: 05/31/18 13:33 Dose: 650 mg Albuterol/Ipratropium (Duoneb 3 Mg/0.5 Mg (3 Ml) Ud) 3 ml INH RQ6 [facility] Last Admin: 06/03/18 07:35 Dose: 3 ml Alprazolam (Xanax) 0.5 mg PO BID PRN PRN Reason: Anxiety Last Admin: 06/03/18 11:45 Dose: 0.5 mg Apixaban (Eliquis) 2.5 mg PO Q12 [facility] Last Admin: 06/03/18 09:56 Dose: 2.5 mg Digoxin (Digoxin) 0.125 mg PO DAILY [facility] Last Admin: 06/03/18 09:56 Dose: 0.125 mg Docusate Sodium (Colace) 100 mg PO TID [facility] Last Admin: 06/03/18 09:56 Dose: 100 mg Famotidine (Pepcid) 20 mg PO DAILY [facility] Last Admin: 06/03/18 09:56 Dose: 20 mg Furosemide (Lasix) 40 mg PO DAILY [facility] Last Admin: 06/03/18 09:57 Dose: 40 mg Home Med (Patient's Own Medication) 1 tab PO BID [facility] Last Admin: 06/03/18 09:57 Dose: 1 tab Home Med (Patient's Own Control Medication) 1 tab PO HS [facility] Last Admin: 06/02/18 21:35 Dose: 1 tab Aztreonam 1 gm/ Sodium (Chloride) 100 mls @ 100 mls/hr IVPB Q12H [facility]; Protocol Last Admin: 06/02/18 23:48 Dose: 100 mls/hr Aztreonam 1 gm/ Sodium (Chloride) 100 mls @ 2 mls/hr IVPB ONCE ONE Stop: 06/04/18 00:59 Last Admin: 06/02/18 00:23 Dose: 2 mls/hr Metoprolol Succinate (Toprol Xl) 25 mg PO DAILY [facility] Last Admin: 06/03/18 09:56 Dose: 25 mg Saccharomyces Boulardii (Florastor) 250 mg PO TID [facility] Last Admin: 06/03/18 09:56 Dose: 250 mg - Labs Labs: 06/02/18 19:17 06/02/18 19:17 PT 15.8 SECONDS (9.7-12.2) H 05/28/18 11:52 INR 1.4 05/28/18 11:52 APTT 33 SECONDS (21-34) D 05/28/18 11:52
[2018-06-03] MEDS: Aztreonam 1 GM in Sodium Chloride 0.9% 100 ML IVPB SCH (13:23)
--- NOTE | 2018-06-03 17:04 | CP.PCM.PN ---
Subjective - Date & Time of Evaluation Date of Evaluation: 06/03/18 Time of Evaluation: 17:04 - Subjective Subjective: AFEBRILE , NO NEW COMPLAINTS, EXERTIONAL DYSPNEA LABS; RENAL US ; 05/28 NOTED REVIEWED. REPEAT URINE CULTURE +VE E. COLI ? COLONIZATION VS REAL RENAL FUNCTION IMPROVING. TOLERATING IV AZACTAM ( NEW ABX PLACED 06/01/18 ) DISCUSSED WITH MICRO- E. COLI S -AZACTAM Objective - Vital Signs/Intake and Output Vital Signs (last 24 hours): Temp Pulse Resp BP Pulse Ox 97.8 F 80 20 125/66 100 06/03/18 15:00 06/03/18 15:00 06/03/18 15:00 06/03/18 15:00 06/03/18 15:00 Intake and Output: 06/03/18 06/03/18 06:59 18:59 Intake Total 700 Balance 700 - Medications Medications: Current Medications Acetaminophen (Tylenol 325mg Tab) 650 mg PO BID PRN PRN Reason: Pain, moderate (4-7) Last Admin: 05/31/18 13:33 Dose: 650 mg Albuterol/Ipratropium (Duoneb 3 Mg/0.5 Mg (3 Ml) Ud) 3 ml INH RQ6 [facility] Last Admin: 06/03/18 13:40 Dose: 3 ml Alprazolam (Xanax) 0.5 mg PO BID PRN PRN Reason: Anxiety Last Admin: 06/03/18 11:45 Dose: 0.5 mg Apixaban (Eliquis) 2.5 mg PO Q12 [facility] Last Admin: 06/03/18 09:56 Dose: 2.5 mg Digoxin (Digoxin) 0.125 mg PO DAILY [facility] Last Admin: 06/03/18 09:56 Dose: 0.125 mg Docusate Sodium (Colace) 100 mg PO TID [facility] Last Admin: 06/03/18 13:26 Dose: 100 mg Famotidine (Pepcid) 20 mg PO DAILY [facility] Last Admin: 06/03/18 09:56 Dose: 20 mg Furosemide (Lasix) 40 mg PO DAILY [facility] Last Admin: 06/03/18 09:57 Dose: 40 mg Home Med (Patient's Own Medication) 1 tab PO BID [facility] Last Admin: 06/03/18 09:57 Dose: 1 tab Home Med (Patient's Own Control Medication) 1 tab PO HS [facility] Last Admin: 06/02/18 21:35 Dose: 1 tab Aztreonam 1 gm/ Sodium (Chloride) 100 mls @ 100 mls/hr IVPB Q12H [facility]; Protocol Last Admin: 06/03/18 13:23 Dose: 100 mls/hr Aztreonam 1 gm/ Sodium (Chloride) 100 mls @ 2 mls/hr IVPB ONCE ONE Stop: 06/04/18 00:59 Last Admin: 06/02/18 00:23 Dose: 2 mls/hr Metoprolol Succinate (Toprol Xl) 25 mg PO DAILY [facility] Last Admin: 06/03/18 09:56 Dose: 25 mg Saccharomyces Boulardii (Florastor) 250 mg PO TID [facility] Last Admin: 06/03/18 13:22 Dose: 250 mg - Labs Labs: 06/02/18 19:17 06/02/18 19:17 PT 15.8 SECONDS (9.7-12.2) H 05/28/18 11:52 INR 1.4 05/28/18 11:52 APTT 33 SECONDS (21-34) D 05/28/18 11:52 - Constitutional Appears: No Acute Distress - Head Exam Head Exam: NORMAL INSPECTION - Eye Exam Eye Exam: EOMI, PERRL - ENT Exam ENT Exam: Normal Oropharynx - Neck Exam Neck Exam: Normal Inspection - Respiratory Exam Respiratory Exam: Rales (BASILAR RALES), NORMAL BREATHING PATTERN - Cardiovascular Exam Cardiovascular Exam: REGULAR RHYTHM, +S1, +S2 - GI/Abdominal Exam GI & Abdominal Exam: Soft, Normal Bowel Sounds - Extremities Exam Extremities Exam: Normal Capillary Refill, Pedal Edema (1+). absent: Calf Tenderness, Tenderness - Neurological Exam Neurological Exam: Awake, CN II-XII Intact, Oriented x3, Reflexes Normal - Psychiatric Exam Psychiatric exam: Normal Mood - Skin Skin Exam: Normal Color, Warm Assessment and Plan (1) UTI (urinary tract infection) with pyuria Status: Acute (2) Hematuria Status: Acute (3) CHF (congestive heart failure) Status: Acute (4) A-fib Status: Acute (5) H/O mitral valve repair Status: Acute (6) Pulmonary hypertension Status: Acute - Assessment and Plan (Free Text) Plan: CONTINUE IV AZACTAM 1GM IVPB Q 12HRLY AND WATCH CLOSELY FOR ANY REACTIONS. 06/01/18 WILL REPEAT CLEAN CATCH UA AND URINE CULTURE MONDAY. fOLLOW-UP RENAL FUNCTIONS CLOSELY. DIURETICS PER CARDIO/PMD.
--- NOTE | 2018-06-03 20:46 | CP.PCM.PN ---
Subjective - Date & Time of Evaluation Date of Evaluation: 06/03/18 Time of Evaluation: 16:30 - Subjective Subjective: Patient seen and evaluated Exertional dyspnea Review Of Systems Constitutional: Negative for: Fever, Chills Gastrointestinal: Negative for: Abdominal Pain Genitourinary: Positive for: Hematuria. Negative for: Vaginal Discharge, Vaginal Bleeding Physical Exam - Physical Exam Appears: Non-toxic, No Acute Distress Skin: Normal Color, Warm, Dry, Ecchymosis (to left lateral hand and left forearm ) Head: Atraumatic, Normacephalic Eye(s): bilateral: Normal Inspection Oral Mucosa: Moist Neck: Supple Chest: Symmetrical, No Deformity, No Tenderness Cardiovascular: Rhythm Regular, No Murmur Respiratory: No Rales, No Rhonchi, Wheezing (inspiratory, bilaterally ) Gastrointestinal/Abdominal: Soft, No Tenderness, No Guarding, No Rebound Extremity: Normal ROM, Capillary Refill (less than 2 seconds ), Other (pitting edema bilaterally, left>right) Pulses: Left Dorsalis Pedis: Normal, Right Dorsalis Pedis: Normal Neurological/Psych: Oriented x3, Normal Speech, Normal Cognition Assessment & Plan - Assessment and Plan (Free Text) Assessment: Impression: Shortness of breath Severe Pulmonary HTN Hx MV repair O2/BiPAP and Lasix as needed Likely benefit from Pulm HTN clinic Objective - Vital Signs/Intake and Output Vital Signs (last 24 hours): Temp Pulse Resp BP Pulse Ox 97.8 F 80 20 125/66 100 06/03/18 15:00 06/03/18 15:00 06/03/18 15:00 06/03/18 15:00 06/03/18 15:00 Intake and Output: 06/03/18 06/04/18 18:59 06:59 Intake Total 700 Balance 700 - Medications Medications: Current Medications Acetaminophen (Tylenol 325mg Tab) 650 mg PO BID PRN PRN Reason: Pain, moderate (4-7) Last Admin: 05/31/18 13:33 Dose: 650 mg Albuterol/Ipratropium (Duoneb 3 Mg/0.5 Mg (3 Ml) Ud) 3 ml INH RQ6 [facility] Last Admin: 06/03/18 19:24 Dose: 3 ml Alprazolam (Xanax) 0.5 mg PO BID PRN PRN Reason: Anxiety Last Admin: 06/03/18 11:45 Dose: 0.5 mg Apixaban (Eliquis) 2.5 mg PO Q12 [facility] Last Admin: 06/03/18 09:56 Dose: 2.5 mg Digoxin (Digoxin) 0.125 mg PO DAILY [facility] Last Admin: 06/03/18 09:56 Dose: 0.125 mg Docusate Sodium (Colace) 100 mg PO TID [facility] Last Admin: 06/03/18 18:09 Dose: 100 mg Famotidine (Pepcid) 20 mg PO DAILY [facility] Last Admin: 06/03/18 09:56 Dose: 20 mg Furosemide (Lasix) 40 mg PO DAILY [facility] Last Admin: 06/03/18 09:57 Dose: 40 mg Home Med (Patient's Own Medication) 1 tab PO BID [facility] Last Admin: 06/03/18 18:09 Dose: 1 tab Home Med (Patient's Own Control Medication) 1 tab PO HS [facility] Last Admin: 06/02/18 21:35 Dose: 1 tab Aztreonam 1 gm/ Sodium (Chloride) 100 mls @ 100 mls/hr IVPB Q12H [facility]; Protocol Last Admin: 06/03/18 13:23 Dose: 100 mls/hr Aztreonam 1 gm/ Sodium (Chloride) 100 mls @ 2 mls/hr IVPB ONCE ONE Stop: 06/04/18 00:59 Last Admin: 06/02/18 00:23 Dose: 2 mls/hr Metoprolol Succinate (Toprol Xl) 25 mg PO DAILY [facility] Last Admin: 06/03/18 09:56 Dose: 25 mg Saccharomyces Boulardii (Florastor) 250 mg PO TID [facility] Last Admin: 06/03/18 18:09 Dose: 250 mg - Labs Labs: 06/02/18 19:17 06/02/18 19:17 PT 15.8 SECONDS (9.7-12.2) H 05/28/18 11:52 INR 1.4 05/28/18 11:52 APTT 33 SECONDS (21-34) D 05/28/18 11:52
[2018-06-03] MEDS: TEMAZEPAM 7.5MG PO SCH (21:53)
[2018-06-04] MEDS: Albuterol-Ipratrop 3 mg / 0.5 (3 ml) UD INH SCH ×4 (01:16→19:17)
[2018-06-04] MEDS: Digoxin 125 mcg (0.125 mg) Tab PO SCH (09:15)
[2018-06-04] MEDS: Saccharomyces Boulardi 250 mg Cap PO SCH ×3 (09:17→17:44)
[2018-06-04] MEDS: SILDENAFIL CITRATE 20 MG PO SCH ×2 (09:17→17:44)
[2018-06-04] MEDS: Metoprolol Succinate 25 mg XL Tab PO SCH (09:17)
[2018-06-04 09:23] LABS: SQUAMOUS EPITHIAL < 1 /hpf (0-5); URINE BACTERIA RARE (<OCC); URINE BILIRUBIN NEGATIVE (NEGATIVE); URINE BLOOD 1+ (NEGATIVE); URINE CLARITY Hazy (Clear); URINE COLOR Yellow (YELLOW); URINE GLUCOSE (UA) NORMAL (Normal); URINE LEUKOCYTE ESTERASE TRACE Leu/uL (Negative); URINE PROTEIN 1+ mg/dL (NEGATIVE); URINE UROBILINOGEN NORMAL mg/dL (0.2-1.0)
--- NOTE | 2018-06-04 13:03 | CP.PCM.PN ---
Subjective - Date & Time of Evaluation Date of Evaluation: 06/04/18 Time of Evaluation: 13:03 - Subjective Subjective: AFEBRILE, C/O ITCHING NO RASH NOTED. DISCUSSED WITH SON, WILL GIVE BENADRYL FOR ITCHING /AND OBSERVE CLOSELY. LABS ; REVIEWED. Objective - Vital Signs/Intake and Output Vital Signs (last 24 hours): Temp Pulse Resp BP Pulse Ox 97.5 F L 60 20 148/80 100 06/04/18 08:07 06/04/18 11:51 06/04/18 08:07 06/04/18 09:16 06/04/18 08:07 - Medications Medications: Current Medications Acetaminophen (Tylenol 325mg Tab) 650 mg PO BID PRN PRN Reason: Pain, moderate (4-7) Last Admin: 05/31/18 13:33 Dose: 650 mg Albuterol/Ipratropium (Duoneb 3 Mg/0.5 Mg (3 Ml) Ud) 3 ml INH RQ6 [facility] Last Admin: 06/04/18 07:37 Dose: 3 ml Alprazolam (Xanax) 0.5 mg PO BID PRN PRN Reason: Anxiety Last Admin: 06/04/18 09:17 Dose: 0.5 mg Apixaban (Eliquis) 2.5 mg PO Q12 [facility] Last Admin: 06/04/18 09:17 Dose: 2.5 mg Digoxin (Digoxin) 0.125 mg PO DAILY [facility] Last Admin: 06/04/18 09:15 Dose: 0.125 mg Docusate Sodium (Colace) 100 mg PO TID [facility] Last Admin: 06/04/18 09:16 Dose: 100 mg Famotidine (Pepcid) 20 mg PO DAILY [facility] Last Admin: 06/04/18 09:17 Dose: 20 mg Furosemide (Lasix) 40 mg PO DAILY [facility] Last Admin: 06/04/18 09:16 Dose: 40 mg Home Med (Patient's Own Medication) 1 tab PO BID [facility] Last Admin: 06/04/18 09:17 Dose: 1 tab Home Med (Patient's Own Control Medication) 1 tab PO HS [facility] Last Admin: 06/03/18 21:53 Dose: 1 tab Aztreonam 1 gm/ Sodium (Chloride) 100 mls @ 100 mls/hr IVPB Q12H [facility]; Protocol Last Admin: 06/04/18 00:00 Dose: 100 mls/hr Metoprolol Succinate (Toprol Xl) 25 mg PO DAILY [facility] Last Admin: 06/04/18 09:17 Dose: 25 mg Saccharomyces Boulardii (Florastor) 250 mg PO TID [facility] Last Admin: 06/04/18 09:17 Dose: 250 mg - Labs Labs: 06/02/18 19:17 06/02/18 19:17 PT 15.8 SECONDS (9.7-12.2) H 05/28/18 11:52 INR 1.4 05/28/18 11:52 APTT 33 SECONDS (21-34) D 05/28/18 11:52 - Constitutional Appears: No Acute Distress - Head Exam Head Exam: NORMAL INSPECTION - Eye Exam Eye Exam: EOMI, PERRL - ENT Exam ENT Exam: Normal Oropharynx - Neck Exam Neck Exam: Normal Inspection - Respiratory Exam Respiratory Exam: Decreased Breath Sounds, NORMAL BREATHING PATTERN - Cardiovascular Exam Cardiovascular Exam: REGULAR RHYTHM, +S1, +S2 - GI/Abdominal Exam GI & Abdominal Exam: Soft, Tenderness (SUPRAPUBIC TENDERNESS), Normal Bowel Beatrice nds - Extremities Exam Extremities Exam: Normal Capillary Refill, Pedal Edema. absent: Calf Tenderness - Back Exam Back Exam: absent: CVA tenderness (L), CVA tenderness (R) - Neurological Exam Neurological Exam: Alert, Awake, CN II-XII Intact, Normal Gait, Oriented x3, Reflexes Normal - Psychiatric Exam Psychiatric exam: Normal Mood - Skin Skin Exam: Normal Color, Warm Assessment and Plan (1) UTI (urinary tract infection) with pyuria Status: Acute (2) Hematuria Status: Acute (3) CHF (congestive heart failure) Status: Acute (4) A-fib Status: Acute (5) H/O mitral valve repair Status: Acute (6) Pulmonary hypertension Status: Acute - Assessment and Plan (Free Text) Plan: CONTINUE IV AZACTAM 1GM IVPB Q 12[facility] AND WATCH CLOSELY FOR ANY REACTIONS. 06/01/18 ADD BENADRYL 50MG PO 30MIN PRIOR TO EACH DOSE OF IV AZACTAM. REPEAT CLEAN CATCH UA AND URINE CULTURE -P fOLLOW-UP RENAL FUNCTIONS CLOSELY. DIURETICS PER CARDIO/PMD.
--- NOTE | 2018-06-04 13:20 | VASCLAB ---
Date of service: 06/04/2018 PROCEDURE: Lower Extremity Venous Duplex Exam. HISTORY: DVT PRIORS: None. TECHNIQUE: Bilateral common femoral, femoral, popliteal and posterior tibial, peroneal and great saphenous veins were evaluated. Flow was assessed with color Doppler, compressibility, assessment of phasic flow and augmentation response. Report prepared by CHELLE Limon FINDINGS: RIGHT: 1. Common Femoral Vein: 1.1. Compressibility - Fully compressible: Thrombus - None : Flow - Phasic: Augmentation -Normal: Reflux - None. 2. Femoral Vein: 2.1. Compressibility - Fully compressible: Thrombus - None : Flow - Phasic: Augmentation -Normal: Reflux - None. 3. Popliteal Vein: 3.1. Compressibility - Fully compressible: Thrombus - None : Flow - Phasic: Augmentation -Normal: Reflux - None. 4. Posterior Tibial Vein: 4.1. Compressibility - Fully compressible: Thrombus - None: Flow - Phasic: Augmentation -Normal: Reflux - None. 5. Peroneal Vein: 5.1. Compressibility - Fully compressible: Thrombus - None: Flow - Phasic: Augmentation -Normal: Reflux - None. 6. Great Saphenous Vein: 6.1. Compressibility - Fully compressible: Thrombus - None: Flow - Phasic: Augmentation - Normal: Reflux - None. LEFT: 1. Common Femoral Vein: 1.1. Compressibility - Fully compressible: Thrombus - None: Flow - Phasic: Augmentation -Normal: Reflux - None. 2. Femoral Vein: 2.1. Compressibility - Fully compressible: Thrombus - None: Flow - Phasic: Augmentation -Normal: Reflux - None. 3. Popliteal Vein: 3.1. Compressibility - Fully compressible: Thrombus - None : Flow - Phasic: Augmentation -Normal: Reflux - None. 4. Posterior Tibial Vein: 4.1. Compressibility - Fully compressible: Thrombus - None: Flow - Phasic: Augmentation -Normal: Reflux - None. 5. Peroneal Vein: 5.1. Compressibility - Fully compressible: Thrombus - None: Flow - Phasic: Augmentation -Normal: Reflux - None. 6. Great Saphenous Vein: 6.1. Compressibility - Fully compressible: Thrombus - None: Flow - Phasic: Augmentation - Normal: Reflux - None. OTHER FINDINGS: Pulsatile venous flow was noted bilaterally. IMPRESSION: Right: No evidence of deep or superficial vein thrombosis of the right lower extremity. Normal valve function noted of the right side. Left: No evidence of deep or superficial vein thrombosis of the left lower extremity. Normal valve function noted of the left side.
[2018-06-04] MEDS: Aztreonam 1 GM in Sodium Chloride 0.9% 100 ML IVPB SCH ×2 (13:54)
--- NOTE | 2018-06-04 16:41 | PN ---
DATE: 06/04/2018 SUBJECTIVE: The patient is seen. Still very anxious, somatic. Stating she is not sleeping. The patient was taking Restoril. The patient also was earlier prescribed Xanax 0.5 mg at bedtime but was discontinued by Dr. Cruz. The patient only is on Xanax 0.5 b.i.d. p.r.n. Continues to be very anxious and preoccupied by her medical problems. She seems to respond better with Xanax p.r.n. PHYSICAL EXAMINATION: GENERAL: The patient seen, was sitting. Still very anxious, somatic, oriented x3. She stated she cannot sleep. VITAL SIGNS: Temperature is 97.5, pulse 63, blood pressure 148/80, respirations 20, oxygen saturation 100%. SKIN: No diaphoresis. HEENT: No headache. No dizziness. NECK: Supple. RESPIRATORY: No dyspnea. The patient sleeps with BiPAP. CARDIOVASCULAR: No chest pain. GASTROINTESTINAL: She is eating well. EXTREMITIES: The patient is moving extremities. MUSCULOSKELETAL: Feels weak. NEUROLOGIC: Alert, oriented x3 but extremely somatic. GENITOURINARY: No urinary problems. MENTAL STATUS EXAMINATION: Elderly female, obese. Oriented x3. Anxious, somatic. Speech is spontaneous. Conversing in [place] and [place]. Affect is reactive. Thought process coherent. Thought content preoccupied by her chronic insomnia. The patient has chronic insomnia aggravated by her anxiety problem. No psychosis. No suicidal ideation. Attention and memory seem to be fair. Insight and judgment fair. Impulse control is fair. 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 PLAN AND RECOMMENDATION: The patient is seen. Meds reviewed. May continue the Xanax 0.5 mg p.o. b.i.d. p.r.n. I have told the nurse that if the patient gets very nervous at night, they might give some Xanax p.r.n. For now, we will hold off any other psychiatric medication. Continue treatment plan as outlined. Mani Ruvalcaba MD
--- NOTE | 2018-06-04 19:36 | PCM.URO ---
Urology Progress Note - General General: Tolerating Diet - Subjective Abdominal Pain: Yes (mild, suprpubic) Flank Pain: No Nausea: No Vomiting: No Voiding Well: No Hematuria: Yes (hematuria yesterday, now clear) Good Stream: No Weak Stream: No Dsypnea: Yes Chest Pain: No Fever & Chills: No - Objective Lab Results Last 24 Hours: Laboratory Results - last 24 hr 06/04/18 09:07 Urine Color Yellow Urine Clarity Hazy Urine pH 5.0 Ur Specific Elizabeth 1.014 Urine Protein 1+ H Urine Glucose (UA) Normal Urine Ketones Negative Urine Blood 1+ H Urine Nitrate Negative Urine Bilirubin Negative Urine Urobilinogen Normal Ur Leukocyte Esterase Trace Urine WBC (Auto) 12 H Urine RBC (Auto) 19 H Ur Squamous Epith Cells < 1 Urine Bacteria Rare Intake & Output: Intake & Output 06/04/18 06/04/18 06/05/18 06:59 18:59 06:59 Intake Total 1100 Balance 1100 Intake: Intake, IV Amount 100 Left Forearm 100 Oral 1000 Other: # Voids Urine, Voided 4 Vital Signs: Vital Signs - 24 hr 06/03/18 06/04/18 06/04/18 23:25 00:16 02:00 Temperature 97.7 F Pulse Rate 65 65 65 Respiratory 20 Rate Blood Pressure 123/60 O2 Sat by Pulse 95 Oximetry 06/04/18 06/04/18 06/04/18 07:38 08:04 08:07 Temperature 97.5 F L Pulse Rate 64 61 63 Respiratory 20 Rate Blood Pressure 148/80 O2 Sat by Pulse 100 Oximetry 06/04/18 06/04/18 06/04/18 09:16 11:51 15:34 Temperature Pulse Rate 60 63 Respiratory Rate Blood Pressure 148/80 O2 Sat by Pulse Oximetry 06/04/18 16:25 Temperature 97.2 F L Pulse Rate 60 Respiratory 20 Rate Blood Pressure 126/81 O2 Sat by Pulse 100 Oximetry - Physical Exam Abdominal Exam: Soft, Non-Tender, Non-Distended Back: No CVA Tenderness - Plan Additional Information: IMP: UTI. hematuria. Pulmonary hypertension. P: will discuss re possible cystoscopy. antibiotic rx - Date & Time of Note Date: 06/04/18 Time: 09:05
[2018-06-04] MEDS: TEMAZEPAM 7.5MG PO SCH (21:41)
--- NOTE | 2018-06-04 22:53 | CP.PCM.PN ---
Subjective - Date & Time of Evaluation Date of Evaluation: 06/04/18 Time of Evaluation: 22:53 - Subjective Subjective: Patient is comfortable. Still having blood in the urine Mild suprapubic discomfort and urinary discomfort noted. Patient denies any nausea, no vomiting. Last night the patient was not able to sleep well. On examination: Vital signs are stable. Chest good air entry Heart sounds are regular Abdomen soft. Nontender Echocardiogram I reviewed with the sweep press operator. Patient has a severe high elevated pulmonary hypertension, more than 110. And also echocardiogram showing evidence of lesion of the ventricular septum and LV the left ventricle. Assessment and recommendation: Patient is a 82-year-old female with a history of mitral valve repair, status post ablation for A. fib, hypertension, hypercholesterolemia, pulmonary fibrosis associated with severe pulmonary hypertension and sleep apnea. Patient is using home oxygen, also as he is using BiPAP. Currently started on sildenafil citrate. We will continue the current treatment. Lasix as tolerated. Follow-up the patient Less discomfort. DVT study for the legs is negative. Currently on Eliquis 2.5 mg twice daily. We will continue the current treatment. Recommended physical therapy. And will follow the patient Objective - Vital Signs/Intake and Output Vital Signs (last 24 hours): Temp Pulse Resp BP Pulse Ox 97.2 F L 60 20 126/81 100 06/04/18 16:25 06/04/18 16:25 06/04/18 16:25 06/04/18 16:25 06/04/18 16:25 Intake and Output: 06/04/18 06/05/18 18:59 06:59 Intake Total 1100 Balance 1100 - Medications Medications: Current Medications Acetaminophen (Tylenol 325mg Tab) 650 mg PO BID PRN PRN Reason: Pain, moderate (4-7) Last Admin: 05/31/18 13:33 Dose: 650 mg Albuterol/Ipratropium (Duoneb 3 Mg/0.5 Mg (3 Ml) Ud) 3 ml INH RQ6 [facility] Last Admin: 06/04/18 19:17 Dose: 3 ml Alprazolam (Xanax) 0.5 mg PO BID PRN PRN Reason: Anxiety Last Admin: 06/04/18 17:44 Dose: 0.5 mg Apixaban (Eliquis) 2.5 mg PO Q12 [facility] Last Admin: 06/04/18 21:40 Dose: 2.5 mg Digoxin (Digoxin) 0.125 mg PO DAILY [facility] Last Admin: 06/04/18 09:15 Dose: 0.125 mg Diphenhydramine HCl (Benadryl) 50 mg PO BID PRN PRN Reason: Allergy symptoms Docusate Sodium (Colace) 100 mg PO TID [facility] Last Admin: 06/04/18 17:44 Dose: 100 mg Famotidine (Pepcid) 20 mg PO DAILY [facility] Last Admin: 06/04/18 09:17 Dose: 20 mg Furosemide (Lasix) 40 mg PO DAILY [facility] Last Admin: 06/04/18 09:16 Dose: 40 mg Home Med (Patient's Own Medication) 1 tab PO BID [facility] Last Admin: 06/04/18 17:44 Dose: 1 tab Home Med (Patient's Own Control Medication) 1 tab PO HS [facility] Last Admin: 06/04/18 21:41 Dose: 1 tab Aztreonam 1 gm/ Sodium (Chloride) 100 mls @ 100 mls/hr IVPB Q12H [facility]; Protocol Last Admin: 06/04/18 13:54 Dose: 100 mls/hr Metoprolol Succinate (Toprol Xl) 25 mg PO DAILY [facility] Last Admin: 06/04/18 09:17 Dose: 25 mg Saccharomyces Boulardii (Florastor) 250 mg PO TID [facility] Last Admin: 06/04/18 17:44 Dose: 250 mg - Labs Labs: 06/02/18 19:17 06/02/18 19:17 PT 15.8 SECONDS (9.7-12.2) H 05/28/18 11:52 INR 1.4 05/28/18 11:52 APTT 33 SECONDS (21-34) D 05/28/18 11:52
--- NOTE | 2018-06-04 22:53 | CP.PCM.PN ---
Subjective - Date & Time of Evaluation Date of Evaluation: 06/02/18 Time of Evaluation: 22:53 - Subjective Subjective: Patient is comfortable. Still having blood in the urine Mild suprapubic discomfort and urinary discomfort noted. Patient denies any nausea, no vomiting. Last night the patient was not able to sleep well. On examination: Vital signs are stable. Chest good air entry Heart sounds are regular Abdomen soft. Nontender Echocardiogram I reviewed with the unhairer. Patient has a severe high elevated pulmonary hypertension, more than 110. And also echocardiogram showing evidence of lesion of the ventricular septum and LV the left ventricle. Assessment and recommendation: Patient is a 82-year-old female with a history of mitral valve repair, status post ablation for A. fib, hypertension, hypercholesterolemia, pulmonary fibrosis associated with severe pulmonary hypertension and sleep apnea. Patient is using home oxygen, also as he is using BiPAP. Currently started on sildenafil citrate. We will continue the current treatment. Lasix as tolerated. Follow-up the patient Objective - Vital Signs/Intake and Output Vital Signs (last 24 hours): Temp Pulse Resp BP Pulse Ox 97.2 F L 60 20 126/81 100 06/04/18 16:25 06/04/18 16:25 06/04/18 16:25 06/04/18 16:25 06/04/18 16:25 Intake and Output: 06/04/18 06/05/18 18:59 06:59 Intake Total 1100 Balance 1100 - Medications Medications: Current Medications Acetaminophen (Tylenol 325mg Tab) 650 mg PO BID PRN PRN Reason: Pain, moderate (4-7) Last Admin: 05/31/18 13:33 Dose: 650 mg Albuterol/Ipratropium (Duoneb 3 Mg/0.5 Mg (3 Ml) Ud) 3 ml INH RQ6 [facility] Last Admin: 06/04/18 19:17 Dose: 3 ml Alprazolam (Xanax) 0.5 mg PO BID PRN PRN Reason: Anxiety Last Admin: 06/04/18 17:44 Dose: 0.5 mg Apixaban (Eliquis) 2.5 mg PO Q12 [facility] Last Admin: 06/04/18 21:40 Dose: 2.5 mg Digoxin (Digoxin) 0.125 mg PO DAILY [facility] Last Admin: 06/04/18 09:15 Dose: 0.125 mg Diphenhydramine HCl (Benadryl) 50 mg PO BID PRN PRN Reason: Allergy symptoms Docusate Sodium (Colace) 100 mg PO TID [facility] Last Admin: 06/04/18 17:44 Dose: 100 mg Famotidine (Pepcid) 20 mg PO DAILY [facility] Last Admin: 06/04/18 09:17 Dose: 20 mg Furosemide (Lasix) 40 mg PO DAILY [facility] Last Admin: 06/04/18 09:16 Dose: 40 mg Home Med (Patient's Own Medication) 1 tab PO BID [facility] Last Admin: 06/04/18 17:44 Dose: 1 tab Home Med (Patient's Own Control Medication) 1 tab PO HS [facility] Last Admin: 06/04/18 21:41 Dose: 1 tab Aztreonam 1 gm/ Sodium (Chloride) 100 mls @ 100 mls/hr IVPB Q12H [facility]; Protocol Last Admin: 06/04/18 13:54 Dose: 100 mls/hr Metoprolol Succinate (Toprol Xl) 25 mg PO DAILY [facility] Last Admin: 06/04/18 09:17 Dose: 25 mg Saccharomyces Boulardii (Florastor) 250 mg PO TID [facility] Last Admin: 06/04/18 17:44 Dose: 250 mg - Labs Labs: 06/02/18 19:17 06/02/18 19:17 PT 15.8 SECONDS (9.7-12.2) H 05/28/18 11:52 INR 1.4 05/28/18 11:52 APTT 33 SECONDS (21-34) D 05/28/18 11:52
--- NOTE | 2018-06-04 22:53 | CP.PCM.PN ---
Subjective - Date & Time of Evaluation Date of Evaluation: 06/03/18 Time of Evaluation: 22:53 - Subjective Subjective: Patient is comfortable. Still having blood in the urine Mild suprapubic discomfort and urinary discomfort noted. Patient denies any nausea, no vomiting. Last night the patient was not able to sleep well. On examination: Vital signs are stable. Chest good air entry Heart sounds are regular Abdomen soft. Nontender Echocardiogram I reviewed with the mold forms builder. Patient has a severe high elevated pulmonary hypertension, more than 110. And also echocardiogram showing evidence of lesion of the ventricular septum and LV the left ventricle. Assessment and recommendation: Patient is a 82-year-old female with a history of mitral valve repair, status post ablation for A. fib, hypertension, hypercholesterolemia, pulmonary fibrosis associated with severe pulmonary hypertension and sleep apnea. Patient is using home oxygen, also as he is using BiPAP. Currently started on sildenafil citrate. We will continue the current treatment. Lasix as tolerated. Follow-up the patient Urinary tract infection, still having some hematuria, but slight improvement, started on aztreonam by the ID Objective - Vital Signs/Intake and Output Vital Signs (last 24 hours): Temp Pulse Resp BP Pulse Ox 97.2 F L 60 20 126/81 100 06/04/18 16:25 06/04/18 16:25 06/04/18 16:25 06/04/18 16:25 06/04/18 16:25 Intake and Output: 06/04/18 06/05/18 18:59 06:59 Intake Total 1100 Balance 1100 - Medications Medications: Current Medications Acetaminophen (Tylenol 325mg Tab) 650 mg PO BID PRN PRN Reason: Pain, moderate (4-7) Last Admin: 05/31/18 13:33 Dose: 650 mg Albuterol/Ipratropium (Duoneb 3 Mg/0.5 Mg (3 Ml) Ud) 3 ml INH RQ6 [facility] Last Admin: 06/04/18 19:17 Dose: 3 ml Alprazolam (Xanax) 0.5 mg PO BID PRN PRN Reason: Anxiety Last Admin: 06/04/18 17:44 Dose: 0.5 mg Apixaban (Eliquis) 2.5 mg PO Q12 [facility] Last Admin: 06/04/18 21:40 Dose: 2.5 mg Digoxin (Digoxin) 0.125 mg PO DAILY [facility] Last Admin: 06/04/18 09:15 Dose: 0.125 mg Diphenhydramine HCl (Benadryl) 50 mg PO BID PRN PRN Reason: Allergy symptoms Docusate Sodium (Colace) 100 mg PO TID [facility] Last Admin: 06/04/18 17:44 Dose: 100 mg Famotidine (Pepcid) 20 mg PO DAILY [facility] Last Admin: 06/04/18 09:17 Dose: 20 mg Furosemide (Lasix) 40 mg PO DAILY [facility] Last Admin: 06/04/18 09:16 Dose: 40 mg Home Med (Patient's Own Medication) 1 tab PO BID [facility] Last Admin: 06/04/18 17:44 Dose: 1 tab Home Med (Patient's Own Control Medication) 1 tab PO HS [facility] Last Admin: 06/04/18 21:41 Dose: 1 tab Aztreonam 1 gm/ Sodium (Chloride) 100 mls @ 100 mls/hr IVPB Q12H [facility]; Protocol Last Admin: 06/04/18 13:54 Dose: 100 mls/hr Metoprolol Succinate (Toprol Xl) 25 mg PO DAILY [facility] Last Admin: 06/04/18 09:17 Dose: 25 mg Saccharomyces Boulardii (Florastor) 250 mg PO TID [facility] Last Admin: 06/04/18 17:44 Dose: 250 mg - Labs Labs: 06/02/18 19:17 06/02/18 19:17 PT 15.8 SECONDS (9.7-12.2) H 05/28/18 11:52 INR 1.4 05/28/18 11:52 APTT 33 SECONDS (21-34) D 05/28/18 11:52
--- NOTE | 2018-06-05 00:05 | CP.PCM.PN ---
Subjective - Date & Time of Evaluation Date of Evaluation: 06/04/18 Time of Evaluation: 16:40 - Subjective Subjective: Patient seen and evaluated No cardiac events nted Exertional dyspnea Objective - Vital Signs/Intake and Output Vital Signs (last 24 hours): Temp Pulse Resp BP Pulse Ox 97.2 F L 60 20 126/81 100 06/04/18 16:25 06/04/18 16:25 06/04/18 16:25 06/04/18 16:25 06/04/18 16:25 Intake and Output: 06/04/18 06/05/18 18:59 06:59 Intake Total 1100 Balance 1100 - Medications Medications: Current Medications Acetaminophen (Tylenol 325mg Tab) 650 mg PO BID PRN PRN Reason: Pain, moderate (4-7) Last Admin: 05/31/18 13:33 Dose: 650 mg Albuterol/Ipratropium (Duoneb 3 Mg/0.5 Mg (3 Ml) Ud) 3 ml INH RQ6 [facility] Last Admin: 06/04/18 19:17 Dose: 3 ml Alprazolam (Xanax) 0.5 mg PO BID PRN PRN Reason: Anxiety Last Admin: 06/04/18 17:44 Dose: 0.5 mg Apixaban (Eliquis) 2.5 mg PO Q12 [facility] Last Admin: 06/04/18 21:40 Dose: 2.5 mg Digoxin (Digoxin) 0.125 mg PO DAILY [facility] Last Admin: 06/04/18 09:15 Dose: 0.125 mg Diphenhydramine HCl (Benadryl) 50 mg PO Q12 PRN Docusate Sodium (Colace) 100 mg PO TID [facility] Last Admin: 06/04/18 17:44 Dose: 100 mg Famotidine (Pepcid) 20 mg PO DAILY [facility] Last Admin: 06/04/18 09:17 Dose: 20 mg Furosemide (Lasix) 40 mg PO DAILY [facility] Last Admin: 06/04/18 09:16 Dose: 40 mg Home Med (Patient's Own Medication) 1 tab PO BID [facility] Last Admin: 06/04/18 17:44 Dose: 1 tab Home Med (Patient's Own Control Medication) 1 tab PO HS [facility] Last Admin: 06/04/18 21:41 Dose: 1 tab Aztreonam 1 gm/ Sodium (Chloride) 100 mls @ 100 mls/hr IVPB Q12H [facility]; Protocol Last Admin: 06/04/18 13:54 Dose: 100 mls/hr Metoprolol Succinate (Toprol Xl) 25 mg PO DAILY [facility] Last Admin: 06/04/18 09:17 Dose: 25 mg Saccharomyces Boulardii (Florastor) 250 mg PO TID [facility] Last Admin: 06/04/18 17:44 Dose: 250 mg - Labs Labs: 06/02/18 19:17 06/02/18 19:17 PT 15.8 SECONDS (9.7-12.2) H 05/28/18 11:52 INR 1.4 05/28/18 11:52 APTT 33 SECONDS (21-34) D 05/28/18 11:52
[2018-06-05] MEDS: Aztreonam 1 GM in Sodium Chloride 0.9% 100 ML IVPB SCH ×3 (00:56→23:43)
[2018-06-05] MEDS: Albuterol-Ipratrop 3 mg / 0.5 (3 ml) UD INH SCH ×4 (02:43→20:20)
[2018-06-05 08:11] LABS: BASO # 0.1 K/uL (0.0-0.2); BASO % 1.1 % (0.0-2.0); EOS # 1.1 K/uL (0.0-0.7); EOS % 12.9 % (0.0-4.0); HEMOGLOBIN 10.5 g/dL (11.0-16.0); LYMPH # 0.6 K/uL (1.0-4.3); LYMPH % 6.9 % (20.0-40.0); MEAN CELL VOLUME 89.2 fL (81.0-99.0); MEAN CORPUSCULAR HEMOGLOBIN 28.6 pg (27.0-31.0); MEAN CORPUSCULAR HGB CONC 32.1 g/dL (33.0-37.0); MONO # 0.8 K/uL (0.0-0.8); MONO % 9.3 % (0.0-10.0); NEUT % 69.8 % (50.0-75.0); NRBC % 0.2 % (0.0-2.0); PLATELET COUNT 214 K/uL (130-400); RBC 3.67 Mil/uL (3.80-5.20); RED CELL DISTRIBUTION WIDTH 17.2 % (11.5-14.5); WHITE BLOOD COUNT 8.6 K/uL (4.8-10.8)
[2018-06-05 08:29] LABS: ALB/GLOB RATIO 1.2 (1.0-2.1); ALBUMIN 3.8 g/dL (3.5-5.0); CALCIUM 8.8 mg/dl (8.6-10.4)
--- NOTE | 2018-06-05 08:43 | CP.PCM.PN ---
Subjective - Date & Time of Evaluation Date of Evaluation: 06/05/18 Time of Evaluation: 08:42 - Subjective Subjective: Patient last night was trying to take the mask out frequently. But able to sleep slightly better. This morning sitting up comfortably. Urine is clear On examination: Vital signs are stable Chest good air entry Heart sounds are regular Abdomen soft. Pedal edema noted We will give we will start Lasix 20 mg IV. Currently on antibiotic. We will repeat the urinalysis and culture. I also recommended for subacute rehab. Discussed with family as well as social work case management Objective - Vital Signs/Intake and Output Vital Signs (last 24 hours): Temp Pulse Resp BP Pulse Ox 97.7 F 63 20 128/73 97 06/05/18 08:20 06/05/18 08:20 06/05/18 08:20 06/05/18 08:20 06/05/18 08:20 - Medications Medications: Current Medications Acetaminophen (Tylenol 325mg Tab) 650 mg PO BID PRN PRN Reason: Pain, moderate (4-7) Last Admin: 05/31/18 13:33 Dose: 650 mg Albuterol/Ipratropium (Duoneb 3 Mg/0.5 Mg (3 Ml) Ud) 3 ml INH RQ6 [facility] Last Admin: 06/05/18 07:39 Dose: 3 ml Alprazolam (Xanax) 0.5 mg PO BID PRN PRN Reason: Anxiety Last Admin: 06/04/18 17:44 Dose: 0.5 mg Apixaban (Eliquis) 2.5 mg PO Q12 [facility] Last Admin: 06/04/18 21:40 Dose: 2.5 mg Digoxin (Digoxin) 0.125 mg PO DAILY [facility] Last Admin: 06/04/18 09:15 Dose: 0.125 mg Diphenhydramine HCl (Benadryl) 50 mg PO Q12 [facility] Last Admin: 06/05/18 00:19 Dose: 50 mg Docusate Sodium (Colace) 100 mg PO TID [facility] Last Admin: 06/04/18 17:44 Dose: 100 mg Famotidine (Pepcid) 20 mg PO DAILY [facility] Last Admin: 06/04/18 09:17 Dose: 20 mg Furosemide (Lasix) 40 mg PO DAILY [facility] Last Admin: 06/04/18 09:16 Dose: 40 mg Furosemide (Lasix) 20 mg IVP STAT STA Stop: 06/05/18 08:39 Home Med (Patient's Own Medication) 1 tab PO BID [facility] Last Admin: 06/04/18 17:44 Dose: 1 tab Home Med (Patient's Own Control Medication) 1 tab PO HS [facility] Last Admin: 06/04/18 21:41 Dose: 1 tab Aztreonam 1 gm/ Sodium (Chloride) 100 mls @ 100 mls/hr IVPB Q12H [facility]; Protocol Last Admin: 06/05/18 00:56 Dose: 100 mls/hr Metoprolol Succinate (Toprol Xl) 25 mg PO DAILY [facility] Last Admin: 06/04/18 09:17 Dose: 25 mg Saccharomyces Boulardii (Florastor) 250 mg PO TID [facility] Last Admin: 06/04/18 17:44 Dose: 250 mg - Labs Labs: 06/05/18 07:58 06/05/18 07:58 PT 15.8 SECONDS (9.7-12.2) H 05/28/18 11:52 INR 1.4 05/28/18 11:52 APTT 33 SECONDS (21-34) D 05/28/18 11:52
[2018-06-05 08:49] LABS: EOSINOPHIL 10 % (0-4); LYMPHOCYTE 2 % (20-40); MONOCYTE 7 % (0-10); NEUTROPHIL 81 % (50-75); TOTAL CELLS COUNTED 100
[2018-06-05 08:50] LABS: ANISOCYTOSIS SLIGHT; HYPOCHROMIC SLIGHT; OVALOCYTES SLIGHT; PLATELET ESTIMATE NORMAL (NORMAL); POLYCHROMIC SLIGHT; TARGET CELLS SLIGHT
[2018-06-05] MEDS: Saccharomyces Boulardi 250 mg Cap PO SCH ×3 (09:19→17:21)
[2018-06-05] MEDS: Digoxin 125 mcg (0.125 mg) Tab PO SCH (09:19)
[2018-06-05] MEDS: Metoprolol Succinate 25 mg XL Tab PO SCH (09:19)
[2018-06-05] MEDS: SILDENAFIL CITRATE 20 MG PO SCH ×2 (09:20→17:21)
--- NOTE | 2018-06-05 20:45 | PCM.URO ---
Urology Progress Note - Objective Lab Results Last 24 Hours: Laboratory Results - last 24 hr 06/05/18 06/05/18 07:58 07:58 WBC 8.6 RBC 3.67 L Hgb 10.5 L Hct 32.8 L MCV 89.2 MCH 28.6 MCHC 32.1 L RDW 17.2 H Plt Count 214 MPV 9.0 Neut % (Auto) 69.8 Lymph % (Auto) 6.9 L Benson % (Auto) 9.3 Eos % (Auto) 12.9 H Baso % (Auto) 1.1 Neut # (Auto) 6.0 Lymph # (Auto) 0.6 L Benson # (Auto) 0.8 Eos # (Auto) 1.1 H Baso # (Auto) 0.1 Neutrophils % (Manual) 81 H Lymphocytes % (Manual) 2 L Monocytes % (Manual) 7 Eosinophils % (Manual) 10 H Platelet Estimate Normal Polychromasia Slight Hypochromasia (manual) Slight Anisocytosis (manual) Slight Target Cells Slight Ovalocytes Slight Sodium 135 Potassium 4.3 Chloride 100 Carbon Dioxide 26 Anion Gap 13 BUN 24 H Creatinine 1.2 Est GFR ( Amer) 52 Est GFR (Non-Af Amer) 43 Random Glucose 104 D Calcium 8.8 Phosphorus 3.9 Magnesium 2.1 Total Bilirubin 1.9 H AST 41 H D ALT 36 Alkaline Phosphatase 152 H Total Protein 6.9 Albumin 3.8 Globulin 3.1 Albumin/Globulin Ratio 1.2 Intake & Output: Intake & Output 06/05/18 06/05/18 06/06/18 06:59 18:59 06:59 Intake Total 800 Balance 800 Intake: Oral 800 Other: # Voids Urine, Voided 3 Vital Signs: Vital Signs - 24 hr 06/04/18 06/05/18 06/05/18 23:37 00:08 01:00 Temperature 97.5 F L Pulse Rate 62 72 68 Respiratory 20 Rate Blood Pressure 95/59 L O2 Sat by Pulse 100 Oximetry 06/05/18 06/05/18 06/05/18 03:55 08:02 08:20 Temperature 97.7 F Pulse Rate 68 64 63 Respiratory 20 Rate Blood Pressure 128/73 O2 Sat by Pulse 97 Oximetry 06/05/18 06/05/18 06/05/18 09:20 15:00 16:00 Temperature 97.5 F L 97.8 F Pulse Rate 63 63 Respiratory 20 18 Rate Blood Pressure 128/73 127/74 133/57 L O2 Sat by Pulse 100 100 Oximetry - Date & Time of Note Date: 06/05/18 Time: 20:44
[2018-06-05] MEDS: TEMAZEPAM 7.5MG PO SCH (22:55)
--- NOTE | 2018-06-05 23:44 | CP.PCM.PN ---
Subjective - Date & Time of Evaluation Date of Evaluation: 06/05/18 Time of Evaluation: 23:44 - Subjective Subjective: AFEBRILE, COMFORTABLE LYING FLAT. DENIES FURTHER ITCHING . S/P BETHANY PICC LINE 06/05/18 PER PMD. NO iv ACCESS PER RN. TOLERATING IV AZACTAM. ON BENADRYL FOR ITCHING /AND OBSERVE CLOSELY. LABS ; REVIEWED REPEAT URINE CULTURES 06/04/18 NEGATIVE GROWTH Objective - Vital Signs/Intake and Output Vital Signs (last 24 hours): Temp Pulse Resp BP Pulse Ox 97.8 F 63 18 133/57 L 100 06/05/18 16:00 06/05/18 16:00 06/05/18 16:00 06/05/18 16:00 06/05/18 16:00 Intake and Output: 06/05/18 06/06/18 18:59 06:59 Intake Total 800 Balance 800 - Medications Medications: Current Medications Acetaminophen (Tylenol 325mg Tab) 650 mg PO BID PRN PRN Reason: Pain, moderate (4-7) Last Admin: 05/31/18 13:33 Dose: 650 mg Albuterol/Ipratropium (Duoneb 3 Mg/0.5 Mg (3 Ml) Ud) 3 ml INH RQ6 PRN PRN Reason: Shortness of Breath Alprazolam (Xanax) 0.5 mg PO BID PRN PRN Reason: Anxiety Last Admin: 06/05/18 21:23 Dose: 0.5 mg Apixaban (Eliquis) 2.5 mg PO Q12 [facility] Last Admin: 06/05/18 21:23 Dose: 2.5 mg Digoxin (Digoxin) 0.125 mg PO DAILY [facility] Last Admin: 06/05/18 09:19 Dose: 0.125 mg Diphenhydramine HCl (Benadryl) 50 mg PO Q12 [facility] Last Admin: 06/05/18 00:19 Dose: 50 mg Docusate Sodium (Colace) 100 mg PO TID [facility] Last Admin: 06/05/18 17:21 Dose: 100 mg Famotidine (Pepcid) 20 mg PO DAILY [facility] Last Admin: 06/05/18 09:19 Dose: 20 mg Furosemide (Lasix) 40 mg PO DAILY [facility] Last Admin: 06/05/18 09:20 Dose: 40 mg Home Med (Patient's Own Medication) 1 tab PO BID [facility] Last Admin: 06/05/18 17:21 Dose: 1 tab Home Med (Patient's Own Control Medication) 1 tab PO HS [facility] Last Admin: 06/05/18 22:55 Dose: 1 tab Aztreonam 1 gm/ Sodium (Chloride) 100 mls @ 100 mls/hr IVPB Q12H [facility]; Protocol Last Admin: 06/05/18 23:43 Dose: 100 mls/hr Metoprolol Succinate (Toprol Xl) 25 mg PO DAILY [facility] Last Admin: 06/05/18 09:19 Dose: 25 mg Saccharomyces Boulardii (Florastor) 250 mg PO TID [facility] Last Admin: 06/05/18 17:21 Dose: 250 mg - Labs Labs: 06/05/18 07:58 06/05/18 07:58 PT 15.8 SECONDS (9.7-12.2) H 05/28/18 11:52 INR 1.4 05/28/18 11:52 APTT 33 SECONDS (21-34) D 05/28/18 11:52 - Constitutional Appears: No Acute Distress - Head Exam Head Exam: NORMAL INSPECTION - Eye Exam Eye Exam: EOMI, PERRL - ENT Exam ENT Exam: Normal Oropharynx - Neck Exam Neck Exam: Normal Inspection - Respiratory Exam Respiratory Exam: Rales (BASILAR RALES), NORMAL BREATHING PATTERN - Cardiovascular Exam Cardiovascular Exam: REGULAR RHYTHM, +S1, +S2 - GI/Abdominal Exam GI & Abdominal Exam: Soft, Normal Bowel Sounds. absent: Tenderness - Extremities Exam Extremities Exam: Normal Capillary Refill (1+), Pedal Edema. absent: Calf Tenderness - Neurological Exam Neurological Exam: Alert, Awake, CN II-XII Intact, Normal Gait, Oriented x3, Reflexes Normal - Psychiatric Exam Psychiatric exam: Normal Mood - Skin Skin Exam: Normal Color, Warm Assessment and Plan (1) UTI (urinary tract infection) with pyuria Status: Acute (2) Hematuria Status: Acute (3) CHF (congestive heart failure) Status: Acute (4) A-fib Status: Acute (5) H/O mitral valve repair Status: Acute (6) Pulmonary hypertension Status: Acute - Assessment and Plan (Free Text) Plan: CONTINUE IV AZACTAM 1GM IVPB Q 12HRLY AND WATCH CLOSELY FOR ANY REACTIONS. 06/01/18-DAY 4 X 3DAYS MORE TILL 06/08/18. ADD BENADRYL 50MG PO 30MIN PRIOR TO EACH DOSE OF IV AZACTAM. fOLLOW-UP RENAL FUNCTIONS CLOSELY. DIURETICS PER CARDIO/PMD. CASE DISCUSSED WITH STAFF.
--- NOTE | 2018-06-06 00:09 | CP.PCM.PN ---
Subjective - Date & Time of Evaluation Date of Evaluation: 06/05/18 Time of Evaluation: 17:50 - Subjective Subjective: Patient seen and evaluated Denies chest pain Still has dyspnea Objective - Vital Signs/Intake and Output Vital Signs (last 24 hours): Temp Pulse Resp BP Pulse Ox 97.8 F 63 18 133/57 L 100 06/05/18 16:00 06/05/18 16:00 06/05/18 16:00 06/05/18 16:00 06/05/18 16:00 Intake and Output: 06/05/18 06/06/18 18:59 06:59 Intake Total 800 Balance 800 - Medications Medications: Current Medications Acetaminophen (Tylenol 325mg Tab) 650 mg PO BID PRN PRN Reason: Pain, moderate (4-7) Last Admin: 05/31/18 13:33 Dose: 650 mg Albuterol/Ipratropium (Duoneb 3 Mg/0.5 Mg (3 Ml) Ud) 3 ml INH RQ6 PRN PRN Reason: Shortness of Breath Alprazolam (Xanax) 0.5 mg PO BID PRN PRN Reason: Anxiety Last Admin: 06/05/18 21:23 Dose: 0.5 mg Apixaban (Eliquis) 2.5 mg PO Q12 [facility] Last Admin: 06/05/18 21:23 Dose: 2.5 mg Digoxin (Digoxin) 0.125 mg PO DAILY [facility] Last Admin: 06/05/18 09:19 Dose: 0.125 mg Diphenhydramine HCl (Benadryl) 50 mg PO Q12 [facility] Last Admin: 06/05/18 00:19 Dose: 50 mg Docusate Sodium (Colace) 100 mg PO TID [facility] Last Admin: 06/05/18 17:21 Dose: 100 mg Famotidine (Pepcid) 20 mg PO DAILY [facility] Last Admin: 06/05/18 09:19 Dose: 20 mg Furosemide (Lasix) 40 mg PO DAILY [facility] Last Admin: 06/05/18 09:20 Dose: 40 mg Home Med (Patient's Own Medication) 1 tab PO BID [facility] Last Admin: 06/05/18 17:21 Dose: 1 tab Home Med (Patient's Own Control Medication) 1 tab PO HS [facility] Last Admin: 06/05/18 22:55 Dose: 1 tab Aztreonam 1 gm/ Sodium (Chloride) 100 mls @ 100 mls/hr IVPB Q12H [facility]; Protocol Last Admin: 06/05/18 23:43 Dose: 100 mls/hr Metoprolol Succinate (Toprol Xl) 25 mg PO DAILY [facility] Last Admin: 06/05/18 09:19 Dose: 25 mg Saccharomyces Boulardii (Florastor) 250 mg PO TID [facility] Last Admin: 06/05/18 17:21 Dose: 250 mg - Labs Labs: 06/05/18 07:58 06/05/18 07:58 PT 15.8 SECONDS (9.7-12.2) H 05/28/18 11:52 INR 1.4 05/28/18 11:52 APTT 33 SECONDS (21-34) D 05/28/18 11:52
[2018-06-06 08:24] VITALS: RESP 20
[2018-06-06] MEDS: Digoxin 125 mcg (0.125 mg) Tab PO SCH (09:57)
[2018-06-06] MEDS: Saccharomyces Boulardi 250 mg Cap PO SCH ×3 (09:57→18:28)
[2018-06-06] MEDS: SILDENAFIL CITRATE 20 MG PO SCH ×2 (10:00→18:29)
[2018-06-06] MEDS: Albuterol-Ipratrop 3 mg / 0.5 (3 ml) UD INH PRN ×2 (12:42→19:07)
[2018-06-06] MEDS: Aztreonam 1 GM in Sodium Chloride 0.9% 100 ML IVPB SCH (13:27)
[2018-06-06] MEDS: Metoprolol Succinate 25 mg XL Tab PO SCH (13:27)
--- NOTE | 2018-06-06 16:19 | PN ---
DATE: 06/06/2018 SUBJECTIVE: The patient is seen. According to nurse, she gave her earlier Xanax. The patient continues to be very anxious and somatic. Today when seen, she was conversing with the doctor in [place], sitting. She is short of breath. She states she wants to go home, but she feels so weak and she states there is nobody to help her at home except her . The patient was reluctant initially to go for subacute rehab, but she states that she will go and advised the doctor as well as the secondary social studies teacher to discuss it with her son. The patient feels she is so weak to go home, and she needed help. The patient states she will go for [facility] for reconditioning. The patient is still taking Restoril 7.5 mg at bedtime and Xanax 0.5 mg b.i.d. p.r.n., but she is not sleeping well. She states that her sleep is still very interrupted, and also it has been noted that when she gets her nebulizer in the evening, the patient becomes more anxious and cannot sleep. The patient is advised not to have any nebulizer treatment if possible in the evening, so it will not make her nervous and then it will not affect her sleep. Other than that, she has been very compliant with her meds, but has a very high free floating anxiety level. REVIEW OF SYSTEMS: Alert and oriented x3, seen in her room in [facility]. Still very anxious and somatic. She states that she is short of breath. PHYSICAL EXAMINATION: VITAL SIGNS: Temperature is 97.8, pulse 64, blood pressure 126/78, respirations 20, and oxygen saturation 97%. SKIN: No diaphoresis. HEENT: No headache. No dizziness. NECK: Supple. RESPIRATORY: Has off and on shortness of breath. CARDIOVASCULAR: No chest pain. GASTROINTESTINAL: She is eating well. EXTREMITIES: Complaining of weakness and also unsteady gait. She said she feels weak. NEUROLOGIC: Alert and oriented x3. GENITOURINARY: Not having any urinary problems or dysuria. MENTAL STATUS EXAMINATION: Elderly female, who is obese. Oriented x3, but very anxious and somatic. Affect is reactive. Speech is spontaneous. Conversing mostly in [place]au[place], knows limited Peruvian. Thought process, coherent. Thought content, the patient wants to go home, but has agreed to go for [facility]. She is conversing in [place], stating that she feels so weak and she has no energy to go home. She is afraid that if she goes home, she will come back to the hospital. She said her is the only help at home, although her children are checking on her regularly. No psychosis. No suicidal ideation. Attention and memory seem to be fair. Insight and judgment, fair. Impulse control is fair. IMPRESSION: Mood disorder, anxiety disorder, not otherwise specified. PLAN AND RECOMMENDATIONS: The patient is seen. Meds reviewed. May continue her Xanax 0.5 mg p.o. b.i.d. p.r.n. and Restoril 7.5 mg at bedtime although the dose is too low, but the patient still has trouble sleeping. The patient is amenable to go for [facility] today for reconditioning. She states that she is still too weak to go home. Mani Ruvalcaba MD
--- NOTE | 2018-06-06 18:12 | CP.PCM.PN ---
Subjective - Date & Time of Evaluation Date of Evaluation: 06/06/18 Time of Evaluation: 18:10 - Subjective Subjective: Patient now complaining of increasing coughing. Severe exertional dyspnea. She is also complaining of bilateral worsening leg swelling noted. No fever noted. Currently patient has a PICC line on the right upper extremity, there is a bl eeding noted On examination: Vital signs noted, blood pressure on the low side. Chest good air entry, wheezing bilaterally minimally noted Heart sounds are regular Extremities significantly worsening edema up to umbilical region noted No labs today Assessment and recommendation: 82-year-old female with a history of pulmonary hypertension severe, mitral valve disease, mitral valve repair, atrial flutter, status post ablation. Obstructive sleep apnea. Now severe pulmonary hypertension with the bilateral leg edema and worsening fluid overload status now, in my opinion patient is having increasing decompensated heart failure of the right side worsening. Patient is on oxygen and BiPAP and also bronchodilators. But not improving. On anticoagulation Eliquis 2.5 mg daily twice a day. He is also on aztreonam for urinary tract infection. The urine culture is last one is negative. Patient supposed to be transferred to rehab today, because of the worsening leg swelling, shortness of breath and abdominal swelling which is probably secondary to fluid overload state, I advised the patient to stay, give the Lasix IV, add Spironolactone, chest x-ray ordered. Patient is already on antibiotic. Continue the bronchodilators. Will possibly discharge if leg swelling improves and heart failure improves tomorrow Objective - Vital Signs/Intake and Output Vital Signs (last 24 hours): Temp Pulse Resp BP Pulse Ox 97.8 F 64 20 126/78 97 06/06/18 08:24 06/06/18 08:24 06/06/18 08:24 06/06/18 09:57 06/06/18 08:24 Intake and Output: 06/06/18 06/06/18 06:59 18:59 Intake Total 900 Balance 900 - Medications Medications: Current Medications Acetaminophen (Tylenol 325mg Tab) 650 mg PO BID PRN PRN Reason: Pain, moderate (4-7) Last Admin: 05/31/18 13:33 Dose: 650 mg Albuterol/Ipratropium (Duoneb 3 Mg/0.5 Mg (3 Ml) Ud) 3 ml INH RQ6 PRN PRN Reason: Shortness of Breath Last Admin: 06/06/18 12:42 Dose: 3 ml Alprazolam (Xanax) 0.5 mg PO BID PRN PRN Reason: Anxiety Last Admin: 06/06/18 09:57 Dose: 0.5 mg Apixaban (Eliquis) 2.5 mg PO Q12 [facility] Last Admin: 06/06/18 09:57 Dose: 2.5 mg Digoxin (Digoxin) 0.125 mg PO DAILY [facility] Last Admin: 06/06/18 09:57 Dose: 0.125 mg Diphenhydramine HCl (Benadryl) 50 mg PO Q12 PRN Last Admin: 06/05/18 00:19 Dose: 50 mg Docusate Sodium (Colace) 100 mg PO TID [facility] Last Admin: 06/06/18 13:27 Dose: 100 mg Famotidine (Pepcid) 20 mg PO DAILY [facility] Last Admin: 06/06/18 09:57 Dose: 20 mg Furosemide (Lasix) 40 mg IVP STAT STA Stop: 06/06/18 18:09 Furosemide (Lasix) 40 mg IVP Q12 [facility] Home Med (Patient's Own Medication) 1 tab PO BID [facility] Last Admin: 06/06/18 10:00 Dose: 1 tab Home Med (Patient's Own Control Medication) 1 tab PO HS [facility] Last Admin: 06/05/18 22:55 Dose: 1 tab Aztreonam 1 gm/ Sodium (Chloride) 100 mls @ 100 mls/hr IVPB Q12H [facility]; Protocol Last Admin: 06/06/18 13:27 Dose: 100 mls/hr Metoprolol Succinate (Toprol Xl) 25 mg PO DAILY [facility] Last Admin: 06/06/18 13:27 Dose: 25 mg Saccharomyces Boulardii (Florastor) 250 mg PO TID [facility] Last Admin: 06/06/18 13:27 Dose: 250 mg Spironolactone (Aldactone) 12.5 mg PO BID [facility] - Labs Labs: 06/05/18 07:58 06/05/18 07:58 PT 15.8 SECONDS (9.7-12.2) H 05/28/18 11:52 INR 1.4 05/28/18 11:52 APTT 33 SECONDS (21-34) D 05/28/18 11:52
[2018-06-06] MEDS ORDERED: MethylPREDNISolone 40 mg Vial IVP STA ×2 (18:52→19:02)
[2018-06-06] MEDS: TEMAZEPAM 7.5MG PO SCH (20:59)
--- NOTE | 2018-06-06 22:57 | CP.PCM.PN ---
Subjective - Date & Time of Evaluation Date of Evaluation: 06/06/18 Time of Evaluation: 19:35 - Subjective Subjective: Patient seen and evaluated Dyspnea with minimal exertion Review Of Systems Constitutional: Negative for: Fever, Chills Gastrointestinal: Negative for: Abdominal Pain Genitourinary: Positive for: Hematuria. Negative for: Vaginal Discharge, Vaginal Bleeding Physical Exam - Physical Exam Appears: Non-toxic, No Acute Distress Skin: Normal Color, Warm, Dry, Ecchymosis (to left lateral hand and left forearm ) Head: Atraumatic, Normacephalic Eye(s): bilateral: Normal Inspection Oral Mucosa: Moist Neck: Supple Chest: Symmetrical, No Deformity, No Tenderness Cardiovascular: Rhythm Regular, No Murmur Respiratory: No Rales, No Rhonchi, Wheezing (inspiratory, bilaterally ) Gastrointestinal/Abdominal: Soft, No Tenderness, No Guarding, No Rebound Extremity: Normal ROM, Capillary Refill (less than 2 seconds ), Other (pitting edema bilaterally, left>right) Pulses: Left Dorsalis Pedis: Normal, Right Dorsalis Pedis: Normal Neurological/Psych: Oriented x3, Normal Speech, Normal Cognition Assessment & Plan - Assessment and Plan (Free Text) Assessment: Impression: Shortness of breath Severe Pulmonary HTN Hx MV repair O2/BiPAP and Lasix as needed Likely benefit from Pulm HTN clinic Patient now complaining of increasing coughing. Severe exertional dyspnea. She is also complaining of bilateral worsening leg swelling noted. No fever noted. Currently patient has a PICC line on the right upper extremity, there is a bleeding noted On examination: Vital signs noted, blood pressure on the low side. Chest good air entry, wheezing bilaterally minimally noted Heart sounds are regular Extremities significantly worsening edema up to umbilical region noted No labs today Assessment and recommendation: 82-year-old female with a history of pulmonary hypertension severe, mitral valve disease, mitral valve repair, atrial flutter, status post ablation. Obstructive sleep apnea. Now severe pulmonary hypertension with the bilateral leg edema and worsening fluid overload status now, in my opinion patient is having increasing decompensated heart failure of the right side worsening. Patient is on oxygen and BiPAP and also bronchodilators. But not improving. On anticoagulation Eliquis 2.5 mg daily twice a day. He is also on aztreonam for urinary tract infection. The urine culture is last one is negative. Patient supposed to be transferred to rehab today, because of the worsening leg swelling, shortness of breath and abdominal swelling which is probably secondary to fluid overload state, I advised the patient to stay, give the Lasix IV, add Spironolactone, chest x-ray ordered. Patient is already on antibiotic. Continue the bronchodilators. Will possibly discharge if leg swelling improves and heart failure improves tomorrow Objective - Vital Signs/Intake and Output Vital Signs (last 24 hours): Temp Pulse Resp BP Pulse Ox 97.2 F L 66 20 114/61 99 06/06/18 17:46 06/06/18 19:56 06/06/18 17:46 06/06/18 18:28 06/06/18 17:46 Intake and Output: 06/06/18 06/07/18 18:59 06:59 Intake Total 900 Balance 900 - Medications Medications: Current Medications Acetaminophen (Tylenol 325mg Tab) 650 mg PO BID PRN PRN Reason: Pain, moderate (4-7) Last Admin: 05/31/18 13:33 Dose: 650 mg Albuterol/Ipratropium (Duoneb 3 Mg/0.5 Mg (3 Ml) Ud) 3 ml INH RQ6 PRN PRN Reason: Shortness of Breath Last Admin: 06/06/18 19:07 Dose: 3 ml Alprazolam (Xanax) 0.5 mg PO BID PRN PRN Reason: Anxiety Last Admin: 06/06/18 21:19 Dose: 0.5 mg Apixaban (Eliquis) 2.5 mg PO Q12 [facility] Last Admin: 06/06/18 21:19 Dose: 2.5 mg Digoxin (Digoxin) 0.125 mg PO DAILY [facility] Last Admin: 06/06/18 09:57 Dose: 0.125 mg Diphenhydramine HCl (Benadryl) 50 mg PO Q12 PRN Last Admin: 06/06/18 19:51 Dose: 50 mg Docusate Sodium (Colace) 100 mg PO TID [facility] Last Admin: 06/06/18 18:29 Dose: 100 mg Famotidine (Pepcid) 20 mg PO DAILY [facility] Last Admin: 06/06/18 09:57 Dose: 20 mg Furosemide (Lasix) 40 mg IVP Q12 [facility] Home Med (Patient's Own Medication) 1 tab PO BID [facility] Last Admin: 06/06/18 18:29 Dose: 1 tab Home Med (Patient's Own Control Medication) 1 tab PO HS [facility] Last Admin: 06/06/18 20:59 Dose: Not Given Aztreonam 1 gm/ Sodium (Chloride) 100 mls @ 100 mls/hr IVPB Q12H [facility]; Protocol Last Admin: 06/06/18 13:27 Dose: 100 mls/hr Metoprolol Succinate (Toprol Xl) 25 mg PO DAILY [facility] Last Admin: 06/06/18 13:27 Dose: 25 mg Saccharomyces Boulardii (Florastor) 250 mg PO TID [facility] Last Admin: 06/06/18 18:28 Dose: 250 mg Spironolactone (Aldactone) 12.5 mg PO BID [facility] Last Admin: 06/06/18 21:19 Dose: 12.5 mg - Labs Labs: 06/05/18 07:58 06/05/18 07:58 PT 15.8 SECONDS (9.7-12.2) H 05/28/18 11:52 INR 1.4 05/28/18 11:52 APTT 33 SECONDS (21-34) D 05/28/18 11:52
--- NOTE | 2018-06-07 00:40 | CP.PCM.PN ---
Subjective - Date & Time of Evaluation Date of Evaluation: 06/06/18 Time of Evaluation: 23:15 - Subjective Subjective: LATE ENTRY 06/06/18. PT SEEN AND SPOKE TO SON. AFEBRILE COMFORTABLE DENIES FURTHER ITCHING . S/P BETHANY PICC LINE 06/05/18 PER PMD. DISCUSSED WITH SON. PT FOR ARIANA . TOLERATING IV AZACTAM. ON BENADRYL FOR ITCHING /AND OBSERVE CLOSELY. LABS ; REVIEWED REPEAT URINE CULTURES 06/04/18 NEGATIVE GROWTH Objective - Vital Signs/Intake and Output Vital Signs (last 24 hours): Temp Pulse Resp BP Pulse Ox 97.2 F L 64 20 114/61 99 06/06/18 17:46 06/06/18 23:29 06/06/18 17:46 06/06/18 18:28 06/06/18 17:46 Intake and Output: 06/06/18 06/07/18 18:59 06:59 Intake Total 900 Balance 900 - Medications Medications: Current Medications Acetaminophen (Tylenol 325mg Tab) 650 mg PO BID PRN PRN Reason: Pain, moderate (4-7) Last Admin: 05/31/18 13:33 Dose: 650 mg Albuterol/Ipratropium (Duoneb 3 Mg/0.5 Mg (3 Ml) Ud) 3 ml INH RQ6 PRN PRN Reason: Shortness of Breath Last Admin: 06/06/18 19:07 Dose: 3 ml Alprazolam (Xanax) 0.5 mg PO BID PRN PRN Reason: Anxiety Last Admin: 06/06/18 21:19 Dose: 0.5 mg Apixaban (Eliquis) 2.5 mg PO Q12 [facility] Last Admin: 06/06/18 21:19 Dose: 2.5 mg Digoxin (Digoxin) 0.125 mg PO DAILY [facility] Last Admin: 06/06/18 09:57 Dose: 0.125 mg Diphenhydramine HCl (Benadryl) 50 mg PO Q12 PRN Last Admin: 06/06/18 19:51 Dose: 50 mg Docusate Sodium (Colace) 100 mg PO TID [facility] Last Admin: 06/06/18 18:29 Dose: 100 mg Famotidine (Pepcid) 20 mg PO DAILY [facility] Last Admin: 06/06/18 09:57 Dose: 20 mg Furosemide (Lasix) 40 mg IVP Q12 [facility] Home Med (Patient's Own Medication) 1 tab PO BID [facility] Last Admin: 06/06/18 18:29 Dose: 1 tab Home Med (Patient's Own Control Medication) 1 tab PO HS [facility] Last Admin: 06/06/18 20:59 Dose: Not Given Aztreonam 1 gm/ Sodium (Chloride) 100 mls @ 100 mls/hr IVPB Q12H [facility]; Protocol Last Admin: 06/06/18 13:27 Dose: 100 mls/hr Metoprolol Succinate (Toprol Xl) 25 mg PO DAILY [facility] Last Admin: 06/06/18 13:27 Dose: 25 mg Saccharomyces Boulardii (Florastor) 250 mg PO TID [facility] Last Admin: 06/06/18 18:28 Dose: 250 mg Spironolactone (Aldactone) 12.5 mg PO BID [facility] Last Admin: 06/06/18 21:19 Dose: 12.5 mg - Labs Labs: 06/05/18 07:58 06/05/18 07:58 PT 15.8 SECONDS (9.7-12.2) H 05/28/18 11:52 INR 1.4 05/28/18 11:52 APTT 33 SECONDS (21-34) D 05/28/18 11:52 - Constitutional Appears: No Acute Distress - Head Exam Head Exam: NORMAL INSPECTION - Eye Exam Eye Exam: EOMI, PERRL - ENT Exam ENT Exam: Normal Oropharynx - Neck Exam Neck Exam: Normal Inspection - Respiratory Exam Respiratory Exam: Decreased Breath Sounds, NORMAL BREATHING PATTERN - Cardiovascular Exam Cardiovascular Exam: REGULAR RHYTHM, +S1, +S2 - GI/Abdominal Exam GI & Abdominal Exam: Soft, Normal Bowel Sounds. absent: Tenderness - Extremities Exam Extremities Exam: Normal Capillary Refill, Pedal Edema. absent: Calf Tenderness - Neurological Exam Neurological Exam: Alert, Awake, CN II-XII Intact, Normal Gait, Oriented x3, Reflexes Normal - Psychiatric Exam Psychiatric exam: Normal Mood - Skin Skin Exam: Normal Color, Warm Assessment and Plan (1) UTI (urinary tract infection) with pyuria Status: Acute (2) Hematuria Status: Acute (3) CHF (congestive heart failure) Status: Acute (4) A-fib Status: Acute (5) H/O mitral valve repair Status: Acute (6) Pulmonary hypertension Status: Acute - Assessment and Plan (Free Text) Plan: CONTINUE IV AZACTAM 1GM IVPB Q 12HRLY AND WATCH CLOSELY FOR ANY REACTIONS. 06/01/18-DAY 5 X 2 DAYS MORE TILL 06/08/18. ON BENADRYL 50MG PO 30MIN PRIOR TO EACH DOSE OF IV AZACTAM. fOLLOW-UP RENAL FUNCTIONS CLOSELY. DIURETICS PER CARDIO/PMD. CASE DISCUSSED WITH STAFF. PREPARATION FOR ARIANA PER PTS SON. WILL F/U PT WHILE IN HOUSE.
[2018-06-07] MEDS: Aztreonam 1 GM in Sodium Chloride 0.9% 100 ML IVPB SCH ×2 (01:33→13:13)
[2018-06-07 02:29] VITALS: PULSE 66
[2018-06-07] MEDS: Digoxin 125 mcg (0.125 mg) Tab PO SCH (09:46)
[2018-06-07] MEDS: Saccharomyces Boulardi 250 mg Cap PO SCH ×2 (09:46→13:13)
[2018-06-07 09:47] VITALS: BP 136/70; PULSE 66
[2018-06-07] MEDS: Metoprolol Succinate 25 mg XL Tab PO SCH (09:47)
[2018-06-07] MEDS: SILDENAFIL CITRATE 20 MG PO SCH (09:47)
--- NOTE | 2018-06-07 11:13 | RAD ---
Date of service: 06/06/2018 HISTORY: PNA COMPARISON: 05/28/[address] abdomen and pelvis 05/25/2018 FINDINGS: LUNGS: There is interval left mid lung zone linear atelectasis and/or trace fluid in the lateral fissure suggested. There is interval hazy opacity over the right costophrenic angle along with multiple coalescing lucencies which are in part probably related to some coiling thread-like leads high a cardiac reason for them is inferred. PLEURA: Small right pleural effusion-probably similar. No pneumothorax apparent. CARDIOVASCULAR: There is presence of aortic atherosclerotic calcification on x-ray. Hardware probably relating to prostatic bowel or leaflet the intervention projects over the left heart border. There is history of prior mitral leaflet repair. Cardiomegaly-similar. Mild pulmonary venous congestion probable. OSSEOUS STRUCTURES: Thoraco lumbar scoliosis. Leftward convexity thoraco lumbar junction. Bilateral shoulder arthrosis. VISUALIZED UPPER ABDOMEN: Normal. OTHER FINDINGS: None. IMPRESSION: No dense consolidation seen. Mixed lucency and low-density opacity over inferolateral hemithorax-combined thread-like atelectasis along with right inferolateral pleural inflammatory changes are inferred. Trace right pleural effusion here probably present as well. The opacity here is slightly increased some interval increase right sub pleural parenchymal inflammatory changes are inferred. Continued surveillance here recommended. Apparent cardiac related thread-like coiling wires in the vicinity. Clinical correlation is essential. Left lateral mid lung zone interval increased discoid atelectasis and/or foot fissural fluid present. Cardiomegaly, atherosclerotic vascular disease and mild pulmonary venous congestion-venous congestive changes-likely similar. Comments: Study marked for PA review .
[2018-06-07 12:39] VITALS: TEMP 97.5; O2SAT 95
--- NOTE | 2018-06-07 16:41 | CP.PCM.DIS ---
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 Comment: Physician Instructions: Reason For Exam: copd 05/30/18 07:52 Cardiology Consult Routine Comment: Consulting Provider: Bipin Castaneda Consulting Physician: Bipin Castaneda Reason for Consult: chf Psychiatry Consult Routine Comment: Consulting Provider: Mani Ponce Consulting Physician: Mani Ponce Reason for Consult: depression 05/31/18 06:59 Infectious Disease Consult Routine Comment: Consulting Provider: Jhonny Kee Consulting Physician: Jhonny Kee Reason for Consult: uti cipro resistant, pen allergy Hospital Course - Lab Results Lab Results: Micro Results 06/04/18 09:07 Urine,Catheterized Urine Culture - Final No Growth (<1,000 CFU/ML) 05/28/18 16:45 Blood Blood Culture - Final NO GROWTH AFTER 5 DAYS 05/28/18 16:45 Blood Gram Stain - Final TEST NOT PERFORMED 05/28/18 16:30 Blood Blood Culture - Final NO GROWTH AFTER 5 DAYS 05/28/18 16:30 Blood Gram Stain - Final TEST NOT PERFORMED 05/31/18 09:38 Urine Random Urine Culture - Final Escherichia Coli 05/30/18 09:34 Urine,Clean Catch Urine Culture - Final Escherichia Coli 05/28/18 12:00 Urine Random Urine Culture - Final Escherichia Coli Beta Hemolytic Strep Group B Most Recent Lab Values WBC 8.6 K/uL (4.8-10.8) 06/05/18 07:58 RBC 3.67 Mil/uL (3.80-5.20) L 06/05/18 07:58 Hgb 10.5 g/dL (11.0-16.0) L 06/05/18 07:58 Hct 32.8 % (34.0-47.0) L 06/05/18 07:58 MCV 89.2 fL (81.0-99.0) 06/05/18 07:58 MCH 28.6 pg (27.0-31.0) 06/05/18 07:58 MCHC 32.1 g/dL (33.0-37.0) L 06/05/18 07:58 RDW 17.2 % (11.5-14.5) H 06/05/18 07:58 Plt Count 214 K/uL (130-400) 06/05/18 07:58 MPV 9.0 fL (7.2-11.7) 06/05/18 07:58 Neut % (Auto) 69.8 % (50.0-75.0) 06/05/18 07:58 Lymph % (Auto) 6.9 % (20.0-40.0) L 06/05/18 07:58 Stanton % (Auto) 9.3 % (0.0-10.0) 06/05/18 07:58 Eos % (Auto) 12.9 % (0.0-4.0) H 06/05/18 07:58 Baso % (Auto) 1.1 % (0.0-2.0) 06/05/18 07:58 Neut # (Auto) 6.0 K/uL (1.8-7.0) 06/05/18 07:58 Lymph # (Auto) 0.6 K/uL (1.0-4.3) L 06/05/18 07:58 Stanton # (Auto) 0.8 K/uL (0.0-0.8) 06/05/18 07:58 Eos # (Auto) 1.1 K/uL (0.0-0.7) H 06/05/18 07:58 Baso # (Auto) 0.1 K/uL (0.0-0.2) 06/05/18 07:58 Neutrophils % (Manual) 81 % (50-75) H 06/05/18 07:58 Band Neutrophils % 1 % (0-2) 06/02/18 19:17 Lymphocytes % (Manual) 2 % (20-40) L 06/05/18 07:58 Monocytes % (Manual) 7 % (0-10) 06/05/18 07:58 Eosinophils % (Manual) 10 % (0-4) H 06/05/18 07:58 Basophils % (Manual) 1 % (0-2) 06/02/18 19:17 Platelet Estimate Normal (NORMAL) 06/05/18 07:58 Large Platelets Present 06/02/18 19:17 Polychromasia Slight 06/05/18 07:58 Hypochromasia (manual) Slight 06/05/18 07:58 Poikilocytosis (manual Slight 06/02/18 19:17 Anisocytosis (manual) Slight 06/05/18 07:58 Target Cells Slight 06/05/18 07:58 Ovalocytes Slight 06/05/18 07:58 ESR 27 mm/hr (0-20) H 05/29/18 07:19 PT 15.8 SECONDS (9.7-12.2) H 05/28/18 11:52 INR 1.4 05/28/18 11:52 APTT 33 SECONDS (21-34) D 05/28/18 11:52 Sodium 135 mmol/L (132-148) 06/05/18 07:58 Potassium 4.3 mmol/L (3.6-5.2) 06/05/18 07:58 Chloride 100 mmol/L (98-107) 06/05/18 07:58 Carbon Dioxide 26 mmol/L (22-30) 06/05/18 07:58 Anion Gap 13 (10-20) 06/05/18 07:58 BUN 24 mg/dL (7-17) H 06/05/18 07:58 Creatinine 1.2 mg/dL (0.7-1.2) 06/05/18 07:58 Est GFR ( Amer) 52 06/05/18 07:58 Est GFR (Non-Af Amer) 43 06/05/18 07:58 Random Glucose 104 mg/dL (65-105) D 06/05/18 07:58 Calcium 8.8 mg/dl (8.6-10.4) 06/05/18 07:58 Phosphorus 3.9 mg/dL (2.5-4.5) 06/05/18 07:58 Magnesium 2.1 mg/dL (1.6-2.3) 06/05/18 07:58 Total Bilirubin 1.9 mg/dL (0.2-1.3) H 06/05/18 07:58 AST 41 U/L (14-36) H D 06/05/18 07:58 ALT 36 U/L (9-52) 06/05/18 07:58 Alkaline Phosphatase 152 U/L (38-126) H 06/05/18 07:58 Troponin I 0.0250 ng/mL (0.00-0.120) 05/28/18 11:52 C-Reactive Protein 65.00 mg/L (0.0-9.9) H 05/29/18 07:19 NT-Pro-B Natriuret Pep 4430 pg/mL (0-900) H 05/28/18 11:52 Total Protein 6.9 g/dL (6.3-8.3) 06/05/18 07:58 Albumin 3.8 g/dL (3.5-5.0) 06/05/18 07:58 Globulin 3.1 gm/dL (2.2-3.9) 06/05/18 07:58 Albumin/Globulin Ratio 1.2 (1.0-2.1) 06/05/18 07:58 Vitamin B12 > 1000 pg/mL (239-931) H 05/30/18 17:03 Folate > 20.0 ng/mL 05/30/18 17:03 Procalcitonin 0.17 NG/ML (0.19-0.49) L 05/29/18 07:19 TSH 3rd Generation 3.53 mIU/L (0.46-4.68) 05/30/18 17:03 Urine Color Yellow (YELLOW) 06/04/18 09:07 Urine Clarity Hazy (Clear) 06/04/18 09:07 Urine pH 5.0 (5.0-8.0) 06/04/18 09:07 Ur Specific [place] 1.014 (1.003-1.030) 06/04/18 09:07 Urine Protein 1+ mg/dL (NEGATIVE) H 06/04/18 09:07 Urine Glucose (UA) Normal mg/dL (Normal) 06/04/18 09:07 Urine Ketones Negative mg/dL (NEGATIVE) 06/04/18 09:07 Urine Blood 1+ (NEGATIVE) H 06/04/18 09:07 Urine Nitrate Negative (NEGATIVE) 06/04/18 09:07 Urine Bilirubin Negative (NEGATIVE) 06/04/18 09:07 Urine Urobilinogen Normal mg/dL (0.2-1.0) 06/04/18 09:07 Ur Leukocyte Esterase Trace Naomi/uL (Negative) 06/04/18 09:07 Urine WBC (Auto) 12 /hpf (0-5) H 06/04/18 09:07 Urine RBC (Auto) 19 /hpf (0-3) H 06/04/18 09:07 Urine WBC Clumps (Auto) Rare /hpf (NONE) H 05/30/18 09:34 Ur Squamous Epith Cells < 1 /hpf (0-5) 06/04/18 09:07 Urine Bacteria Rare (<OCC) 06/04/18 09:07 Urine Eosinophils Negative (NEGATIVE) 05/31/18 14:31 Digoxin < 0.4 ng/mL (0.8-2.0) L 05/28/18 11:52 Influenza Typ A,B (EIA) Negative for flu a/b (NEGATIVE) 06/06/18 19:09 Discharge Exam - Head Exam Head Exam: NORMAL INSPECTION Discharge Plan - Discharge Medications Prescriptions: Alprazolam [Xanax] 0.5 mg PO Q8 PRN #90 tab PRN Reason: Anxiety - Follow Up Plan Condition: FAIR Disposition: HOME/ ROUTINE Instructions: Heart Healthy Diet, Heart Failure, Adult (DC), Pulmonary Hypertension, Adult (DC) Referrals: Bipin Castaneda MD [Staff Provider] - Mani Ponce MD [Staff Provider] - Jhonny Kee MD [Staff Provider] - Bambi Cruz MD [Staff Provider] - Ashley Lomax MD [Staff Provider] -
== END 2018-06-07 18:30 | disposition home or self-care (01) | DRG 690 ==
LOC: C.ER 10:36 → INTOOBSV 12:36 → C.9E 12:36 → C.5S 13:12 → OBSVTOIN 05-29 21:49 → C.5S 05-30 16:47
PROVIDERS: ADMIT Internal Medicine; ATTEND Internal Medicine
PROC: 5A09557 Assistance with Respiratory Ventilation, Greater than 96 Consecutive Hours, Continuous Positive Airway Pressure (ICD-10-PCS; principal; 2018-05-29)
DX: N39.0 Urinary tract infection, site not specified (principal); D68.9 Coagulation defect, unspecified; I48.92 Unspecified atrial flutter; R31.9 Hematuria, unspecified; I48.91 Unspecified atrial fibrillation; Z95.2 Presence of prosthetic heart valve; I50.9 Heart failure, unspecified; J84.10 Pulmonary fibrosis, unspecified; I11.0 Hypertensive heart disease with heart failure; G47.33 Obstructive sleep apnea (adult) (pediatric); I27.20 Pulmonary hypertension, unspecified; J44.9 Chronic obstructive pulmonary disease, unspecified; Z88.0 Allergy status to penicillin; F41.9 Anxiety disorder, unspecified; B96.20 Unspecified Escherichia coli [E. coli] as the cause of diseases classified elsewhere